=== PATIENT | female | born 1990 | race Caucasian/White ===

== ENCOUNTER 2019-10-15 06:32 | Inpatient (IN) | payer OTHER, SELFPAY ==
[2019-10-15] VITALS (139 sets, daily range): BP systolic 90–152; BP diastolic 31–94; PULSE 73–153; RESP 16; TEMP 36.6–37.9; O2SAT 97–100; BMI 42.6
[2019-10-15 07:40] LABS: Basophils Percent Auto 0.1 % (0.2-1.2); Eosinophils Absolute Auto 0.1 K/mm3 (0-0.3); Eosinophils Percent Auto 1.4 % (0-4.4); Hematocrit 27.8 % (37.0-47.0); Hemoglobin 8.8 g/dL (12.0-15.0); Immature Granulocyte Absolute 0.04 K/mm3 (0.00-0.031); Immature Granulocyte Percent A 0.6 % (0-0.5); Lymphocytes Absolute Auto 1.25 K/mm3 (0.9-3.2); Lymphocytes Percent Auto 17.9 % (18.3-44.2); Mean Corpuscular HGB Conc 31.7 g/dl (32-36); Mean Corpuscular Hemoglobin 25.4 pg (26-34); Mean Corpuscular Volume 80.3 fl (80-100); Mean Platelet Volume 9.6 fl (7.4-10.4); Monocytes Absolute Auto 0.6 K/mm3 (0.1-0.6); Platelet Count Result 183 k/mm3 (150-375); Red Blood Count 3.46 M/mm3 (4.2-5.4); Red Cell Distribution Width 13.6 % (11.5-14.5)
[2019-10-15] MEDS: LACTATED RINGERS 1,000 ML 125 ML IV CONT (07:44)
--- NOTE | 2019-10-15 07:52 | LDADM ---
This patient, Colin James, was admitted to Labor/Delivery/Recovery 106 on 10/15/19 at 06:32. Plans for labor, pain management and were discussed with patient. Patient/family oriented to hospital policies and general routines including ID bracelet, bed and alarms, visiting hours, pain management, procedures, bathroom and other care routines, personal items, smoking policy, room service/diet and guest tray routines, security routines, and visiting hours. Patient/Family are encouraged to report perceived risks to care and to ask questions if they do not understand what they are told or what they should do. See OBIX for further documentation.
--- NOTE | 2019-10-15 08:15 | WPDOBADMIT ---
Obstetrics - Admit Note Admission Note: 29 y/o @ 37w1d here for induction of labor d/t cholestasis and hypertension. record reviewed. No pertinent additions to the history and/or any subsequent changes in the physical findings that are not consistent with the expected course of the were found. Additions to the history and/or subsequent changes in the physical findings follow. None.
--- NOTE | 2019-10-15 09:57 | WPDANESEPP ---
Anes - Eval Pre Procedure Procedure: labor epidural Date/Time: 10/15/19 09:57 Surgeon: magy Preop Diagnosis: labor pain Pre Op Diagnosis: induction of labor Patient Data Age: 29 Gender: F Height: 1.73 m Weight: 127.27 kg Last Vital Signs Temp 37.6 C H 10/15/19 09:43 Pulse 86 10/15/19 09:57 BP 114/57 L 10/15/19 09:57 Pulse Ox 100 10/15/19 09:53 Allergies Allergy/AdvReac Type Severity Reaction Status Date / Time dimenhydrinate AdvReac Other Verified 09/09/19 12:56 [From Dramamine] hydrocodone [From Vicodin] AdvReac Nausea and Verified 09/09/19 12:56 Vomiting Home Medications Medication Instructions Recorded Confirmed Type amoxicillin 500 mg PO QID 10/07/19 10/15/19 History ursodiol 500 mg PO BID 10/07/19 10/15/19 History Laboratory Tests 10/15/19 10/15/19 10/15/19 06:53 06:53 06:53 WBC 7.0 K/mm3 K/mm3 (4.5-10.0) RBC 3.46 M/mm3 L M/mm3 (4.2-5.4) Hgb 8.8 g/dL L g/dL (12.0-15.0) Hct 27.8 % L % (37.0-47.0) MCV 80.3 fl fl (80-100) MCH 25.4 pg L pg (26-34) MCHC 31.7 g/dl L g/dl (32-36) RDW 13.6 % % (11.5-14.5) Plt Count 183 k/mm3 k/mm3 (150-375) MPV 9.6 fl fl (7.4-10.4) Immature Gran % (Auto) 0.6 % H % (0-0.5) Neut % (Auto) 71.0 % % (45.5-73.1) Lymph % (Auto) 17.9 % L % (18.3-44.2) Millard % (Auto) 9.0 % H % (2.6-8.5) Eos % (Auto) 1.4 % % (0-4.4) Baso % (Auto) 0.1 % L % (0.2-1.2) Lymph # (Auto) 1.25 K/mm3 K/mm3 (0.9-3.2) Millard # (Auto) 0.6 K/mm3 K/mm3 (0.1-0.6) Eos # (Auto) 0.1 K/mm3 K/mm3 (0-0.3) Baso # (Auto) 0.0 K/mm3 K/mm3 (0.0-0.1) Abs Immat Gran (auto) 0.04 K/mm3 H K/mm3 (0.00-0.031) Absolute Neuts (auto) 5.0 K/mm3 K/mm3 (1.3-6.7) Absolute Nucleated RBC 0.0 K/mm3 K/mm3 (0.0-0.012) Nucleated RBC % 0.0 % % (0.0-0.2) RPR Pending Blood Type O Positive Antibody Screen Negative Patient hx anesthesia problems: none Family hx anesthesia problems: none PMFSH Past Medical History Medical History (Updated 10/15/19 @ 10:01 by Dayna Lisa CRNA) Asthma Atrial tachycardia, paroxysmal Migraine Obesity Palpitations PCOS (polycystic ovarian syndrome) Preeclampsia with first , along with severe leg edema Sinus tachycardia Surgical History Surgical History History of orthopedic surgery multiple Family History Family History Mother History of blood clots Hypertension Hypothyroidism Grandparent Lupus Hyperthyroidism Stented coronary artery Grandparent Atrial fibrillation Grandparent Alzheimer disease Parkinson disease Grandparent Cancer Father Thyroid enlarged Social History Social History Smoking status: Never smoker Alcohol intake: former Drinks per week: 1 Substance use: never Gender identity (if verbalized by the patient): Female Spiritual care concerns: No Agree to blood products: Yes Exam Day of Procedure 10/15/19 09:57
--- NOTE | 2019-10-15 15:55 | P.PCNOB_ITS ---
OB - Delivery Note Procedure Delivery date: 10/15/19 Procedure: Cholestasis of Induction method: per pitocin protocol Delivery augmentation: rupture of membranes Delivery monitor: external FHT and external uterine Route of delivery: Episiotomy description: None Laceration description: Perineal - 1st Degree Delivery repair: vicryl Specimen: Yes Estimated blood loss (mL): 200 Anesthesia type: Epidural [place] Baby Date of : 10/15/19 Time of : 15:36 Weeks of gestation at delivery: 37 Weight (pounds): 7 Weight (ounces): 14 presentation: vertex position: Left Occiput Anterior Placenta delivery description: Spontaneous cord vessel description: 3 Vessels Narrative: Delivery per [facility]. Cord clamped at 2 minutes. I collected cord gasses myself. .75cc arterial 2cc venous. Then handed off to staff.
[2019-10-15] MEDS: WITCH HAZEL 40 PADS 1 PAD TOPICAL (20:08)
[2019-10-15] MEDS: BENZOCAINE 20% AER SPR (*SP) 56 GM CAN 1 SPRAY TOPICAL (20:08)
[2019-10-15] MEDS: IBUPROFEN 600 MG TABLET PO (20:32)
[2019-10-15] MEDS: POLYSACCHARIDE IRON COMPLEX 150 MG CAPSULE PO (20:33)
[2019-10-15] MEDS: DOCUSATE SODIUM 100 MG CAPSULE PO (20:33)
[2019-10-16 04:30] LABS: Hematocrit 26.1 % (37.0-47.0); Hemoglobin 8.1 g/dL (12.0-15.0)
--- NOTE | 2019-10-16 07:51 | P.PNOB_ITS ---
OB - PN: Subj Subjective Date/time seen: 10/16/19 07:51 Patient comments: no complaints and pain well controlled baby status: NICU OB - PN: Obj Data Labs CBC & Chem 7: 10/16/19 04:06 Labs: Laboratory Results - last 24 hr 10/15/19 10/16/19 06:53 04:06 Hgb 8.1 L Hct 26.1 L Blood Type O Positive Antibody Screen Negative OB - PN A/P Plan day: 1 Plan: discharge home and other Comments: RTC 4 weeks. Pt desires d/c d/t transfer. Time Spent With Patient Time: Total time spent is greater than 50% in coordination of care (as documented) at patient's floor/unit and/or counseling patient: Time with patient: less than 15 minutes Review of Systems 2 Review of Systems: All systems reviewed & are unremarkable except as noted in HPI and below Exam Narrative: Exam Narrative: Fundus firm and vaginal flow controlled. Lower ext nl. No redness, warmth, or tenderness. Neg homans. Const: General: comfortable Psych: Appearance: grossly normal Mental Status: mental status grossly normal Affect: normal affect Attitude: cooperative Judgement: Good judgement present (Psych)
--- NOTE | 2019-10-16 07:52 | PM.OBDSVD ---
DS: Diagnosis Admitting Diagnosis Admitting Diagnosis: Encounter for supervision of normal , unspecified, third trimester Discharge Diagnosis (1) Vaginal delivery: Code(s): O80 - Encounter for full-term uncomplicated delivery Status: Acute OB - DS: Summary Hospital Course Time spent discussing smoking cessation with patient: more than 10 minutes OB Procedures : None OB Procedures Intrapartum: Spontaneous Vag Delivery OB Procedures: : None Peripartum Data Delivery Method: Natural Vaginal complications: none Status at Discharge Functional status at discharge: independent ambulation Overall status at discharge: patient is back to baseline Time Spent with Patient Time attestation: Total time spent providing and/or coordinating discharge services: Time spent: Less than 30 minutes Specific discharge activities: Pt is going home early d/t transfer of infant. She does have a history of pre-eclampsia with previous . Denies symptoms. Very strict precautions given. Pt to return in 2 days for pp visit and at 1 week in our office. Pt verbalized understanding. Exam Const: General: comfortable Resp: Effort & Inspection: normal respiratory effort Auscultation: clear to auscultation bilaterally Cardio: Rate: regular rate Extrem: General: normal to inspection, no pedal edema and no calf tenderness Psych: Appearance: grossly normal Mental Status: mental status grossly normal Affect: normal affect Attitude: cooperative Thought content: Yes Normal thought content present Judgement: Good judgement present (Psych) Discharge Plan Discharge Attending physician on discharge: Bisi Agarwal Consulting providers: Guerline Matthews Discharging Clinician: Guerline Matthews Patient Disposition: Home, Self-Care Activity: pelvic rest Diet: as tolerated Discharge Instructions: Education: Mom and Baby Guide Given to: Mother Follow-Up: Call your delivering provider's office for an appointment to be seen in: 4-6 Weeks Mom should come to the [facility] for the follow-up appointment. Appointment Date/Time: October 18, 2019 at 11:00 am What to expect at your follow-up visit: Blood Pressure Check Physical Assessment Call [phone] if you are unable to keep your appointment time. BREAST CARE: 1. Wear a snug supportive bra. 2. For engorgement discomfort: Breast Feeding: A. Apply warm moist washcloths B. Express milk as needed to relieve engorgement C. Wear loose clothing 3. For sore nipples: A. Identify correct latch-on B. Apply warm moist washcloths before and after nursing C. Air dry nipples after nursing D. May apply Lansinoh cream to nipples PERINEAL CARE: 1. Until bleeding stops, use your ayleen bottle after urinating 2. Change your pad frequently throughout the day 3. You may take sitz baths several times a day (fill your bathtub with warm water and soak for 20 minutes.) Do NOT bathe in the water 4. No tub baths until seen by your physician - You may shower ACTIVITY: 1. Rest as much as possible. 2. Do not exercise or lift anything heavier than your baby (such as laundry or other children.) 3. Avoid stairs or driving as much as possible. 4. Do not put anything into the vagina. No douching, tampons, or sexual activity until seen by physician. NOTIFY PHYSICIAN IF YOU HAVE ANY QUESTIONS OR IF ANY OF THE FOLLOWING SYMPTOMS OCCUR: 1. If your perineum becomes red, swollen, or more painful than what you have experienced in the hospital. 2. If your vaginal bleeding becomes foul smelling. 3. If your vaginal bleeding becomes more heavy than a period or if your bleeding changes from brownish red to bright red. However, you may pass an occasional walnut-sized clot once or twice for the first week . 4. If you experience a sharp, shooting pain in your
[2019-10-16 08:10] VITALS: BP 145/93; PULSE 89; RESP 18; TEMP 36.2; O2SAT 100
[2019-10-16] MEDS: MULTIVIT/MIN/PREN/FOL AC/IRON TABLET 1 TAB PO (08:14)
[2019-10-16] MEDS: DOCUSATE SODIUM 100 MG CAPSULE PO (08:15)
[2019-10-16] MEDS: POLYSACCHARIDE IRON COMPLEX 150 MG CAPSULE PO (08:15)
[2019-10-16] MEDS: IBUPROFEN 600 MG TABLET PO (08:15)
--- NOTE | 2019-10-16 08:29 | WPDANLDPN2 ---
Anes-Prog Note L&D Date/Time: 10/16/19 08:29 Comfortable throughout: labor and delivery Neuraxial method: epidural Epidural/Spinal procedure site: clean & non-tender Neuro status: Neuro function grossly intact. Cardiovascular status: normal Respiratory status: normal Airway patency: baseline Mental status: baseline Post-Op hydration status: normal Vital Signs: Last Vital Signs Temp 37.1 C 10/15/19 20:15 Pulse 107 H 10/15/19 20:15 Resp 16 10/15/19 20:15 BP 122/84 10/15/19 20:15 Pulse Ox 100 10/15/19 15:22 I/O: Intake & Output 10/15/19 10/16/19 10/16/19 23:59 07:59 15:59 Intake Total 1500 Output Total 125 Balance 1375 Patient feedback: Patient satisfied with anesthetic care.
--- NOTE | 2019-10-16 08:30 | PC.NURSE ---
Consult with pt., mother is pumping due to transfer. Mother reports she has a double electric pump for home use. Reviewed instructions on breast pump care and usage, pumping schedule, nipple care, and collection and storage of breast milk. Encouraged [id number], breast massage and manual expression to stimulate supply. Pumping log provided and reviewed. Assessed patient for correct flange size, placement and draw. Patient verbalizes and demonstrates understanding of instructions.
[2019-10-16 08:46] LABS: Rapid Plasma Reagin Non-Reactive (NonReactive)
== END 2019-10-16 10:59 | disposition home or self-care (01) | DRG 560 ==
LOC: ANHLDR 06:36 → ANHOB2 21:07
PROVIDERS: Advanced Practice Midwife; Admitting Provider Obstetrics & Gynecology; Visit Provider Obstetrics & Gynecology
DX: O26.62 Liver and biliary tract disorders in childbirth (principal); Z37.0 Single live birth; Z3A.37 37 weeks gestation of pregnancy; K83.1 Obstruction of bile duct; O16.4 Unspecified maternal hypertension, complicating childbirth; O70.0 First degree perineal laceration during delivery; O99.214 Obesity complicating childbirth; E66.9 Obesity, unspecified; O99.52 Diseases of the respiratory system complicating childbirth; J45.909 Unspecified asthma, uncomplicated
CPT/HCPCS: 36415; 85014; 85018; 85025; 86592; 86850; 86900; 86901; A9270; J2590; J2795; J7120

== ENCOUNTER 2019-10-19 13:52 | Observation (INO) | payer OTHER, SELFPAY ==
[2019-10-19] VITALS (45 sets, daily range): BP systolic 128–164; BP diastolic 70–102; PULSE 98–149; RESP 20–22; TEMP 36.6–37; O2SAT 99–100; BMI 39.6
--- NOTE | ~2019-10-19 | XR_ITS ---
EXAMINATION: XR chest 2V DATE: 10/19/2019 15:20 INDICATION: Shortness of breath TECHNIQUE: PA and lateral views of the chest are obtained. COMPARISON: None available FINDINGS: The lungs are free of acute opacities. There is no pleural effusion or pneumothorax. The ca rdiomediastinal silhouette is normal. The visualized bones and soft tissues are unremarkable. IMPRESSION: 1. No acute cardiopulmonary abnormality. Reviewed, dictated and finalized at location A. SETTLEMENT CLERK
--- NOTE | 2019-10-19 14:59 | ED_ITS ---
I attest that this documentation has been prepared under the direction and in the presence of Kristine Will MD. Rusty Griffin Scribe 10/19/19;15:00 HPI - General Adult General Chief complaint: Unspecified Stated complaint: Post edema Time Seen by Provider: 10/19/19 14:56 Related Data Home Medications Medication Instructions Recorded Confirmed amoxicillin 500 mg PO QID 10/07/19 10/15/19 Allergies Allergy/AdvReac Type Severity Reaction Status Date / Time dimenhydrinate AdvReac Other Verified 09/09/19 12:56 [From Dramamine] hydrocodone [From Vicodin] AdvReac Nausea and Verified 09/09/19 12:56 Vomiting PMFSH Past Medical History Medical History (Updated 10/15/19 @ 10:01 by Dayna Lisa CRNA) Asthma Atrial tachycardia, paroxysmal Migraine Obesity Palpitations PCOS (polycystic ovarian syndrome) Preeclampsia with first , along with severe leg edema Sinus tachycardia Surgical History Surgical History History of orthopedic surgery multiple Social History Social History Smoking status: Never smoker Alcohol intake: former Drinks per week: 1 Substance use: never Gender identity (if verbalized by the patient): Female Spiritual care concerns: No Agree to blood products: Yes Course Vital Signs Vital signs: Vital Signs Temperature 36.8 C 10/19/19 13:55 Pulse Rate 101 H 10/19/19 13:55 Respiratory Rate 20 10/19/19 13:55 Blood Pressure 146/95 H 10/19/19 13:55 Pulse Oximetry 100 10/19/19 13:55 Temperature 36.8 C 10/19/19 13:55 Pulse Rate 104 H 10/19/19 14:35 Respiratory Rate 22 H 10/19/19 14:36 Blood Pressure 140/95 H 10/19/19 14:35 Pulse Oximetry 99 10/19/19 14:35 Medical Decision Making Vital Signs Vital Signs: Vital Signs Temperature 36.8 C 10/19/19 13:55 Pulse Rate 101 H 10/19/19 13:55 Respiratory Rate 20 10/19/19 13:55 Blood Pressure 146/95 H 10/19/19 13:55 Pulse Oximetry 100 10/19/19 13:55 Temperature 36.8 C 10/19/19 13:55 Pulse Rate 104 H 10/19/19 14:35 Respiratory Rate 22 H 10/19/19 14:36 Blood Pressure 140/95 H 10/19/19 14:35 Pulse Oximetry 99 10/19/19 14:35 Discharge Plan Discharge Prescriptions: No Action amoxicillin 500 mg Capsule 500 mg PO QID RF: 0 polysaccharide iron complex 150 mg iron Capsule 150 mg PO BIDWM Qty: 60 RF: 0
--- NOTE | 2019-10-19 15:01 | ED.SOB ---
HPI - SOB/Dyspnea General Chief Complaint: Unspecified Stated Complaint: Post edema Time Seen by Provider: 10/19/19 14:56 Source: patient and RN notes reviewed Mode of arrival: ambulatory Limitations: no limitations History of Present Illness HPI Narrative: Pt is a 29 y/o female presenting to the ED c/o SOB. Pt reports she started experiencing SOB since yesterday. Pt describes her SOB as inability to take a deep breath and notes it is worsened when lying flat. Pt states she had a vaginal 4 days ago, noting it was her 2nd . Pt states she developed Pulmonary edema post- from her 1st in 2018 and states her Sx's feel similar to that occurrence. Pt also notes she developed Preeclampsia and was sick during her 1st , but denies becoming preeclamptic during this last . Pt also reports chest tightness and dry cough. 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 Pt states she has never seen a Mirror Painter. Pt notes she is currently . Pertinent past history: other (Pulmonary edema post-) Onset (ago): day(s) (1) Exacerbating factors: lying flat Associated symptoms: chest pain (Tightness) and cough (Dry) Related Data Home Medications Medication Instructions Recorded Confirmed amoxicillin 500 mg PO QID 10/07/19 10/15/19 Allergies Allergy/AdvReac Type Severity Reaction Status Date / Time dimenhydrinate AdvReac Other Verified 09/09/19 12:56 [From Dramamine] hydrocodone [From Vicodin] AdvReac Nausea and Verified 09/09/19 12:56 Vomiting Review of Systems Review of Systems: All systems reviewed & are unremarkable except as noted in HPI and below Cardiovascular: Cardiovascular: Reports chest pain (Tightness) Respiratory: Respiratory: Reports cough (Dry) and Reports dyspnea PMFSH Past Medical History Medical History (Updated 10/19/19 @ 17:06 by Kristine Will MD) Asthma Atrial tachycardia, paroxysmal Migraine Obesity Palpitations PCOS (polycystic ovarian syndrome) Preeclampsia with first , along with severe leg edema Pulmonary edema Post- with 1st Sinus tachycardia Surgical History Surgical History History of orthopedic surgery Rt bunionectomy and rt shoulder surgery x2 Family History Family History Mother History of blood clots Hypertension Hypothyroidism Grandparent Lupus Hyperthyroidism Stented coronary artery Grandparent Atrial fibrillation Grandparent Alzheimer disease Parkinson disease Grandparent Cancer Father Thyroid enlarged Social History Social History Smoking status: Never smoker Alcohol intake: former Drinks per week: 1 Substance use: never Gender identity (if verbalized by the patient): Female Spiritual care concerns: No Agree to blood products: Yes Exam Const: General: cooperative, no acute distress and alert Nutritional Appearance: well nourished Orientation/consciousness: patient oriented x3 Limitations: no limitations HENMT: Mouth: Yes lip normal Resp: Effort & Inspection: normal respiratory effort Auscultation: clear to auscultation bilaterally and diminished lung sounds (Slightly bilaterally) Cardio: Rate: tachycardic (Borderline) Rhythm: regular rhythm Peripheral pulses: dorsalis pedis present (2+) GI: GI Palp: Yes Soft to palpation and No Tenderness to palpation present (GI) Auscultation: normal bowel sounds Skin: General skin exam: normal color Neuro: General: patient oriented x3 Cognition (Neuro): normal cognition Speech: normal speech Extrem: General: normal to inspection, full ROM and edema (Mild pitting BLE edema bilaterally) Psych: Mental Status: mental status grossly normal Affect: normal affect Attitude: cooperative Course Course Emerge
--- NOTE | 2019-10-19 15:06 | ECG_ITS ---
Measurements Intervals Phelps Rate: 100 P: 146 VT: 148 QRS: -10 QRSD: 87 T: -26 QT: 342 QTc: 441 Interpretive Statements ECTOPIC ATRIAL TACHYCARDIA POSSIBLE LEFT ATRIAL ENLARGEMENT LOW QRS VOLTAGE IN LIMB LEADS BORDERLINE T WAVE ABNORMALITY- ANT/INF LEADS ABNORMAL ECG Electronically Signed On 10-20-2019 7:43:32 NAPPER GRINDER by Dontrell Davis D.O.
[2019-10-19] MEDS: hydrALAZINE HCL 20 MG/ML VIAL 10 MG IV PUSH ×2 (15:28→16:18)
[2019-10-19 15:37] LABS: Basophils Percent Auto 0.2 % (0.2-1.2); Eosinophils Absolute Auto 0.2 K/mm3 (0-0.3); Eosinophils Percent Auto 3.2 % (0-4.4); Hematocrit 28.1 % (37.0-47.0); Hemoglobin 8.5 g/dL (12.0-15.0); Immature Granulocyte Absolute 0.03 K/mm3 (0.00-0.031); Immature Granulocyte Percent A 0.6 % (0-0.5); Lymphocytes Absolute Auto 0.99 K/mm3 (0.9-3.2); Lymphocytes Percent Auto 18.4 % (18.3-44.2); Mean Corpuscular HGB Conc 30.2 g/dl (32-36); Mean Corpuscular Hemoglobin 25.2 pg (26-34); Mean Corpuscular Volume 83.4 fl (80-100); Monocytes Absolute Auto 0.5 K/mm3 (0.1-0.6); Monocytes Percent Auto 8.7 % (2.6-8.5); Neutrophils Absolute Auto 3.7 K/mm3 (1.3-6.7); Neutrophils Percent Auto 68.9 % (45.5-73.1); Platelet Count Result 234 k/mm3 (150-375); Red Blood Count 3.37 M/mm3 (4.2-5.4); Red Cell Distribution Width 14.6 % (11.5-14.5); White Blood Count 5.4 K/mm3 (4.5-10.0)
[2019-10-19 15:42] LABS: Add Urine Microscopic? YES; Appearance Urine Clear (Clear); Bacteria Urine Trace /hpf; Bilirubin Urine Negative (Negative); Blood Urine 3+ (Negative); Color Urine Straw (Yellow); Glucose Urine UA Negative (Negative); Ketones Urine Negative (Negative); Leukocyte Esterase Ur Trace LEU/UL (Negative); Nitrate Urine Negative (Negative); Protein Urine Negative (Negative); Specific Grav Ur 1.008 (1.001-1.035); Squamous Epithelial Cell Urine Rare /hpf (Few); Urobilinogen Urine Negative mg/dL (<2.0); WBC Urine 0-3 /hpf
[2019-10-19 15:47] LABS: INR 0.9; Prothrombin Time 11.7 Seconds (11.1-14.7)
[2019-10-19 15:48] LABS: Partial Thromboplastin Time 26.5 SECONDS (22.3-36.8)
[2019-10-19 15:50] LABS: Alanine Aminotransferase 23 U/L (4-35); Albumin Level 3.4 g/dL (3.5-5.1); Alkaline Phosphatase 103 U/L (38-126); Aspartate Amino Transferase 27 U/L (14-36); Bilirubin,Total 0.4 mg/dL (0.2-1.3); Blood Urea Nitrogen 4 mg/dL (7-17); Calcium 7.9 mg/dL (8.4-10.2); Carbon Dioxide 27 mmol/L (22-30); Chloride 101 mmol/L (98-107); Estimated Glomerular Filt Rate > 60; Glucose 89 mg/dL (65-105); Potassium 3.4 mmol/L (3.4-5.0); Sodium 138 mmol/L (137-145)
[2019-10-19 15:51] LABS: Uric Acid 5.3 mg/dL (2.5-7.5)
[2019-10-19 16:02] LABS: NT Pro B Type Natriuretic Pept 405 PG/ML (5-100); Troponin I < 0.012 ng/mL (0.000-0.034)
[2019-10-19] MEDS: FUROSEMIDE INJ 40 MG/4 ML VIAL IV PUSH (16:23)
[2019-10-19] MEDS: MAGNESIUM SULF 4 GM/WATER100ML 4 GM/100 ML BAG IVPB (16:24)
[2019-10-19] MEDS: MAGNESIUM SULF 20GM/WATER500ML 500 ML 50 MG IV CONT (18:08)
[2019-10-19] MEDS: LACTATED RINGERS 1,000 ML 75 ML IV CONT (18:08)
[2019-10-19] MEDS: ACETAMINOPHEN 325 MG TABLET 650 MG PO ×2 (18:42→23:59)
--- NOTE | 2019-10-19 19:00 | PC.NURSE ---
Pt tachycardic. Denies feeling like heart is racing or pounding. States she has had runs of SVT during her and has seen a sales account specialist. Will notify RN if anything changes.
[2019-10-19] MEDS: IBUPROFEN 600 MG TABLET PO (22:37)
[2019-10-20] VITALS (9 sets, daily range): BP systolic 115–140; BP diastolic 56–82; PULSE 81–99; TEMP 36.4–37.1; O2SAT 97–100
[2019-10-20 00:36] LABS: Alanine Aminotransferase 23 U/L (4-35); Albumin Level 3.6 g/dL (3.5-5.1); Alkaline Phosphatase 127 U/L (38-126); Aspartate Amino Transferase 28 U/L (14-36); Bilirubin,Total 0.5 mg/dL (0.2-1.3); Blood Urea Nitrogen 6 mg/dL (7-17); Calcium 7.6 mg/dL (8.4-10.2); Carbon Dioxide 26 mmol/L (22-30); Chloride 97 mmol/L (98-107); Estimated CRCL calculation 141 ml/min; Estimated Glomerular Filt Rate > 60; Glucose 108 mg/dL (65-105); Potassium 3.3 mmol/L (3.4-5.0); Sodium 136 mmol/L (137-145); Uric Acid 5.4 mg/dL (2.5-7.5)
[2019-10-20] MEDS: MAGNESIUM SULF 20GM/WATER500ML 500 ML 50 MG IV CONT ×2 (03:29→14:53)
[2019-10-20 06:07] LABS: Alanine Aminotransferase 20 U/L (4-35); Albumin Level 3.3 g/dL (3.5-5.1); Alkaline Phosphatase 115 U/L (38-126); Aspartate Amino Transferase 24 U/L (14-36); Bilirubin,Total 0.5 mg/dL (0.2-1.3); Blood Urea Nitrogen 6 mg/dL (7-17); Calcium 6.8 mg/dL (8.4-10.2); Carbon Dioxide 27 mmol/L (22-30); Chloride 97 mmol/L (98-107); Estimated CRCL calculation 162 ml/min; Estimated Glomerular Filt Rate > 60; Glucose 96 mg/dL (65-105); Potassium 2.9 mmol/L (3.4-5.0); Sodium 137 mmol/L (137-145)
[2019-10-20] MEDS: LACTATED RINGERS 1,000 ML 75 ML IV CONT (07:42)
[2019-10-20] MEDS: ACETAMINOPHEN 325 MG TABLET 650 MG PO (07:49)
--- NOTE | 2019-10-20 07:57 | PM.IMHP ---
H&P: HPI History of Present Illness Chief complaint: Post edema Narrative: Colin James is a 29 year old multiparous female who is day 5. Approximately. She has a history of preeclampsia with pulmonary edema. She contacted us complaining of symptoms she stated was similar to when she had pulmonary edema. She went to the emergency department. She was found to have elevated blood pressures. She is placed on magnesium sulfate. Her labs were essentially normal. Her symptoms are mild. We agreed to observe her for 24 hours and keep her on magnesium sulfate. Review of Systems Constitutional: Constitutional: Reports no additional constitutional complaints, Denies fatigue, Denies headache(s), Denies lethargy and Denies weakness Eyes: Eyes: Reports no additional eye complaints, Denies blurry vision and Denies photophobia ENT: Reports as per HPI, Denies headache(s) and Denies neck pain Cardiovascular: Cardiovascular: Denies chest pain, Denies diaphoresis, Denies leg edema, Denies palpitations and Denies dyspnea Respiratory: Respiratory: Denies hemoptysis, Denies dyspnea and Denies wheezing Gastrointestinal: Gastrointestinal: Denies abdominal pain, Denies melena, Denies bloating, Denies hematochezia, Denies nausea and Denies vomiting Genitourinary: Genitourinary: Reports no additional female genitourinary complaints Musculoskeletal: Musculoskeletal: Denies joint swelling, Denies neck pain, Denies numbness and Denies stiffness Neurologic: Denies Abnormal speech present, Denies confusion, Denies headache(s), Denies numbness and Denies weakness Psychiatric: Psychiatric: Denies anxiety, Denies confusion, Denies depression, Denies homicidal ideation and Denies suicidal ideation Endocrine: Endocrine: Denies fatigue and Denies palpitations Allergic/Immunologic: Allergic/Immunologic: Denies wheezing [facility] Past Medical History Medical History (Updated 10/19/19 @ 17:06 by Kristine Will MD) Asthma Atrial tachycardia, paroxysmal Migraine Obesity Palpitations PCOS (polycystic ovarian syndrome) Preeclampsia with first , along with severe leg edema Pulmonary edema Post- with 1st Sinus tachycardia Surgical History Surgical History History of orthopedic surgery Rt bunionectomy and rt shoulder surgery x2 Family History Family History Mother History of blood clots Hypertension Hypothyroidism Grandparent Lupus Hyperthyroidism Stented coronary artery Grandparent Atrial fibrillation Grandparent Alzheimer disease Parkinson disease Grandparent Cancer Father Thyroid enlarged Social History Social History Smoking status: Never smoker Alcohol intake: former Drinks per week: 1 Substance use: never Gender identity (if verbalized by the patient): Female Spiritual care concerns: No Agree to blood products: Yes Meds Home Medications and Allergies Home Medications Medication Instructions Recorded Confirmed Type No Home Medications 10/19/19 10/19/19 History Allergies Allergy/AdvReac Type Severity Reaction Status Date / Time dimenhydrinate AdvReac Other Verified 09/09/19 12:56 [From Dramamine] hydrocodone [From Vicodin] AdvReac Nausea and Verified 09/09/19 12:56 Vomiting Vital Signs Vital Signs - 24 hr 10/19/19 13:55 10/19/19 14:35 10/19/19 14:36 Temperature 98.2 F Pulse Rate 101 H 104 H Respiratory Rate 20 22 H 22 H Blood Pressure 146/95 H 140/95 H Pulse Oximetry 100 99 10/19/19 15:08 10/19/19 16:04 10/19/19 16:21 Temperature Pulse Rate 98 108 H 106 H Respiratory Rate 20 20 20 Blood Pressure 164/98 H 140/93 H 150/102 H Pulse Oximetry 99 100 100 10/19/19 16:42 10/19/19 17:07 10/19/19 17:12 Temperature Pulse Rate 103 H Respiratory Rate 20 Blood Pressure 15
[2019-10-20] MEDS: IBUPROFEN 600 MG TABLET PO (12:08)
--- NOTE | 2019-10-20 16:45 | PC.NURSE ---
Dr Agarwal notified of 24 hour on Mag, BP's and urine output. OK to dc home in two hours if BP's ok.
== END 2019-10-20 19:13 | disposition home or self-care (01) ==
LOC: ANHED 16:16 → ANHOBPP 16:33
PROVIDERS: Admitting Provider Obstetrics & Gynecology; Emergency Provider Emergency Medicine; Visit Provider Obstetrics & Gynecology
DX: O14.95 Unspecified pre-eclampsia, complicating the puerperium (principal); Z87.59 Personal history of other complications of pregnancy, childbirth and the puerperium; R06.02 Shortness of breath
CPT/HCPCS: 36415; 71046; 80053; 81001; 83735; 83880; 84484; 84550; 85025; 85610; 85730; 93005; 96361; 96365; 96366; 96375; 96376; 99285; A9270; G0378; G0379; J0360; J1940; J3475; J7120

== ENCOUNTER 2022-12-13 18:23 | Observation (INO) | payer OTHER, SELFPAY ==
[2022-12-13 18:37] VITALS: BMI 33.0
--- NOTE | 2022-12-13 18:38 | OBADM ---
This patient, Colin James, admitted to the OB room OB Post 117 for observation. Patient/family oriented to hospital policies and general routines including ID bracelet, bed and alarms, visiting hours, pain management, procedures, bathroom and other care routines, personal items, smoking policy, room service/diet, and visiting hours. Patient/Family are encouraged to report perceived risks to care and to ask questions if they do not understand what they are told or what they should do.
[2022-12-13 18:46] VITALS: BP 112/62; PULSE 81; RESP 16; TEMP 36.6
[2022-12-13 18:55] LABS: Glucose Point of Care 69 mg/dl (65-105)
[2022-12-13 19:00] VITALS: BP 112/65; PULSE 83
[2022-12-13 19:15] VITALS: BP 119/65; PULSE 89
[2022-12-13 20:22] LABS: Glucose Point of Care 84 mg/dl (65-105)
[2022-12-13 20:32] LABS: Basophils Percent Auto 0.3 % (0.2-1.2); Eosinophils Absolute Auto 0.1 K/mm3 (0-0.3); Eosinophils Percent Auto 0.9 % (0-4.4); Hematocrit 28.5 % (37.0-47.0); Hemoglobin 9.1 g/dL (12.0-15.0); Immature Granulocyte Absolute 0.02 K/mm3 (0.00-0.031); Immature Granulocyte Percent A 0.3 % (0-0.5); Lymphocytes Absolute Auto 1.25 K/mm3 (0.9-3.2); Lymphocytes Percent Auto 18.2 % (18.3-44.2); Mean Corpuscular HGB Conc 31.9 g/dl (32-36); Mean Corpuscular Hemoglobin 29.8 pg (26-34); Mean Corpuscular Volume 93.4 fl (80-100); Mean Platelet Volume 8.6 fl (7.4-10.4); Monocytes Absolute Auto 0.6 K/mm3 (0.1-0.6); Monocytes Percent Auto 9.3 % (2.6-8.5); Neutrophils Absolute Auto 4.9 K/mm3 (1.3-6.7); Platelet Count Result 194 k/mm3 (150-375); Red Blood Count 3.05 M/mm3 (4.2-5.4); Red Cell Distribution Width 13.3 % (11.5-14.5); White Blood Count 6.9 K/mm3 (4.5-10.0)
[2022-12-13 20:43] LABS: Alanine Aminotransferase 15 U/L (6-35); Albumin Level 3.5 g/dL (3.5-5.1); Alkaline Phosphatase 52 U/L (38-126); Anion Gap 5 mmol/L (8-16); Aspartate Amino Transferase 22 U/L (14-36); Bilirubin,Total 0.3 mg/dL (0.2-1.3); Blood Urea Nitrogen 9 mg/dL (7-17); Calcium 8.6 mg/dL (8.4-10.2); Carbon Dioxide 27 mmol/L (22-30); Chloride 106 mmol/L (98-107); Estimated CRCL calculation 158 ml/min; Estimated Glomerular Filt Rate > 60; Glucose 79 mg/dL (65-110); Potassium 3.7 mmol/L (3.4-5.0); Sodium 138 mmol/L (137-145)
[2022-12-13 21:13] LABS: Thyroid Stimulating Hormone 0.584 uIU/mL (0.465-4.680)
--- NOTE | 2022-12-30 09:22 | PM.OBTRLD ---
OB - Triage/Final Diagnosis Visit Information Comments/Additional reasons for admission: I have assessed the risk for this patient, Colin James, and determined that she would benefit from observation care. Evaluation Laboratory results: Laboratory Tests 12/13/22 12/13/22 12/13/22 18:50 20:19 20:25 WBC 6.9 RBC 3.05 L Hgb 9.1 L Hct 28.5 L MCV 93.4 MCH 29.8 MCHC 31.9 L RDW 13.3 Plt Count 194 MPV 8.6 Immature Gran % (Auto) 0.3 Neut % (Auto) 71.0 Lymph % (Auto) 18.2 L Patrick % (Auto) 9.3 H Eos % (Auto) 0.9 Baso % (Auto) 0.3 Lymph # (Auto) 1.25 Patrick # (Auto) 0.6 Eos # (Auto) 0.1 Baso # (Auto) 0.0 Abs Immat Gran (auto) 0.02 Absolute Neuts (auto) 4.9 Absolute Nucleated RBC 0.0 Nucleated RBC % 0.0 Sodium 138 Potassium 3.7 Chloride 106 Carbon Dioxide 27 Anion Gap 5 L BUN 9 Creatinine 0.50 L Estim Creat Clear Calc 158 Estimated GFR > 60 Glucose 79 POC Capillary Glucose 69 84 Calcium 8.6 Total Bilirubin 0.3 AST 22 ALT 15 Alkaline Phosphatase 52 Total Protein 7.0 Albumin 3.5 TSH 0.584 Final Diagnosis (1) Dizziness: Code(s): R42 - Dizziness and giddiness Status: Acute
== END 2022-12-13 21:30 | disposition home or self-care (01) ==
PROVIDERS: Obstetrics & Gynecology; Admitting Provider Obstetrics & Gynecology; PCP Nurse Practitioner Family; Referring Provider Advanced Practice Midwife; Visit Provider Obstetrics & Gynecology
DX: O26.892 Other specified pregnancy related conditions, second trimester (principal); R42 Dizziness and giddiness; Z3A.24 24 weeks gestation of pregnancy
CPT/HCPCS: 36415; 80053; 82948; 84443; 85025; G0378; G0379

== ENCOUNTER 2022-12-18 13:37 | Outpatient (CLI) | payer OTHER, SELFPAY ==
--- NOTE | 2022-12-25 16:32 | WPDHOLTEREM ---
Holter/Event Monitor Holter/Event Monitor Date of procedure: 12/18/22 Holter/Event Procedure: 24 Hr Holter Monitor Indications: Tachycardia Conclusion: 1. 24 hour holter monitor on 12/18/22. 2. Underlying rhythm is sinus rhythm. HR range 54-136 bpm; average HR 85 bpm. 3. There are 9 premature supraventricular complexes. No supraventricular tachycardia. 4. There are 4 premature ventricular complexes. No ventricular tachycardia. 5. No sinoatrial or atrioventricular blocks. No significant pauses greater than 2 seconds. 6. No symptoms available for correlation.
== END 2022-12-18 13:38 | disposition home or self-care (01) ==
PROVIDERS: PCP Nurse Practitioner Family; Visit Provider Advanced Practice Midwife
DX: R00.0 Tachycardia, unspecified (principal)
CPT/HCPCS: 93225; 93226

== ENCOUNTER 2023-03-19 16:36 | Inpatient (IN) | payer OTHER, SELFPAY ==
[2023-03-19] VITALS (81 sets, daily range): BP systolic 93–134; BP diastolic 46–92; PULSE 69–176; TEMP 36.8–37; O2SAT 98–100; BMI 36.3
--- NOTE | 2023-03-19 16:36 | LDADM ---
This patient, Colin James, was admitted to Labor/Delivery/Recovery 103 on 03/19/23 at 16:36. Plans for labor, pain management and were discussed with patient.pt started to have vaginal bleeding. no leaking fluid. no contractions. advised to come to hospital. Patient/family oriented to hospital policies and general routines including ID bracelet, bed and alarms, visiting hours, pain management, procedures, bathroom and other care routines, personal items, smoking policy, room service/diet and guest tray routines, infant security routines, and visiting hours. Patient/Family are encouraged to report perceived risks to care and to ask questions if they do not understand what they are told or what they should do. See OBIX for further documentation.
[2023-03-19 18:13] LABS: Basophils Percent Auto 0.2 % (0.2-1.2); Eosinophils Percent Auto 0.8 % (0-4.4); Hematocrit 33.7 % (37.0-47.0); Hemoglobin 10.9 g/dL (12.0-15.0); Immature Granulocyte Absolute 0.01 K/mm3 (0.00-0.031); Immature Granulocyte Percent A 0.2 % (0-0.5); Lymphocytes Absolute Auto 0.83 K/mm3 (0.9-3.2); Lymphocytes Percent Auto 15.6 % (18.3-44.2); Mean Corpuscular HGB Conc 32.3 g/dl (32-36); Mean Corpuscular Hemoglobin 28.2 pg (26-34); Mean Corpuscular Volume 87.3 fl (80-100); Mean Platelet Volume 9.7 fl (7.4-10.4); Monocytes Absolute Auto 0.5 K/mm3 (0.1-0.6); Monocytes Percent Auto 10.2 % (2.6-8.5); Neutrophils Absolute Auto 3.9 K/mm3 (1.3-6.7); Platelet Count Result 211 k/mm3 (150-375); Red Blood Count 3.86 M/mm3 (4.2-5.4); Red Cell Distribution Width 13.9 % (11.5-14.5); White Blood Count 5.3 K/mm3 (4.5-10.0)
[2023-03-19] MEDS: LACTATED RINGERS 1,000 ML 125 ML IV CONT ×2 (18:16→20:05)
[2023-03-19] MEDS: OXYTOCIN 30 UNITS/NS 500 ML 30 UNITS/500 ML BAG IV CONT (18:16)
[2023-03-19 19:03] LABS: HIV 1/2 Ab P24 Ag Result Negative (Negative)
--- NOTE | 2023-03-19 19:16 | PM.IMHP ---
H&P: HPI History of Present Illness Date/Time: 03/19/23 19:16 Chief Complaint: vaginal bleeding Narrative: Colin is a 32yo @ 38.1wks who presented to L&D with vaginal bleeding. She was examined and found to have some vaginal bleeding; heart tones were reassuring and she was 3cm. She has been following with [facility] and has never had any abnormal placentation. Shortly after that exam, she had SROM at 1800, clear. She is having contractions and has made change to 5cm (1935) Her is complicated by: - H/o PEC x 2 on ASA 162 (had pulm edema in past) - Anemia getting iron transfusions - H/o cholestasis x2 - hypoglycemia? normal growths - H/o gastric sleeve - polyhydramnios; YANI 24.3 on [facility] US in 12/2022 Review of Systems Constitutional: Constitutional: Denies chills, Denies fever(s) and Denies headache(s) Eyes: Eyes: Denies change in vision ENT: Denies headache(s) Cardiovascular: Cardiovascular: Denies chest pain and Denies dyspnea Respiratory: Respiratory: Denies dyspnea Genitourinary: Genitourinary: Denies abnormal vaginal bleeding and Denies vaginal discharge Neurologic: Denies headache(s) Psychiatric: Psychiatric: Denies anxiety and Denies depression [facility] Past Medical History Medical History 29 to 30 weeks gestation of Anxiety Asthma Atrial tachycardia, paroxysmal BMI 29.0-29.9,adult Currently Elevated liver enzymes Encounter to establish care History of severe pre-eclampsia Hypomagnesemia Migraine Obesity Palpitations PCOS (polycystic ovarian syndrome) Pre-eclampsia, Preeclampsia with first , along with severe leg edema labor Pulmonary edema Post- with 1st Screening for tuberculosis Sinus tachycardia Vaginal delivery Surgical History Surgical History H/O gastric sleeve History of orthopedic surgery Rt bunionectomy and rt shoulder surgery x2 Family History Family History (Updated 03/13/23 @ 15:24 by Lizz Dhillon RN) Mother History of blood clots Hypothyroidism Hypertension Grandparent Stented coronary artery Lupus Hyperthyroidism Grandparent Atrial fibrillation Grandparent Alzheimer disease Parkinson disease Grandparent Cancer Father Thyroid enlarged Hypothyroidism Social History Social History Smoking status: Never smoker Second hand tobacco smoke exposure: No Alcohol intake: former Substance use: never Substance use type: does not use Lack of Transportation: No Lack of Food: Never True Current Housing: I Have Housing Concerned About Future Housing: No Difficulty Paying Gas/Electric Bills: No Difficulty Paying for Meds: No Currently Unemployed: No Education: High School Diploma/GED Difficulty w/ Childcare or Family Care: No Living arrangements: with family Gender identity (if verbalized by the patient): Female Spiritual care concerns: No Agree to blood products: Yes Meds Home Medications and Allergies Home Medications Medication Instructions Recorded Confirmed Type albuterol sulfate 90 mcg/actuation 1 - 2 inh inhalation Q4-6H PRN 06/29/22 03/13/23 Rx aerosol inhaler shortness of breath or wheezing #8.5 grams prenat.vits,lupe,[id number] 1 tablet PO DAILY 07/27/22 03/13/23 History aspirin 81 mg chewable tablet 81 mg PO DAILY 01/10/23 03/13/23 History escitalopram oxalate 10 mg tablet 20 mg PO DAILY 03/19/23 03/19/23 History (Lexapro) Allergies Allergy/AdvReac Type Severity Reaction Status Date / Time dimenhydrinate AdvReac Other Verified 03/13/23 15:22 [From Dramamine] hydrocodone [From Vicodin] AdvReac Nausea and Verified 03/13/23 15:22 Vomiting Vital Signs Vital Signs - 24 hr 03/19/23 17:30 03/19/23 17:45 03/19/23 18:00 Temper
[2023-03-19 19:24] LABS: Basophils Percent Auto 0.2 % (0.2-1.2); Eosinophils Percent Auto 0.7 % (0-4.4); Hematocrit 33.6 % (37.0-47.0); Immature Granulocyte Absolute 0.02 K/mm3 (0.00-0.031); Immature Granulocyte Percent A 0.4 % (0-0.5); Lymphocytes Absolute Auto 0.87 K/mm3 (0.9-3.2); Lymphocytes Percent Auto 15.4 % (18.3-44.2); Mean Corpuscular HGB Conc 32.7 g/dl (32-36); Mean Corpuscular Hemoglobin 29.2 pg (26-34); Mean Corpuscular Volume 89.1 fl (80-100); Mean Platelet Volume 9.7 fl (7.4-10.4); Monocytes Absolute Auto 0.4 K/mm3 (0.1-0.6); Monocytes Percent Auto 6.7 % (2.6-8.5); Neutrophils Absolute Auto 4.3 K/mm3 (1.3-6.7); Neutrophils Percent Auto 76.6 % (45.5-73.1); Platelet Count Result 193 k/mm3 (150-375); Red Blood Count 3.77 M/mm3 (4.2-5.4); Red Cell Distribution Width 13.9 % (11.5-14.5); White Blood Count 5.6 K/mm3 (4.5-10.0)
[2023-03-19 19:47] LABS: Fibrinogen 453 mg/dl (215-510)
[2023-03-19 19:48] LABS: INR 0.9; Partial Thromboplastin Time 26.7 SECONDS (22.3-36.8); Prothrombin Time 12.8 Seconds (11.1-14.7)
--- NOTE | 2023-03-19 19:59 | WPDHPUPDATE1 ---
History and Physical Update Update Date/Time: 03/19/23 19:59 History and Physical has been reviewed, including an updated exam of the patient. There are NO changes in the patient's condition. Risks, benefits, and alternatives have been discussed and questions answered. Patient agrees to proceed with procedure.
--- NOTE | 2023-03-19 20:13 | WPDANESEPPF ---
Anes - Initial Pre Proc Eval Procedure: Labor Epidural Date/Time: 03/19/23 20:13 Surgeon: Malik Martinez MD Pre Op Diagnosis: Labor pain Pre Op Diagnosis: Vaginal Bleeding Patient Data Age: 32 Gender: F Height: 1.68 m Weight: 102 kg Last Vital Signs Temp 36.8 C 03/19/23 18:00 Pulse 107 H 03/19/23 20:00 BP 130/83 03/19/23 20:00 O2 Del Method Room Air 03/19/23 17:56 Allergies Allergy/AdvReac Type Severity Reaction Status Date / Time dimenhydrinate AdvReac Other Verified 03/13/23 15:22 [From Dramamine] hydrocodone [From Vicodin] AdvReac Nausea and Verified 03/13/23 15:22 Vomiting Home Medications Medication Instructions Recorded Confirmed Type albuterol sulfate 90 mcg/actuation 1 - 2 inh inhalation Q4-6H PRN 06/29/22 03/13/23 Rx aerosol inhaler shortness of breath or wheezing #8.5 grams prenat.vits,lupe,upu-tqsg-ggihk 1 tablet PO DAILY 07/27/22 03/13/23 History aspirin 81 mg chewable tablet 81 mg PO DAILY 01/10/23 03/13/23 History escitalopram oxalate 10 mg tablet 20 mg PO DAILY 03/19/23 03/19/23 History (Lexapro) Laboratory Tests 03/19/23 03/19/23 17:54 19:10 WBC 5.3 K/mm3 5.6 K/mm3 (4.5-10.0) (4.5-10.0) RBC 3.86 L M/mm3 3.77 L M/mm3 (4.2-5.4) (4.2-5.4) Hgb 10.9 L g/dL 11.0 L g/dL (12.0-15.0) (12.0-15.0) Hct 33.7 L % 33.6 L % (37.0-47.0) (37.0-47.0) MCV 87.3 fl 89.1 fl (80-100) (80-100) MCH 28.2 pg 29.2 pg (26-34) (26-34) MCHC 32.3 g/dl 32.7 g/dl (32-36) (32-36) RDW 13.9 % 13.9 % (11.5-14.5) (11.5-14.5) Plt Count 211 k/mm3 193 k/mm3 (150-375) (150-375) MPV 9.7 fl 9.7 fl (7.4-10.4) (7.4-10.4) Immature Gran % (Auto) 0.2 % 0.4 % (0-0.5) (0-0.5) Neut % (Auto) 73.0 % 76.6 H % (45.5-73.1) (45.5-73.1) Lymph % (Auto) 15.6 L % 15.4 L % (18.3-44.2) (18.3-44.2) [place] % (Auto) 10.2 H % 6.7 % (2.6-8.5) (2.6-8.5) Eos % (Auto) 0.8 % 0.7 % (0-4.4) (0-4.4) Baso % (Auto) 0.2 % 0.2 % (0.2-1.2) (0.2-1.2) Lymph # (Auto) 0.83 L K/mm3 0.87 L K/mm3 (0.9-3.2) (0.9-3.2) [place] # (Auto) 0.5 K/mm3 0.4 K/mm3 (0.1-0.6) (0.1-0.6) Eos # (Auto) 0.0 K/mm3 0.0 K/mm3 (0-0.3) (0-0.3) Baso # (Auto) 0.0 K/mm3 0.0 K/mm3 (0.0-0.1) (0.0-0.1) Abs Immat Gran (auto) 0.01 K/mm3 0.02 K/mm3 (0.00-0.031) (0.00-0.031) Absolute Neuts (auto) 3.9 K/mm3 4.3 K/mm3 (1.3-6.7) (1.3-6.7) Absolute Nucleated RBC 0.0 K/mm3 0.0 K/mm3 (0.0-0.012) (0.0-0.012) Nucleated RBC % 0.0 % 0.0 % (0.0-0.2) (0.0-0.2) PT 12.8 Seconds (11.1-14.7) INR 0.9 APTT 26.7 SECONDS (22.3-36.8) Fibrinogen 453 mg/dl (215-510) RPR Pending HIV 1&2 Ab/P24 Ag 4thGn Negative (Negative) Blood Type O Positive Antibody Screen Negative Patient hx anesthesia problems: none Family hx anesthesia problems: none Results Review: All pre-operative results and documents have been reviewed as part of the pre-operative evaluation. [facility] Past Medical History Medical History 29 to 30 weeks gestation of Anxiety Asthma Atrial tachycardia, paroxysmal BMI 29.0-29.9,adult Currently Elevated liver enzymes Encounter to establish care History of severe pre-eclampsia Hypomagnesemia Migraine Obesity Palpitations PCOS (polycystic ovarian syndrome) Pre-eclampsia, Preeclampsia with first , along with severe leg edema labor Pulmonary edema Post- with 1st Screening for tuberculosis Sinus tachycardia Vaginal delivery Surgical History Surgical History H/O gastric sleeve History of orthopedic surgery Rt bunionectomy and rt shoulder surgery x2 Family History Family History (Reviewed 03/19/23 @ 20:14 by
--- NOTE | 2023-03-19 20:37 | WPDANESEPN ---
Anes - Epidural Procedure Note Date/Time: 03/19/23 20:37 Consent: I have discussed with the patient/family/POA, the placement of an epidural catheter and the use of epidural narcotic/local anesthetic for labor analgesia and/or postoperative pain management, including associated potential risks, benefits, complications and side effects. I have discussed alternative methods of labor analgesia and/or postoperative pain management. The patient/family/POA, understand(s) and wish(es) to proceed with epidural narcotic/local anesthetic for labor analgesia and/or postoperative pain management. Time-Out: A pre-procedural Time-Out was completed immediately before starting the procedure and confirmed: Patient Identification, Site, Procedure, Patient Position and the Availability of Requisite Equipment. Clinical Indications: Labor pain Epidural Insertion Note Patient position: sitting Skin prep: chlorhexidine and sterile drape Needle: 18g Tuohy-Schliff Catheter: 20g Unstyleted Technique: Loss of resistance. Level of insertion: L3/4 Catheter skin shani (cm): 11 Length in epidural space (cm): 6 Skin anesthesia: lidocaine 1% Test dose: 1.5% Lidocaine with 1:[id number] Epi, negative for subarachnoid Inj and negative for intravascular Inj Time of test dose: 20:26 Observations: tolerated well Complications: none
[2023-03-19] MEDS: SODIUM CHLORIDE 0.9% IV 300 ML 600 ML I-UTERINE (22:11)
--- NOTE | 2023-03-19 22:58 | PM.OBPRVD ---
OB - Delivery Note Procedure Delivery date: 03/19/23 Events: Polyhydramnios Intrapartal Events: Decelerations Delivery augmentation: Pitocin Delivery monitor: External FHT and Internal Uterine Route of delivery: Laceration Description: None Specimen: Yes (placenta) Quantitative Blood Loss (ml): 500 Anesthesia type: Epidural Disposition: Floor Baby Date of : 03/19/23 Time of : 22:28 Weeks of gestation at delivery: 38 (.1) Infant gender: Male Weight (pounds): 7 Weight (ounces): 2 presentation: vertex Placenta delivery description: Expressed Cord Vessel Description: 3 Vessels, Nuchal Cord (with a true knot), Loose and Delayed Cord Clamping score one minute: 8 score five minutes: 9 Narrative: Severe variable decelerations were noted. While intrauterine resuscitation was being performed with discontinuation of Pitocin, amniofusion, and position change, the patient endorsed feeling significant pressure. She was then found to be completely dilated. With good maternal effort she pushed for approximately 3 contractions and delivered the head over intact perineum. Nuchal cord was noted but delivered through. She easily delivered the infant's shoulders and body without complication. The was immediately placed skin to skin where the pediatric team stimulated him until cry was heard. On examination there was also noted to be a true knot. Delayed cord clamping was performed. The umbilical cord was doubly clamped and cut. A segment of the cord was collected for cord gases. The remaining cord blood was collected for typing. With Pitocin running and gentle downward traction on the cord, the placenta delivered without complications. Bimanual massage was performed and lower uterine segment atony was noted. She was examined and no lacerations were identified. Misoprostol 800 mcg was then placed rectally to prevent further atony. Sponge, lap, instrument, and needle counts were correct at the end the procedure. EBL 300cc was noted. Patient was then being cleaned when a large gush of blood was noted. She was once again examined and the cervix was ran to verify no cervical lacerations, which were not identified. Bimanual massage once again revealed lower uterine segment atony. It was then identified that the oxytocin infusion was not running properly. I continued bimanual massage until the uterus was found to be firm. Good hemostasis was then noted. Total EBL assessment was 500 cc. AM Delivery Billing Delivery Delivery: Delivery Charge
[2023-03-19] MEDS: OXYTOCIN 30 UNITS/NS 500 ML 30 UNITS/500 ML BAG 125 UNITS IV CONT (23:31)
[2023-03-20] VITALS (29 sets, daily range): BP systolic 84–130; BP diastolic 48–81; PULSE 63–206; RESP 16; TEMP 36.2–37.2; O2SAT 97–100
[2023-03-20] MEDS: miSOPROStol 200 MCG TABLET 800 MCG (00:35)
[2023-03-20] MEDS: ONDANSETRON INJ 4 MG/2 ML VIAL IV PUSH (00:36)
[2023-03-20] MEDS: WITCH HAZEL 40 PADS 1 PAD TOPICAL (01:32)
[2023-03-20] MEDS: BENZOCAINE 20% AER SPR (*SP) 56 GM CAN 1 SPRAY TOPICAL (01:32)
--- NOTE | 2023-03-20 02:43 | PC.NURSE ---
03/20/2023 at 0145 Patient transferred to post room #282 via wheelchair. Support person present. Oriented to unit, room, information board, rooming in, admission packet and security measures. Patient verbalizes understanding.
[2023-03-20 04:36] LABS: Hemoglobin 9.2 g/dL (12.0-15.0)
--- NOTE | 2023-03-20 07:38 | PM.OBPNVD ---
OB - PN: Subj Subjective Date/time seen: 03/20/23 07:38 Patient comments: no complaints, pain well controlled and tolerating diet Shannon feeding status: exclusively breast feeding Narrative: patient doing well this AM. No complaints. Pain is well controlled. She reports minimal bleeding. She is ambulating and voiding without difficulty. She is tolerating PO. She denies N/V, fever, chills. OB - PN: Obj Data Labs 03/20/23 04:00 Labs: Laboratory Results - last 24 hr 03/19/23 03/19/23 03/20/23 17:54 19:10 04:00 WBC 5.3 5.6 RBC 3.86 L 3.77 L Hgb 10.9 L 11.0 L 9.2 L Hct 33.7 L 33.6 L 29.0 L MCV 87.3 89.1 MCH 28.2 29.2 MCHC 32.3 32.7 RDW 13.9 13.9 Plt Count 211 193 MPV 9.7 9.7 Immature Gran % (Auto) 0.2 0.4 Neut % (Auto) 73.0 76.6 H Lymph % (Auto) 15.6 L 15.4 L [place] % (Auto) 10.2 H 6.7 Eos % (Auto) 0.8 0.7 Baso % (Auto) 0.2 0.2 Lymph # (Auto) 0.83 L 0.87 L [place] # (Auto) 0.5 0.4 Eos # (Auto) 0.0 0.0 Baso # (Auto) 0.0 0.0 Abs Immat Gran (auto) 0.01 0.02 Absolute Neuts (auto) 3.9 4.3 Absolute Nucleated RBC 0.0 0.0 Nucleated RBC % 0.0 0.0 PT 12.8 INR 0.9 APTT 26.7 Fibrinogen 453 HIV 1&2 Ab/P24 Ag 4thGn Negative Blood Type O Positive Antibody Screen Negative OB - PN A/P Plan day: 1 Plan: routine care Comments: patient doing well H/H 9., will continue iron supplementation afebrile, VSS pt requests infant circumcision today. Risks, benefits, alternatives discussed. Maternal consent obtained continue routine care Time Spent With Patient Time: Total time spent is greater than 50% in coordination of care (as documented) at patient's floor/unit and/or counseling patient: Time with patient: less than 15 minutes Review of Systems Review of Systems: All systems reviewed & are unremarkable except as noted in HPI and below Exam Const: General: comfortable and no acute distress Resp: Effort & Inspection: normal respiratory effort Cardio: Rate: regular rate GI: GI Palp: Yes Soft to palpation and No Tenderness to palpation present (GI) Auscultation: normal bowel sounds Other: fundus firm and below umbilicus. Psych: Affect: normal affect
--- NOTE | 2023-03-20 07:39 | PM.OBDSVD ---
DS: Admitting Diagnosis Discharge Date 03/21/23 Admitting Diagnosis intrauterine at term DS: Discharge Diagnosis Discharge Diagnosis (1) Supervision of high risk , unspecified, third trimester: Code(s): O09.93 - Supervision of high risk , unspecified, third trimester Status: Acute OB - DS: Summary OB Procedures : None OB Procedures Intrapartum: Spontaneous Vag Delivery OB Procedures: : None Status at Discharge Functional status at discharge: independent ambulation Overall status at discharge: patient is back to baseline Time Spent with Patient Time attestation: Total time spent providing and/or coordinating discharge services: Time spent: Less than 30 minutes Exam Const: General: comfortable and no acute distress Resp: Effort & Inspection: normal respiratory effort Auscultation: clear to auscultation bilaterally Cardio: Rate: regular rate GI: GI Palp: Yes Soft to palpation Auscultation: normal bowel sounds Other: Fundus firm below umbilicus Psych: Appearance: grossly normal Mental Status: mental status grossly normal Affect: normal affect DS: Data Data Completed and Pending Pending studies at discharge: Pending at discharge 03/19/23 22:33 Surgical [PTH] Routine Labs on day of discharge: Labs from last 24 hours 03/20/23 03/19/23 03/19/23 04:00 19:10 17:54 WBC 5.6 5.3 RBC 3.77 L 3.86 L Hgb 9.2 L 11.0 L 10.9 L Hct 29.0 L 33.6 L 33.7 L MCV 89.1 87.3 MCH 29.2 28.2 MCHC 32.7 32.3 RDW 13.9 13.9 Plt Count 193 211 MPV 9.7 9.7 Immature Gran % (Auto) 0.4 0.2 Neut % (Auto) 76.6 H 73.0 Lymph % (Auto) 15.4 L 15.6 L [place] % (Auto) 6.7 10.2 H Eos % (Auto) 0.7 0.8 Baso % (Auto) 0.2 0.2 Lymph # (Auto) 0.87 L 0.83 L [place] # (Auto) 0.4 0.5 Eos # (Auto) 0.0 0.0 Baso # (Auto) 0.0 0.0 Abs Immat Gran (auto) 0.02 0.01 Absolute Neuts (auto) 4.3 3.9 Absolute Nucleated RBC 0.0 0.0 Nucleated RBC % 0.0 0.0 PT 12.8 INR 0.9 APTT 26.7 Fibrinogen 453 RPR Pending HIV 1&2 Ab/P24 Ag 4thGn Negative Blood Type O Positive Antibody Screen Negative Discharge Plan Discharge Discharging Clinician: Malik Martinez Patient Disposition: Home, Self-Care Activity: as tolerated and pelvic rest Diet: regular Patient Instructions: Antibiotic Form, Vaginal Delivery (DC) Stand Alone Forms: General Discharge Information Follow-up/Referrals: Malik Martinez MD [Physician] - 4 Weeks Discharge Medications: New acetaminophen 500 mg tablet 500 mg PO Q6H PRN (Reason: pain) Qty: 30 0RF polysaccharide iron complex 150 mg iron Capsule 150 mg PO BIDWM Qty: 60 0RF ibuprofen 600 mg tablet 600 mg PO Q6H PRN (Reason: pain) Qty: 30 0RF Continued albuterol sulfate 90 mcg/actuation HFA aerosol inhaler 1 - 2 inh inhalation Q4-6H PRN (Reason: shortness of breath or wheezing) Qty: 8.5 11RF prenat.vits,lupe,qau-wwyt-lxmhz Tablet 1 tablet PO DAILY aspirin 81 mg tablet,chewable 81 mg PO DAILY escitalopram oxalate [Lexapro] 10 mg tablet 20 mg PO DAILY Date of admission: 03/19/23 16:36 Primary Care Provider: Lyric Nascimento Admitting Provider: Malik Martinez Attending physician on admission: Malik Martinez Condition: Stable
--- NOTE | 2023-03-20 07:55 | WPDANLDPN2 ---
Anes-Prog Note L&D Date/Time: 03/20/23 07:55 Comfortable throughout: labor and delivery Neuraxial method: epidural Epidural/Spinal procedure site: clean & non-tender Neuro status: Neuro function grossly intact. Cardiovascular status: normal Respiratory status: normal Airway patency: baseline Mental status: baseline Post-Op hydration status: normal Vital Signs: Last Vital Signs Temp 37.2 C 03/20/23 01:45 Pulse 63 03/20/23 01:45 Resp 16 03/20/23 01:45 BP 121/76 03/20/23 01:45 Pulse Ox 100 03/20/23 01:45 O2 Del Method Room Air 03/19/23 17:56 Pain score (VAS): 2 I/O: Intake & Output 03/19/23 03/19/23 03/20/23 15:59 23:59 07:59 Intake Total 1000 Output Total 625 Balance 1000 -625 Post-procedural complaints: none Patient feedback: Patient satisfied with anesthetic care.
[2023-03-20] MEDS: POLYSACCHARIDE IRON COMPLEX 150 MG CAPSULE PO ×2 (08:00→16:50)
[2023-03-20] MEDS: ACETAMINOPHEN 325 MG TABLET 650 MG PO (08:00)
[2023-03-20] MEDS: MULTIVIT/MIN/PREN/FOL AC/IRON TABLET 1 TAB PO (08:00)
[2023-03-20] MEDS: DOCUSATE SODIUM 100 MG CAPSULE PO ×2 (08:00→16:35)
[2023-03-20 08:31] LABS: Rapid Plasma Reagin Non-Reactive (NonReactive)
[2023-03-20] MEDS: ESCITALOPRAM OXALATE 10 MG TABLET 20 MG PO (09:00)
--- NOTE | 2023-03-20 13:37 | PC.NURSE ---
[id number] Introductions were made, then consulted with patient to assess needs related to . Mother led the conversation with her?plans to feed?her infant and the?experience so far. Reviewed milk production, protecting the milk supply, and hand expressing if not pumping or . Mother used a combination and formula for her other two children and she is confident with her plan. Resources provided for inpatient and outpatient services with the feeding sheet, mom/baby guide and name written on the white board. Mother voiced understanding of information and will call if there is a request for assistance. Reported to the primary RN.
[2023-03-20] MEDS: IBUPROFEN 600 MG TABLET PO (16:35)
[2023-03-21] MEDS: DOCUSATE SODIUM 100 MG CAPSULE PO (08:37)
[2023-03-21] MEDS: ESCITALOPRAM OXALATE 10 MG TABLET 20 MG PO (08:37)
[2023-03-21] MEDS: POLYSACCHARIDE IRON COMPLEX 150 MG CAPSULE PO (08:37)
[2023-03-21] MEDS: MULTIVIT/MIN/PREN/FOL AC/IRON TABLET 1 TAB PO (08:37)
[2023-03-21 08:55] VITALS: BP 123/74; PULSE 70; RESP 16; TEMP 36.6; O2SAT 100
--- NOTE | 2023-03-21 10:18 | PC.NURSE ---
Patient to view the discharge video Mother & Baby Care, The First Two Weeks online. Patient was given the opportunity and encouraged to ask questions. Patient verbalized understanding of information shared and has been given the mother/baby guide for home reference.
[2023-03-22 12:53] VITALS: BP 126/83; PULSE 75; RESP 18; TEMP 37.2; O2SAT 100
== END 2023-03-21 11:37 | disposition home or self-care (01) | DRG 807 ==
LOC: ANHLDR 18:09 → ANHOB2 03-20 02:27
PROVIDERS: Admitting Provider Obstetrics & Gynecology; PCP Nurse Practitioner Family; Visit Provider Student in an Organized Health Care Education/Training Program
DX: O67.9 Intrapartum hemorrhage, unspecified (principal); Z37.0 Single live birth; Z3A.38 38 weeks gestation of pregnancy; O40.3XX0 Polyhydramnios, third trimester, not applicable or unspecified; O69.1XX0 Labor and delivery complicated by cord around neck, with compression, not applicable or unspecified; O99.02 Anemia complicating childbirth; D64.9 Anemia, unspecified; O99.844 Bariatric surgery status complicating childbirth; O36.8330 Maternal care for abnormalities of the fetal heart rate or rhythm, third trimester, not applicable or unspecified; Z87.59 Personal history of other complications of pregnancy, childbirth and the puerperium
CPT/HCPCS: 36415; 84112; 85014; 85018; 85025; 85384; 85610; 85730; 86592; 86703; 86850; 86900; 86901; 88307; A9270; G0432; J2405; J2590; J2795; J7030; J7120

== ENCOUNTER 2025-01-05 07:41 | Outpatient (CLI) | payer OTHER, SELFPAY ==
[2025-01-05 08:40] LABS: Basophils Percent Auto 0.4 % (0.2-1.2); Eosinophils Absolute Auto 0.1 K/mm3 (0-0.3); Eosinophils Percent Auto 1.8 % (0-4.4); Hematocrit 34.3 % (37.0-47.0); Immature Granulocyte Absolute 0.01 K/mm3 (0.00-0.031); Immature Granulocyte Percent A 0.2 % (0-0.5); Lymphocytes Absolute Auto 1.36 K/mm3 (0.9-3.2); Lymphocytes Percent Auto 26.9 % (18.3-44.2); Mean Corpuscular HGB Conc 29.2 g/dl (32-36); Mean Corpuscular Hemoglobin 22.6 pg (26-34); Mean Corpuscular Volume 77.4 fl (80-100); Mean Platelet Volume 8.9 fl (7.4-10.4); Monocytes Absolute Auto 0.4 K/mm3 (0.1-0.6); Monocytes Percent Auto 8.7 % (2.6-8.5); Neutrophils Absolute Auto 3.1 K/mm3 (1.3-6.7); Platelet Count Result 292 k/mm3 (150-375); Red Blood Count 4.43 M/mm3 (4.2-5.4); Red Cell Distribution Width 17.1 % (11.5-14.5); White Blood Count 5.1 K/mm3 (4.5-10.0)
[2025-01-05 08:47] LABS: Add Urine Microscopic? YES; Appearance Urine Cloudy (Clear); Bacteria Urine 3+ /hpf; Bilirubin Urine Negative (Negative); Blood Urine Negative (Negative); Color Urine Dark Yellow (Yellow); Glucose Urine UA Negative (Negative); Ketones Urine Trace mg/dL (Negative); Leukocyte Esterase Ur 2+ LEU/UL (Negative); Nitrate Urine Negative (Negative); Protein Urine Trace mg/dL (Negative); Specific Grav Ur 1.028 (1.001-1.035); Squamous Epithelial Cell Urine Moderate /hpf (Few); WBC Urine 21-50 /hpf (0-3)
[2025-01-05 08:53] LABS: Alanine Aminotransferase 17 U/L (6-35); Albumin Level 4.4 g/dL (3.5-5.1); Alkaline Phosphatase 41 U/L (38-126); Anion Gap 9 mmol/L (4-12); Aspartate Amino Transferase 24 U/L (14-36); Bilirubin,Total 0.8 mg/dL (0.2-1.3); Blood Urea Nitrogen 12 mg/dL (7-17); Calcium 8.9 mg/dL (8.4-10.2); Carbon Dioxide 29 mmol/L (22-30); Chloride 103 mmol/L (98-107); Cholesterol 186 mg/dL (0-200); Estimated Glomerular Filt Rate > 60; Glucose 91 mg/dL (65-110); HDL Direct 62 mg/dL; Potassium 3.8 mmol/L (3.4-5.0); Sodium 141 mmol/L (137-145); Triglycerides 61 mg/dL (<150)
[2025-01-05 09:00] LABS: Iron 47 ug/dL (37-170)
[2025-01-05 09:03] LABS: LDL Cholesterol Direct 83 mg/dL
[2025-01-05 09:10] LABS: Anisocytosis 1+; Hypochromasia 1+; Ovalocytes 1+; Percent Iron Saturation 10 % (20-50); Platelet Estimate Adequate (Adequate); Schistocytes None Seen
[2025-01-05 09:33] LABS: Thyroid Stimulating Hormone Reflex 0.388 uIU/mL (0.465-4.68)
[2025-01-05 09:37] LABS: Ferritin 5.37 ng/mL (6.24-137)
[2025-01-05 10:05] LABS: Free T4 Free Thyroxine Reflex 1.45 ng/dL (0.78-2.19)
[2025-01-05 11:21] LABS: Total Triiodothyronine (T3) 1.81 NG/ML (0.97-1.69)
== END 2025-01-05 07:42 | disposition home or self-care (01) ==
PROVIDERS: Visit Provider Nurse Practitioner Family
DX: Z00.00 Encounter for general adult medical examination without abnormal findings (principal); Z13.6 Encounter for screening for cardiovascular disorders; Z13.29 Encounter for screening for other suspected endocrine disorder; E53.8 Deficiency of other specified B group vitamins; E13.10 Other specified diabetes mellitus with ketoacidosis without coma; D50.9 Iron deficiency anemia, unspecified; D21.6 Benign neoplasm of connective and other soft tissue of trunk, unspecified; D64.9 Anemia, unspecified; Z68.38 Body mass index [BMI] 38.0-38.9, adult
CPT/HCPCS: 36415; 80053; 80061; 81001; 82607; 82728; 83036; 83540; 83550; 84439; 84443; 84480; 85025

== ENCOUNTER 2025-01-22 12:49 | Outpatient (CLI) | payer OTHER, MEDICAID, SELFPAY ==
--- OUTSIDE RECORDS SUMMARY | 2025-01-22 12:46 | XMS_ITS | Data Portability ---
Author Organization [facility] Address [address] [place] [address] [place] [address] Care Team Providers Care Indoor Plant Technician Name Role Phone THERESA PERRY Primary Care Provider [phone] Assessment Encounter Date Assessment Date Assessment LastModified by Organization Details LastModified Time 10/12/2022 10/12/2022 Patient is ___weeks . Discussed plan. [email or web address] Not available 10/12/2022 17:12:48 01/03/2023 01/03/2023 Patient is _27__weeks . Discussed plan. [email or web address] Not available 01/03/2023 18:07:09 Plan of Treatment Reminders Order Date Submit Date Provider Last Modified By Organization Details Last Modified Time Details Appointments None recorded. Lab None recorded. Referral None recorded. Procedures None recorded. Surgeries None recorded. Imaging US, obstetric, nuchal translucenc y 2022 023 [facility], [address], [address], [place], [address], 19:47:06 Medication Orders ondansetron 4 mg disintegrat ing tablet 2022 023 [id number], [address], [place], [address], 18:09:18 Patient TargetsNo targets recorded. Patient InstructionsNo instructions recorded. Reason for Referral None Reported. Results Created Date Observation Date Name Description Value Unit Range Abnormal Flag Note LastModifiedBy Organization Detail LastModifiedTime 08/16/20 22 08/16/2022 IMAGE GUIDE D PAP AND HPV REGAR DLESS image guided Pap, HPV regardless of Pap result SEE RESULT S BELOW CASE REPOR T: Cytol ogy Gynec ologi louis Repor t Case: [id number] Autho cristine chowdhury Provi mojgan: Alison Powers MD Colle cted: 08/16 1621 Order ing Locat ion: [place] Patho logy Recei ev: 08/17 1047 First Scree n: Jessy Perry, CT Speci men: Yaz fernandez Pap - Image d, Cervi x STATE MENT OF ADEQU ACY: Satis facto ry for evalu ation Trans forma tion zone compo nent prese nt FINAL DIAGN OSIS: Negat tamera for Intra epith elial Lesio n or Jerod damon (NIL) . Elect stanton iraheta felicita d by Jessy Perry, CT on 08/22 at 11:54 AM ----- ----- ----- ----- ----- ----- ----- ----- ----- ----- ----- ----- ----- ----- ----- ----- ----- ---- HPV RESUL TS: HPV mRNA E6/E7 : No HPV mRNA Detec sherrell NOTE: This high risk HPV mRNA assay detec ts fourt een high- risk HPV types (16, 18, 31, 33, 35, 39, 45, 51, 52, 56, 58, 59, 66, 68) witho ut diffe renti ation . COMME NT: Note: This speci men was revie wed by a Cytot echno logis t and/o r Patho logis t (as indic ated in this repor t) after evalu ation using the Thinp rep Imagi ng Syste m. [facility] INFOR MATIO N: Menst rual Statu s: LMP (if appli cable ): Clini louis Histo ry/Pr eviou s Pap: Type of Neopl hilary (if appli cable ): Signi fican t Clini [facility] Findi ngs: Other Histo ry: Hormo sophia (if appli cable ): PAP EDUCA HERMELINDO L NOTE: The Pap Test is a scree jim test with an inher ent false negat tamera rate. Liqui d-bas ed sampl ing may decre ase, but will not elimi terry, false negat tamera resul ts. A negat tamera resul t does not precl ude the prese nce and/o r devel opmen t of disea se, since the prese nce of abnor mal cells in the sampl e depen ds on the locat ion of the lesio n and sampl ing techn ique. [place] nued regul ar scree jim is the best metho d of cance r preve ntion . If repor sherrell cytol ogic findi ng do not corre late with physi louis and/o r histo rical findi ngs, furth er inves tigat ion is recom gamaliel d, as clini chanel warra nted. Not Available [facility] (Lab) [address], [place], [address], 08/22/2022 12:56:56 08/16/20 22 08/16/2022 TRICH OMONA S VAGIN DENI (RRNA ) trichomonas vaginalis ribosomal RNA (rrna) Negati ve negati ve Not Available [facility] (Lab) [address], [place], [address], 08/22/2022 12:56:57 08/16/20 22 08/16/2022 CT/GC (MARISSA) , THINP REP VIAL chlamydia trachomatis, PCR Negati ve negati ve Not Available [facility] (Lab) [address], [place], [address], 08/22/2022 12:56:57 08/16/20 22 08/16/2022 CT/GC (MARISSA) , THINP REP VIAL neisseria gonorrhoeae, PCR Negati ve negati ve Not Available [facility] (Lab) [address], [place], [address], 08/22/2022 12:56:57 09/11/19 23 09/11/2022 CBC W/DIF F WBC 6.7 10'3/ uL 3.6-[address] [facility] (Lab) [address], [place], [address], 09/12/2022 12:05:34 09/11/19 23 09/11/2022 CBC W/DIF F RBC 3.78 10'6/ uL (based on docume nted legal sex) 4.10-5 [address] [facility] (Lab) [address], [place], [address], 09/12/2022 12:05:34 09/11/19 23 09/11/2022 CBC W/DIF F HGB 11.4 g/dL (based on docume nted legal sex) 11.9-1 [address] [facility] (Lab) [address], [place], [address], 09/12/2022 12:05:34 09/11/19 23 09/11/2022 CBC W/DIF F HCT 34.6 % (based on docume nted legal sex) 37.4-4 8[address] [facility] (Lab) [address], [place], [address], 09/12/2022 12:05:34 09/11/19 23 09/11/2022 CBC W/DIF F MCV 91.5 fL 82.0-[address] [facility] (Lab) [address], [place], [address], 09/12/2022 12:05:34 09/11/19 23 09/11/2022 CBC W/DIF F MCH 30.2 pg 27.0-[address] [facility] (Lab) [address], [place], [address], 09/12/2022 12:05:34 09/11/19 23 09/11/2022 CBC W/DIF F MCHC 32.9 g/dL 32.0-[address] [facility] (Lab) [address], [place], [address], 09/12/2022 12:05:34 09/11/19 23 09/11/2022 CBC W/DIF F RDW 12.7 % 11.0-[address] [facility] (Lab) [address], [place], [address], 09/12/2022 12:05:34 09/11/19 23 09/11/2022 CBC W/DIF F plt 259 10'3/ uL 150-[address] [facility] (Lab) [address], [place], [address], 09/12/2022 12:05:34 09/11/19 23 09/11/2022 CBC W/DIF F MPV 9.8 fL 9.8-[address] [facility] (Lab) [address], [place], [address], 09/12/2022 12:05:34 09/11/19 23 09/11/2022 CBC W/DIF F NRBC's 0.0 % [address] [facility] (Lab) [address], [place], [address], 09/12/2022 12:05:34 09/11/19 23 09/11/2022 CBC W/DIF F absolute NRBCs 0.0 10'3/ uL [address] [facility] (Lab) [address], [place], [address], 09/12/2022 12:05:34 09/11/19 23 09/11/2022 CBC W/DIF F neutrophils 71.8 % 37.0-[address] [facility] (Lab) [address], [place], [address], 09/12/2022 12:05:34 09/11/19 23 09/11/2022 CBC W/DIF F lymphocytes 20.7 % 16.0-[address] [facility] (Lab) [address], [place], [address], 09/12/2022 12:05:34 09/11/19 23 09/11/2022 CBC W/DIF F monocytes 6.0 % 4.0-[address] [facility] (Lab) [address], [place], [address], 09/12/2022 12:05:34 09/11/19 23 09/11/2022 CBC W/DIF F eosinophils 0.9 % 0.0-9. [address] [facility] (Lab) [address], [place], [address], 09/12/2022 12:05:34 09/11/19 23 09/11/2022 CBC W/DIF F basophils 0.3 % 0.0-2. [address] [facility] (Lab) [address], [place], [address], 09/12/2022 12:05:34 09/11/19 23 09/11/2022 CBC W/DIF F immature granulocytes 0.3 % no define d refere nce range Not Available [facility] (Lab) [address], [place], [address], 09/12/2022 12:05:34 09/11/19 23 09/11/2022 CBC W/DIF F absolute neutrophils 4.8 10'3/ uL 1.1-6. [address] [facility] (Lab) [address], [place], [address], 09/12/2022 12:05:34 09/11/19 23 09/11/2022 CBC W/DIF F absolute lymphocytes 1.4 10'3/ uL 0.7-3. [address] [facility] (Lab) [address], [place], [address], 09/12/2022 12:05:34 09/11/19 23 09/11/2022 CBC W/DIF F absolute monocytes 0.4 10'3/ uL 0.3-1. [address] [facility] (Lab) [address], [place], [address], 09/12/2022 12:05:34 09/11/19 23 09/11/2022 CBC W/DIF F absolute eosinophils 0.1 10'3/ uL 0.0-0. [address] [facility] (Lab) [address], [place], [address], 09/12/2022 12:05:34 09/11/19 23 09/11/2022 CBC W/DIF F absolute basophils 0.0 10'3/ uL 0.0-0. [address] [facility] (Lab) [address], [place], [address], 09/12/2022 12:05:34 09/11/19 23 09/11/2022 CBC W/DIF F absolute immature granulocytes 0.0 10'3/ uL 0.00-0 .10 2022 2:04 AM: P indic ates parti al resul ts on a panel have been relea sed. Addit ional resul ts will follo w. 2022 2:04 AM: This resul t has been final verif ied. No addit ional or mata ed resul ts are expec sherrell. Not Available [facility] (Lab) [address], [place], [address], 09/12/2022 12:05:34 09/11/19 23 09/11/2022 HEMOG LOBIN A1C hemoglobin A1C 5.1 % 0-5.6 The Ameri can [employer] [facility] [employer] i[employer] n recom mends that a prima ry goal of thera py gigi d be a HBA1C of < 7% and that physi cians shoul d reeva luate the treat ment regim en in patie nts with HBA1C value s consi stent ly > 8%. <5.7% Ema l 5.7 - 6.4% Incre ased risk for diabe faustino >=6.5 % Diagn ostic of diabe faustino <7.0% Goal of thera py >8.0% Actio sen allison Not Available [facility] (Lab) [address], [place], [address], 09/12/2022 12:05:35 09/11/19 23 09/11/2022 URIC ACID uric acid 3.4 mg/dL 2.3-6. [address] [facility] (Lab) [address], [place], [address], 09/12/2022 12:05:36 09/11/19 23 09/11/2022 CMP(C OMPRE HENSI VE METAB OLIC PANEL ) sodium 138 mmol/ L 133-[address] [facility] (Lab) [address], [place], [address], 09/12/2022 12:05:36 09/11/19 23 09/11/2022 CMP(C OMPRE HENSI VE METAB OLIC PANEL ) potassium 3.8 mmol/ L 3.5-5. [address] [facility] (Lab) [address], [place], [address], 09/12/2022 12:05:36 09/11/19 23 09/11/2022 CMP(C OMPRE HENSI VE METAB OLIC PANEL ) chloride 101 mmol/ L 98-[address] [facility] (Lab) [address], [place], [address], 09/12/2022 12:05:36 09/11/19 23 09/11/2022 CMP(C OMPRE HENSI VE METAB OLIC PANEL ) carbon dioxide 26 mmol/ L 21-[address] [facility] (Lab) [address], [place], [address], 09/12/2022 12:05:36 09/11/19 23 09/11/2022 CMP(C OMPRE HENSI VE METAB OLIC PANEL ) anion gap 11 mmol/ L 4-[address] [facility] (Lab) [address], [place], [address], 09/12/2022 12:05:36 09/11/19 23 09/11/2022 CMP(C OMPRE HENSI VE METAB OLIC PANEL ) blood urea nitrogen 11 mg/dL 7-25 Not Available [facility] (Lab) [address], [place], [address], 09/12/2022 12:05:36 09/11/19 23 09/11/2022 CMP(C OMPRE HENSI VE METAB OLIC PANEL ) creatinine 0.49 mg/dL 0.60-1 [address] [facility] (Lab) [address], [place], [address], 09/12/2022 12:05:36 09/11/19 23 09/11/2022 CMP(C OMPRE HENSI VE METAB OLIC PANEL ) egfrcr (CKD-epi 2020) >90 mL/mi n/1.7 3_m2 >=[address] [facility] (Lab) [address], [place], [address], 09/12/2022 12:05:36 09/11/19 23 09/11/2022 CMP(C OMPRE HENSI VE METAB OLIC PANEL ) calcium 9.0 mg/dL 8.3-[address] [facility] (Lab) [address], [place], [address], 09/12/2022 12:05:36 09/11/19 23 09/11/2022 CMP(C OMPRE HENSI VE METAB OLIC PANEL ) glucose 83 mg/dL 70-[address] [facility] (Lab) [address], [place], [address], 09/12/2022 12:05:36 09/11/19 23 09/11/2022 CMP(C OMPRE HENSI VE METAB OLIC PANEL ) protein, total 6.9 g/dL 6.4-8. [address] [facility] (Lab) [address], [place], [address], 09/12/2022 12:05:36 09/11/19 23 09/11/2022 CMP(C OMPRE HENSI VE METAB OLIC PANEL ) albumin 3.9 g/dL 3.5-5. [address] [facility] (Lab) [address], [place], [address], 09/12/2022 12:05:36 09/11/19 23 09/11/2022 CMP(C OMPRE HENSI VE METAB OLIC PANEL ) ALT 7 units /L 9-[address] [facility] (Lab) [address], [place], [address], 09/12/2022 12:05:36 09/11/19 23 09/11/2022 CMP(C OMPRE HENSI VE METAB OLIC PANEL ) alkaline phosphatase 26 units /L 34-[address] [facility] (Lab) [address], [place], [address], 09/12/2022 12:05:36 09/11/19 23 09/11/2022 CMP(C OMPRE HENSI VE METAB OLIC PANEL ) AST 10 units /L 13-[address] [facility] (Lab) [address] [place], [address], 09/12/2022 12:05:36 09/11/19 23 09/11/2022 CMP(C OMPRE HENSI VE METAB OLIC PANEL ) bilirubin, total 0.4 mg/dL 0.2-1. [address] [facility] (Lab) [address] [place], [address], 09/12/2022 12:05:36 09/11/19 23 09/11/2022 TSH, REFLE X FREE T4 TSH 0.42 uIU/m L 0.30-[address] [facility] (Lab) [address] [place], [address], 09/12/2022 12:05:37 09/11/19 23 09/11/2022 HEPAT ITIS C ANTIB NHUNG SCREE N, REFLE X TO CONFI RMATI ON hepatitis C antibody Non-re active non-re active Antib odies to HCV Not Detec sherrell, does not exclu de the possi bilit y of expos ure to HCV. Not Available [facility] (Lab) [address], [place], [address], 09/12/2022 12:05:37 09/11/19 23 09/11/2022 HEPAT ITIS B SURFA CE ANTIG EN hepatitis B surface antigen Non-re active non-re active This assay was perfo rmed using [employer] ratio n reage nts and test kits. Value s obtai tony with other assay metho ds or kits canno t be used inter mata eably . Not Available [facility] (Lab) [address], [place], [address], 09/12/2022 12:05:38 09/11/19 23 09/11/2022 HIV 1/2 ANTIG EN/AN TIBOD Y, REFLE X CONFI RMATI ON HIV antigen/anti body Nonrea ctive nonrea ctive HIV-1 antig en and HIV-1 /HIV- 2 antib odies were not detec sherrell. No labor atory evide nce of HIV infec tion. Not Available [facility] (Lab) [address], [place], [address], 09/12/2022 12:05:38 09/11/19 23 09/11/2022 RUBEL LA IGG ANTIB NHUNG, QUANT rubella antibodies, IgG Reacti ve reacti ve Not Available [facility] (Lab) [address], [place], [address], 09/12/2022 12:05:39 09/11/19 23 09/11/2022 RUBEL LA IGG ANTIB NHUNG, QUANT rubella antibodies, IgG quant 26.1 IU/mL >=10 Non-r eacti ve (Non- Immun e) <10 IU/mL React tamera (Immu ne) > or = 10 IU/mL Not Available [facility] (Lab) [address], [place], [address], 09/12/2022 12:05:39 09/11/19 23 09/11/2022 TYPE/ RH/SC REEN ABO/Rh type O POS Not Available [facility] (Lab) [address], [place], [address], 09/12/2022 12:05:39 09/11/19 23 09/11/2022 TYPE/ RH/SC REEN antibody screen NEG Not Available [facility] (Lab) [address], [place], [address], 09/12/2022 12:05:39 09/11/19 23 09/11/2022 TYPE/ RH/SC REEN exp date 2022 23:[address] [facility] (Lab) [address], [place], [address], 09/12/2022 12:05:39 09/11/19 23 09/11/2022 PROTE IN/CR EATIN INE RATIO , URINE creatinine, urine 178.9 mg/dL R-No refer ence range estab lishe d for this assay Not Available [facility] (Lab) [address], [place], [address], 09/12/2022 12:05:40 09/11/19 23 09/11/2022 PROTE IN/CR EATIN INE RATIO , URINE protein, urine 11 mg/dL R-No refer ence range estab lishe d for this assay Not Available [facility] (Lab) [address], [place], [address], 09/12/2022 12:05:40 09/11/19 23 09/11/2022 PROTE IN/CR EATIN INE RATIO , URINE protein/crea tinine ratio, urine 0.06 . No Refer ence Range avail able for Rando m Urine s. A prote in to creat inine ratio of >=0.1 9 is a good predi ctor of signi fican t prote inuri a. A level of <0.14 can rule out signi fican t prote inuri a. Not Available [facility] (Lab) [address], [place], [address], 09/12/2022 12:05:40 09/11/19 23 09/11/2022 RPR SCREE N/REF ERICA TITER /FTA RPR screen Nonrea ctive nonrea ctive Not Available [facility] (Lab) [address], [place], [address], 09/12/2022 12:05:40 09/11/19 23 09/11/2022 CULTU RE: URINE result report SEE RESULT S BELOW Test: Cultu re: Urine Speci men Sourc e: Urine Voide d Speci men Type: Urine Speci men Date: 2022 3:39 PM Resul t Date: 2022 6:57 AM Resul t Statu s: Final resul t Abnor mal: No Resul ting Lab: [facility] [address] [facility] [address] Tel: CULTU RE ----- ----- ----- --- Cultu re resul t (>=3 organ isms prese nt) indic ates possi ble conta minat ion. Repea t cultu re if sympt oms indic ate. Not Available [facility] (Lab) [address], [place], [address], 09/13/2022 08:01:08 09/11/1909/11/2022 drug scree n, urine Amphetamines : negati ve Not Available [facility] [address], [place], [address], 09/11/2022 15:16:06 09/11/19 23 09/11/2022 drug scree n, urine Cannabinoids : negati ve Not Available [facility] [address], [place], [address], 09/11/2022 15:16:06 09/11/19 23 09/11/2022 drug scree n, urine Opiates: negati ve Not Available [facility] [address], [place], [address], 09/11/2022 15:16:06 09/11/19 23 09/11/2022 drug scree n, urine Benzodiazepi sophia: negati ve Not Available [facility] [address], [place], [address], 09/11/2022 15:16:06 12/07/19 23 12/06/2022 GTT - GESTA HERMELINDO L SCREE N, ACOG OB glucose, 1 hour screen 70 mg/dL 70-139 Not Available [facility] (Lab) [address] [place], [address], 12/07/2022 03:36:20 12/07/19 23 12/06/2022 CBC W/DIF F WBC 5.0 10'3/ uL 3.6-[address] [facility] (Lab) [address] [place], [address], 12/07/2022 03:36:21 12/07/19 23 12/06/2022 CBC W/DIF F RBC 3.21 10'6/ uL (based on docume nted legal sex) 4.10-5 [address] [facility] (Lab) [address] [place], [address], 12/07/2022 03:36:21 12/07/19 23 12/06/2022 CBC W/DIF F HGB 9.1 g/dL (based on docume nted legal sex) 11.9-[address] [facility] (Lab) [address] [place], [address], 12/07/2022 03:36:21 12/07/19 23 12/06/2022 CBC W/DIF F HCT 29.7 % (based on docume nted legal sex) 37.4-4 [address] [facility] (Lab) [address], [place], [address], 12/07/2022 03:36:21 12/07/19 23 12/06/2022 CBC W/DIF F MCV 92.5 fL 82.0-[address] [facility] (Lab) [address], [place], [address], 12/07/2022 03:36:21 12/07/19 23 12/06/2022 CBC W/DIF F MCH 28.3 pg 27.0-[address] [facility] (Lab) [address], [place], [address], 12/07/2022 03:36:21 12/07/19 23 12/06/2022 CBC W/DIF F MCHC 30.6 g/dL 32.0-[address] [facility] (Lab) [address], [place], [address], 12/07/2022 03:36:21 12/07/19 23 12/06/2022 CBC W/DIF F RDW 13.7 % 11.0-[address] [facility] (Lab) [address], [place], [address], 12/07/2022 03:36:21 12/07/19 23 12/06/2022 CBC W/DIF F plt 226 10'3/ uL 150-[address] [facility] (Lab) [address], [place], [address], 12/07/2022 03:36:21 12/07/19 23 12/06/2022 CBC W/DIF F MPV 9.7 fL 9.8-12 [address] [facility] (Lab) [address], [place], [address], 12/07/2022 03:36:21 12/07/19 23 12/06/2022 CBC W/DIF F NRBC's 0.0 % [address] [facility] (Lab) [address], [place], [address], 12/07/2022 03:36:21 12/07/19 23 12/06/2022 CBC W/DIF F absolute NRBCs 0.0 10'3/ uL [address] [facility] (Lab) [address], [place], [address], 12/07/2022 03:36:21 12/07/19 23 12/06/2022 CBC W/DIF F neutrophils 70.4 % 37.0-[address] [facility] (Lab) [address], [place], [address], 12/07/2022 03:36:21 12/07/19 23 12/06/2022 CBC W/DIF F lymphocytes 19.6 % 16.0-[address] [facility] (Lab) [address], [place], [address], 12/07/2022 03:36:21 12/07/19 23 12/06/2022 CBC W/DIF F monocytes 8.2 % 4.0-[address] [facility] (Lab) [address], [place], [address], 12/07/2022 03:36:21 12/07/19 23 12/06/2022 CBC W/DIF F eosinophils 1.2 % 0.0-9. [address] [facility] (Lab) [address], [place], [address], 12/07/2022 03:36:21 12/07/19 23 12/06/2022 CBC W/DIF F basophils 0.2 % 0.0-2. [address] [facility] (Lab) [address], [place], [address], 12/07/2022 03:36:21 12/07/19 23 12/06/2022 CBC W/DIF F immature granulocytes 0.4 % no define d refere nce range Not Available [facility] (Lab) [address], [place], [address], 12/07/2022 03:36:21 12/07/19 23 12/06/2022 CBC W/DIF F absolute neutrophils 3.5 10'3/ uL 1.1-6. [address] [facility] ([facility]) [address], [place], [address], 12/07/2022 03:36:21 12/07/19 23 12/06/2022 CBC W/DIF F absolute lymphocytes 1.0 10'3/ uL 0.7-3. [address] [facility] ([facility]) [address], [place], [address], 12/07/2022 03:36:21 12/07/19 23 12/06/2022 CBC W/DIF F absolute monocytes 0.4 10'3/ uL 0.3-1. [address] [facility] ([facility]) [address], [place], [address], 12/07/2022 03:36:21 12/07/19 23 12/06/2022 CBC W/DIF F absolute eosinophils 0.1 10'3/ uL 0.0-0. [address] [facility] (Lab) [address], [place], [address], 12/07/2022 03:36:21 12/07/19 23 12/06/2022 CBC W/DIF F absolute basophils 0.0 10'3/ uL 0.0-0. [address] [facility] (Lab) [address] [place], [address], 12/07/2022 03:36:21 12/07/19 23 12/06/2022 CBC W/DIF F absolute immature granulocytes 0.0 10'3/ uL 0.00-0 .10 2022 2:23 AM: P indic ates parti al resul ts on a panel have been relea sed. Addit ional resul ts will follo w. 2022 2:23 AM: This resul t has been final verif ied. No addit ional or mata ed resul ts are expec sherrell. Not Available [facility] (Lab) [address], [place], [address], 12/07/2022 03:36:21 12/07/19 23 12/06/2022 TSH, REFLE X FREE T4 TSH 0.73 uIU/m L 0.30-[address] [facility] (Lab) [address], [place], [address], 12/07/2022 03:36:22 12/15/19 23 12/14/2022 CBC W/DIF F WBC 5.3 10'3/ uL 3.6-[address] [facility] (Lab) [address], [place], [address], 12/15/2022 03:22:56 12/15/19 23 12/14/2022 CBC W/DIF F RBC 3.19 10'6/ uL (based on docume nted legal sex) 4.10-5 [address] [facility] (Lab) [address], [place], [address], 12/15/2022 03:22:56 12/15/19 23 12/14/2022 CBC W/DIF F HGB 9.4 g/dL (based on docume nted legal sex) 11.9-[address] [facility] (Lab) [address], [place], [address], 12/15/2022 03:22:56 12/15/19 23 12/14/2022 CBC W/DIF F HCT 29.5 % (based on docume nted legal sex) 37.4-[address] [facility] (Lab) [address], [place], [address], 12/15/2022 03:22:56 12/15/19 23 12/14/2022 CBC W/DIF F MCV 92.5 fL 82.0-[address] [facility] (Lab) [address], [place], [address], 12/15/2022 03:22:56 12/15/19 23 12/14/2022 CBC W/DIF F MCH 29.5 pg 27.0-[address] [facility] (Lab) [address], [place], [address], 12/15/2022 03:22:56 12/15/19 23 12/14/2022 CBC W/DIF F MCHC 31.9 g/dL 32.0-[address] [facility] (Lab) [address], [place], [address], 12/15/2022 03:22:56 12/15/19 23 12/14/2022 CBC W/DIF F RDW 13.5 % 11.0-[address] [facility] (Lab) [address], [place], [address], 12/15/2022 03:22:56 12/15/19 23 12/14/2022 CBC W/DIF F plt 229 10'3/ uL 150-[address] [facility] (Lab) [address], [place], [address], 12/15/2022 03:22:56 12/15/19 23 12/14/2022 CBC W/DIF F MPV 9.9 fL 9.8-[address] [facility] (Lab) [address], [place], [address], 12/15/2022 03:22:56 12/15/19 23 12/14/2022 CBC W/DIF F NRBC's 0.0 % [address] [facility] (Lab) [address], [place], [address], 12/15/2022 03:22:56 12/15/19 23 12/14/2022 CBC W/DIF F absolute NRBCs 0.0 10'3/ uL [address] [facility] (Lab) [address], [place], [address], 12/15/2022 03:22:56 12/15/19 23 12/14/2022 CBC W/DIF F neutrophils 74.7 % 37.0-7 [address] [facility] (Lab) [address], [place], [address], 12/15/2022 03:22:56 12/15/19 23 12/14/2022 CBC W/DIF F lymphocytes 17.1 % 16.0-[address] [facility] (Lab) [address], [place], [address], 12/15/2022 03:22:56 12/15/19 23 12/14/2022 CBC W/DIF F monocytes 7.2 % 4.0-[address] [facility] (Lab) [address], [place], [address], 12/15/2022 03:22:56 12/15/19 23 12/14/2022 CBC W/DIF F eosinophils 0.6 % 0.0-9. [address] [facility] (Lab) [address], [place], [address], 12/15/2022 03:22:56 12/15/19 23 12/14/2022 CBC W/DIF F basophils 0.2 % 0.0-2. [address] [facility] (Lab) [address] , [place], [address], 12/15/2022 03:22:56 12/15/19 23 12/14/2022 CBC W/DIF F immature granulocytes 0.2 % no define d refere nce range Not Available [facility] (Lab) [address], [place], [address], 12/15/2022 03:22:56 12/15/19 23 12/14/2022 CBC W/DIF F absolute neutrophils 4.0 10'3/ uL 1.1-6. [address] [facility] (Lab) [address], [place], [address], 12/15/2022 03:22:56 12/15/19 23 12/14/2022 CBC W/DIF F absolute lymphocytes 0.9 10'3/ uL 0.7-3. [address] [facility] (Lab) [address], [place], [address], 12/15/2022 03:22:56 12/15/19 23 12/14/2022 CBC W/DIF F absolute monocytes 0.4 10'3/ uL 0.3-1. [address] [facility] (Lab) [address], [place], [address], 12/15/2022 03:22:56 12/15/19 23 12/14/2022 CBC W/DIF F absolute eosinophils 0.0 10'3/ uL 0.0-0. [address] [facility] (Lab) [address], [place], [address], 12/15/2022 03:22:56 12/15/19 23 12/14/2022 CBC W/DIF F absolute basophils 0.0 10'3/ uL 0.0-0. [address] [facility] (Lab) [address], [place], [address], 12/15/2022 03:22:56 12/15/19 23 12/14/2022 CBC W/DIF F absolute immature granulocytes 0.0 10'3/ uL 0.00-0 .10 2022 1:12 AM: P indic ates parti al resul ts on a panel have been relea sed. Addit ional resul ts will follo w. 2022 1:12 AM: This resul t has been final verif ied. No addit ional or mata ed resul ts are expec sherrell. Not Available [facility] (Lab) [address], [place], [address], 12/15/2022 03:22:56 12/15/19 23 12/14/2022 CMP(C OMPRE HENSI VE METAB OLIC PANEL ) sodium 139 mmol/ L 133-[address] [facility] (Lab) [address], [place], [address], 12/15/2022 03:22:57 12/15/19 23 12/14/2022 CMP(C OMPRE HENSI VE METAB OLIC PANEL ) potassium 3.7 mmol/ L 3.5-5. [address] [facility] (Lab) [address], [place], [address], 12/15/2022 03:22:57 12/15/19 23 12/14/2022 CMP(C OMPRE HENSI VE METAB OLIC PANEL ) chloride 106 mmol/ L 98-[address] [facility] (Lab) [address], [place], [address], 12/15/2022 03:22:57 12/15/19 23 12/14/2022 CMP(C OMPRE HENSI VE METAB OLIC PANEL ) carbon dioxide 25 mmol/ L 21-[address] [facility] (Lab) [address] [place], [address], 12/15/2022 03:22:57 12/15/19 23 12/14/2022 CMP(C OMPRE HENSI VE METAB OLIC PANEL ) anion gap 8 mmol/ L 4-[address] [facility] (Lab) [address] [place], [address], 12/15/2022 03:22:57 12/15/19 23 12/14/2022 CMP(C OMPRE HENSI VE METAB OLIC PANEL ) blood urea nitrogen 9 mg/dL 7-25 Not Available [facility] (Lab) [address], [place], [address], 12/15/2022 03:22:57 12/15/19 23 12/14/2022 CMP(C OMPRE HENSI VE METAB OLIC PANEL ) creatinine 0.54 mg/dL 0.60-1 [address] [facility] (Lab) [address], [place], [address], 12/15/2022 03:22:57 12/15/19 23 12/14/2022 CMP(C OMPRE HENSI VE METAB OLIC PANEL ) egfrcr (CKD-epi 2020) >90 mL/mi n/1.7 3_m2 >=[address] [facility] (Lab) [address], [place], [address], 12/15/2022 03:22:57 12/15/19 23 12/14/2022 CMP(C OMPRE HENSI VE METAB OLIC PANEL ) calcium 8.4 mg/dL 8.3-[address] [facility] (Lab) [address], [place], [address], 12/15/2022 03:22:57 12/15/19 23 12/14/2022 CMP(C OMPRE HENSI VE METAB OLIC PANEL ) glucose 111 mg/dL 70-[address] [facility] (Lab) [address], [place], [address], 12/15/2022 03:22:57 12/15/19 23 12/14/2022 CMP(C OMPRE HENSI VE METAB OLIC PANEL ) protein, total 6.2 g/dL 6.4-8. [address] [facility] (Lab) [address], [place], [address], 12/15/2022 03:22:57 12/15/19 23 12/14/2022 CMP(C OMPRE HENSI VE METAB OLIC PANEL ) albumin 3.4 g/dL 3.5-5. [address] [facility] (Lab) [address], [place], [address], 12/15/2022 03:22:57 12/15/19 23 12/14/2022 CMP(C OMPRE HENSI VE METAB OLIC PANEL ) ALT 7 units /L 9-[address] [facility] (Lab) [address], [place], [address], 12/15/2022 03:22:57 12/15/19 23 12/14/2022 CMP(C OMPRE HENSI VE METAB OLIC PANEL ) alkaline phosphatase 34 units /L 34-[address] [facility] (Lab) [address], [place], [address], 12/15/2022 03:22:57 12/15/19 23 12/14/2022 CMP(C OMPRE HENSI VE METAB OLIC PANEL ) AST 11 units /L 13-[address] [facility] (Lab) [address] [place], [address], 12/15/2022 03:22:57 12/15/19 23 12/14/2022 CMP(C OMPRE HENSI VE METAB OLIC PANEL ) bilirubin, total 0.4 mg/dL 0.2-1. [address] [facility] (Lab) [address] [place], [address], 12/15/2022 03:22:57 12/15/19 23 12/14/2022 VITAM IN B12 / FOLAT E PANEL vitamin B12 176 pg/mL 180-91 4 low Ema l Range : 180-9 14 pg/mL . Indet ermin ate Range : 145-1 80 pg/mL . Defic ient Range : <=145 pg/mL . Not Available [facility] (Lab) [address], [place], [address], 12/15/2022 03:22:57 12/15/19 23 12/14/2022 VITAM IN B12 / FOLAT E PANEL folate, serum 19.4 NG/mL 6.0-[address] [facility] (Lab) [address], [place], [address], 12/15/2022 03:22:57 12/15/19 23 12/14/2022 VITAM IN D, 25-OH (TOTA L D2/D3 ) vitamin D, 25-hydroxy, total 14.6 NG/mL 30.0-1 00.0 [address] [place] stive of Defic iency : <20 ng/mL Sugge stive of Insuf ficie ncy: 20-29 ng/mL Sugge stive of Suffi cienc y: 30-10 0 ng/mL Sugge stive of Toxic ity: >150 ng/mL Not Available [facility] (Lab) [address], [place], [address], 12/15/2022 03:22:58 12/15/19 23 12/14/2022 MACIE TIN / IRON / TRANS MACIE N / TIBC iron 39 ug/dL 40-[address] [facility] (Lab) [address] [place], [address], 12/15/2022 03:22:58 12/15/19 23 12/14/2022 MACIE TIN / IRON / TRANS MACIE N / TIBC transferrin 414 mg/dL 200-[address] [facility] (Lab) [address] [place], [address], 12/15/2022 03:22:58 12/15/19 23 12/14/2022 MACIE TIN / IRON / TRANS MACIE N / TIBC ferritin 4.1 NG/mL 8.0-25 [address] [facility] (Lab) [address] [place], [address], 12/15/2022 03:22:58 12/15/19 23 12/14/2022 MACIE TIN / IRON / TRANS MACIE N / TIBC TIBC 580 ug/dL 250-[address] [facility] (Lab) [address], [place], [address], 12/15/2022 03:22:58 12/15/19 23 12/14/2022 MACIE TIN / IRON / TRANS MACIE N / TIBC iron saturation 7 % 20-55 low Not Available [facility] (Lab) [address], [place], [address], 12/15/2022 03:22:58 08/16/20 22 08/16/2022 imagi ng/di agnos tic resul t No observ ation record ed. BENNIE Guerra [address], [place], [address], 08/18/2022 11:05:39 09/11/19 23 09/11/2022 US, obste tric, nucha l trans lucen cy No observ ation record ed. [email or web address] [address], [place], [address], 09/11/2022 18:29:43 09/11/19 23 09/11/2022 US, obste tric, nucha l trans lucen cy No observ ation record ed. BENNIEARIK Guerra [address], [place], [address], 09/12/2022 19:55:05 10/18/19 23 10/18/2022 US, obste tric, follo w-up No observ ation record ed. [email or web address] [facility] [address] [place], [address], 10/23/2022 11:07:08 10/18/19 23 10/18/2022 US, obste tric, follo w-up No observ ation record ed. [email or web address] [facility] [address], [address], 10/23/2022 11:08:08 11/18/19 23 11/17/2022 US, obste tric, follo w-up No observ ation record ed. [facility] [address], [address], 11/29/2022 19:13:38 11/18/19 23 11/17/2022 US, obste tric, follo w-up No observ ation record ed. [facility] [address], [address], 11/29/2022 19:13:26 11/18/19 23 11/17/2022 US, obste tric, follo w-up No observ ation record ed. [email or web address] [facility] [address], [address], 11/27/2022 10:38:29 12/19/19 23 12/18/2022 US, obste tric, follo w-up No observ ation record ed. [email or web address] [facility] [address], [address], 12/20/2022 14:52:02 12/19/19 23 12/18/2022 US, obste tric, follo w-up No observ ation record ed. [email or web address] [facility] [address], [address], 12/20/2022 17:08:20 12/19/1912/18/2022 US, obste tric, follo w-up No observ ation record ed. [facility] [address], [address], 12/19/2022 11:28:55 12/26/1912/18/2022 norman r monit or No observ ation record ed. [email or web address] [facility] [address], [place], [address], 12/28/2022 18:21:57 01/27/20 23 01/26/2023 US, obste tric, follo w-up No observ ation record ed. [email or web address] [facility] [address], [place], [address], 01/29/2023 15:38:48 01/27/20 23 01/26/2023 US, obste tric, follo w-up No observ ation record ed. [email or web address] [facility] [address] [place], [address], 01/29/2023 17:55:36 02/27/20 23 02/26/2023 US, obste tric, follo w-up No observ ation record ed. [email or web address] [facility] [address] [place], [address], 03/09/2023 14:10:21 Result Notes None recorded. Problems Name Problem SNOMED Code Status Onset Date Resolution Date Notes Provider Name and Address Organization Details Recorded Time Complica tion of pregnanc y, childbir th and/or puerperi [id number] Completed 201909/01/2020 Oth diseases and conditio ns compl preg/chl dbrth;Re corded Elsewher e: No Locat ion: [facility] S ource: [employer] nava: Sen Blum ce ID: 0001 Geovani [email or web address] Time: 01:00:00 PM Fabiana herrmann [place] [facility] 17:56:[address] Concept Completed 201809/01/2020 Maternal care for heredita ry disease in fetus, unsp;Rec orded Elsewher e: No Locat ion: [facility] S ource: [employer] nava: N Practi ce ID: 0001 Geovani lable Time: 10:45:00 AM Fabiana herrmann, [facility] 17:55:42 Disorder of biliary tract [id number] Completed 201909/01/2020 Liver and biliary tract disord in pregnanc y, third trimeste r;Record ed Elsewher e: No Locat ion: Daja sorto [facility] S ource: [employer] nava: N Practi ce ID: 0001 Geovani lable Time: 11:30:00 AM Fabiana herrmann, [facility] 17:55:26 Liver disorder in pregnanc y - not delivere d [id number] Completed 201909/01/2020 Liver and biliary tract disord in pregnanc y, third trimeste r;Record ed Elsewher e: No [facility] [employer] nava: N Practi ce ID: 0001 Geovani lable Time: 11:30:00 AM Fabiana herrmann, [facility] 1 17:55:49 Normal pregnanc y in multigra tyson [id number] 86506 Completed 201909/01/2020 Encounte r for supervis ion of other normal pregnanc y, 3rd trimeste r;Record ed Elsewher e: No [facility]: [employer] nava: N Practi ce ID: 0001 Geovani lable Time: 03:00:00 PM Fabiana herrmann, [facility] 17:55:53 Gestatio n period, 35 weeks [id number] Completed 201909/01/2020 35 weeks gestatio n of pregnanc y;Record ed Elsewher e: No Locat ion: Daja sorto [facility] S ource: [employer] nava: N Practi ce ID: 0001 Geovani lable Time: 01:00:00 PM Fabiana [place] montez [facility] 17:55:[address] Concept Completed 201909/01/2020 Matern care for abnlt fetl hrt rate or rhym, 3rd tri, unsp;Rec orded Elsewher e: No [facility] S ource: [employer]inder nava: N Practi ce ID: 0001 Geovani lable Time: 11:30:00 AM Fabiana herrmann, [facility] 17:56:15 Gestatio n period, 36 weeks [id number] Completed 201909/01/2020 36 weeks gestatio n of pregnanc y;Record ed Elsewher e: No Locat ion: [facility] S ource: [employer] nava: N Practi ce ID: 0001 Geovani lable Time: 11:30:00 AM Fabiana Benitez [facility], [facility] 17:55:[address] Concept Completed 201809/01/2020 Encntr for photographic intelligence officer exam (general ) (routine ) w/o abn findings ;Recorde d Elsewher e: No Locat ion: [facility] S ource: [employer] nava: N Practi ce ID: 0001 Geovani lable Time: 01:00:00 PM Fabiana herrmann [facility] 17:56:17 Gestatio n period, 33 weeks [id number] Completed 201909/01/2020 33 weeks gestatio n of pregnanc y;Record ed Elsewher e: No Locat ion: [facility] S ource: [employer] nava: N Practi ce ID: 0001 Geovani lable Time: 10:30:00 AM Fabiana herrmann [facility] 17:55:35 Lochia finding Completed 201909/01/2020 Encounte r for routine postpart um follow-u p;Record ed Elsewher e: No Locat ion: Daja sorto [facility] S ource: [employer]inder nava: N Practi ce ID: 0001 Geovani lable Time: 11:45:00 AM Fabiana herrmann, [facility] 17:55:51 Gestatio n period, 34 weeks [id number] Completed 201909/01/2020 34 weeks gestatio n of pregnanc y;Record ed Elsewher e: No Locat ion: Daja sorto [facility] S ource: [employer]inder nava: N Practi ce ID: 0001 Geovani lable Time: 01:45:00 PM Fabiana herrmann, [facility] 17:55:37 Gestatio n period, 30 weeks [id number] Completed 201909/01/2020 30 weeks gestatio n of pregnanc y;Record ed Elsewher e: No [facility]: [employer] C[employer] Grinder nava: N Practi ce ID: 0001 Geovani lable Time: 04:45:00 PM Fabiana herrmann, [facility] 17:55:33 Gestatio n period, 21 weeks [id number] Completed 201809/01/2020 21 weeks gestatio n of pregnanc y;Record ed Elsewher e: No Locat ion: [facility] S ource: E[employer] C[employer] Grinder nava: N Practi ce ID: 0001 Geovani lable Time: 10:45:00 AM Fabiana herrmann, [facility] 17:55:30 Gestatio n period, 19 weeks [id number] Completed 201809/01/2020 19 weeks gestatio n of pregnanc y;Record ed Elsewher e: No [facility]: [employer] C[employer] Grinder nava: N Practi ce ID: 0001 Geovani lable Time: 02:00:00 PM Fabiana herrmann, [facility] 17:55:29 Antenata l screenin g Completed 201809/01/2020 Encounte r for antenata l screenin g for nuchal transluc ency;Rec orded Elsewher e: No Locat ion: [facility] S ource: [employer] nava: N Yfnti ce ID: 0001 Geovani lable Time: 10:30:00 AM Fabiana herrmann, [facility] 17:55:23 Gestatio n period, 15 weeks [id number] Completed 201809/01/2020 15 weeks gestatio n of pregnanc y;Record ed Elsewher e: No Locat ion: [facility] S ource: [employer]inder nava: N Yfnti ce ID: 0001 Geovani lable Time: 12:30:00 PM Fabiana herrmann, [facility] 17:55:27 Antenata l screenin g for malforma tion Completed 201809/01/2020 Encounte r for antenata l screenin g for malforma tions;Re corded Elsewher e: No Locat ion: [facility] S ource: [employer]inder nava: N Kulwant ce ID: 0001 Geovani lable Time: 02:00:00 PM Fabiana herrmann, [facility] 17:55:24 Pregnanc y detectio n examinat ion Completed 201809/01/2020 Encounte r for pregnanc y test, result positive ;Recorde d Elsewher e: No Locat ion: [facility] S ource: [employer]inder nava: N Yfnti ce ID: 0001 Geovani lable Time: 01:00:00 PM Fabiana herrmann [facility] 17:56:10 Gestatio n period, 24 weeks [id number] Completed 201809/01/2020 24 weeks gestatio n of pregnanc y;Record ed Elsewher e: No Locat ion: [facility] S ource: E[employer] Tool And C[employer] Grinder nava: N Practi ce ID: 0001 Geovani lable Time: 04:45:00 PM Fabaina herrmann, [facility] 17:55:31 Gestatio n period, 32 weeks [id number] Completed 201909/01/2020 32 weeks gestatio n of pregnanc y;Record ed Elsewher e: No Locat ion: Daja sorto [facility] S ource: E[employer] Tool [employer] C[employer] Grinder nava: N Practi ce ID: 0001 Geovani lable Time: 03:00:00 PM Fabiana herrmann, [facility] 17:55:34 Severe obesity complica ting pregnanc y [id number] Completed 201909/01/2020 Obesity complica ting pregnanc y, unspecif ied trimeste r;Record ed Elsewher e: No Locat ion: [facility] S ource: E[employer] Tool And C[employer] Grinder nava: N Practi ce ID: 0001 Geovani lable Time: 04:45:00 PM Fabiana Benitez montez, [facility] 17:56:12 Hypomagn esemia 823267110 Completed 201809/01/2020 Hypomagn esemia;P ractice ID: 0001 Fabiana Benitez montez, [facility] 17:55:46 Supraven tricular tachycar yobany [id number] Completed 201809/01/2020 Supraven tricular tachycar yobany;Prac conchita ID: 0001 Fabiana Emmanuel montez, [facility] 17:56:18 Palpitat ions [id number] Completed 201809/01/2020 Palpitat ions;Pra ctice ID: 0001 Fabiana [place] montez, [facility] 17:55:54 Lacerati on of female perineum Completed 201909/01/2020 First degree perineal lacerati on during delivery ;Practic e ID: 0001 Fabiana Benitez montez, [facility] 17:55:47 Single live from singleto n pregnanc y [id number] Completed 201909/01/2020 Single live ;Pr actice ID: 0001 Fabiana Benitez [facility], [facility] 17:56:14 Gestatio n period, 37 weeks [id number] Completed 201909/01/2020 37 weeks gestatio n of pregnanc y;Practi ce ID: 0001 Fabiana Benitez [facility], [facility] 17:55:40 Pre-ecla mpsia [id number] Completed 201909/01/2020 Unspecif ied pre-ecla mpsia, complica ting the puerperi um;Pract ice ID: 0001 Fabiana Benitez [facility], [facility] 17:55:56 Past pregnanc y history of gestatio nal trophobl astic disease 461884135 Completed 201909/01/2020 Personal history of comp of preg, chldbrth and the puerp;Pr actice ID: 0001 Fabianamireya Benitez [facility], [facility] 17:55:44 Past pregnanc y history of pre-ecla mpsia [id number] 22604 Active 2021 LD ASA 162 mg/day; with pulmonar y edema x2 Johana chase [facility], [facility] 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 2 13:18:17 Anxiety 00482627 Active 2021 Alison Dai MD [address], [place], [address], [facility] 2 13:18:39 Pregnanc y 94309385 Completed 202203/02/2023 Johana chase null, [facility] 3 13:16:49 Vertebra l abnormal ities, anal atresia, cardiac abnormal ities, tracheo- esophage al fistula, renal anomalie s, limb defects syndrome 119193408 Active with this- has seen genetics , to get echo - MFM rec no risk to fetus Johana chase [facility], [facility] 3 13:16:45 Anxiety in pregnanc y [id number] Active increase d lexapro to 20, not yet improvin g Johana chase null, [facility] 3 13:16:44 History of sleeve gastrect blaise [id number] Active MFM rec jelly madrid test instead of liquid, to see natalie zhu Sep Johana chase [facility], [facility] 3 13:16:45 Past pregnanc y history of pre-ecla mpsia [id number] Completed 2021 LD ASA 162 mg/day; with pulmonar y edema x2 Johana chase null, [facility] 3 13:16:44 Vertebra l abnormal ities, anal atresia, cardiac abnormal ities, tracheo- esophage al fistula, renal anomalie s, limb defects syndrome [id number] Completed with this- has seen genetics , to get echo - MFM rec no risk to fetus Johana chase null, [facility] 3 13:16:45 Anxiety in pregnanc y [id number] Completed increase d lexapro to 20, not yet improvin g [facility] 13:16:44 History of sleeve gastrect blaise [id number] Completed MFM rec jelly madrid test instead of liquid, to see natalie [facility] Fe Johana chase [facility] 3 13:16:45 Asthma [id number] Completed quiscent Johana [facility] 3 13:16:45 Anemia [id number] Completed 2022 1 tab slowfe bid- IV infusion referral faxed 12/14 Johana chase [facility] 3 13:16:44 Hypogly emia [id number] Completed borderli ne - precauti ons given Johana [facility] 3 13:16:45 Vitamin B12 level below referenc e range [id number] Completed B12 daily Johana [facility] 3 13:16:44 Vitamin D deficien cy 00607963 Completed 1,000-2, 000 IUs daily Johana [facility] 3 13:16:44 Problem Notes None recorded. Procedures Surgical History Date Name Laterality Status Provider Name and Address Organization Details Recorded Time 1 Bariatric Surgery completed Jennifer Leon [facility] 11/07/2022 19:04:13 1 Date of Last Pap Smear completed Fabiana Benitez [facility] 09/01/2020 17:57:00 3 procedure on foot completed Jennifer [facility] 11/07/2022 19:05:05 2 Shoulder joint surgery completed [facility] 11/07/2022 19:04:43 1 Shoulder joint surgery completed [facility] 11/07/2022 19:04:34 Imaging Results None recorded. Procedure Notes None recorded. Medical Equipment None Reported. Allergies Allergen ID Allergen Name Allergen Category Reaction Reaction Severity Criticality Documentation Date Start Date Code Code System Note Provider Name and Address Organization Details Recorded Time 2866 acetamino phen medicatio n Not available Not available Not available 07/28/2020 161 RxNorm Fabiana herrmann [facility] 17:54:59 2867 dimenhydr inate medicatio n Not available Not available Not available 07/28/2020 3444 RxNorm Fabiana Benitez [facility] 17:54:57 2868 hydrocodo ne Not available Not available Not available Not available 07/28/2020 5489 RxNorm Fabiana herrmann [facility] 17:54:56 Medications Name Sig Start Date Stop Date Status Note LastModified by Organization Details LastModified Time amoxicill in 500 mg capsule TAKE 1 CAPSULE BY MOUTH EVERY 6 HOURS 01/03 completed Not Available Not Available Not Available terconazo le 0.8 % vaginal cream insert 1 applicat orful by vaginal route every day at bedtime 10/23 completed Prescrib ed Elsewher e: No Locat ion: Daja sorto [facility] M odify By: bjorn todd DateTime : 08/01/20 19 09:24:00 AM Not Available Not Available Not Available omeprazol e 40 mg capsule,d elayed release TAKE 1 CAPSULE BY MOUTH EVERY DAY BEFORE BREAKFAS T FOR GERD 08/16 completed Not Available Not Available Not Available tramadol 50 mg tablet TAKE 1 TABLET BY MOUTH EVERY 4 TO 6 HOURS NEEDED FOR PAIN 09/27 completed Not Available Not Available Not Available Zofran 4 mg tablet take 1 tablet by oral route 4 times every day 10/23 completed Prescrib mk Odom e: Yes Loca tion: Gabbyjohn macario [facility] Brendon amaral By: [email or web address] Encounte r DateTime : 04/23/20 01:00:00 PM Not Available Not Available Not Available ursodiol 300 mg capsule TAKE 1 CAPSULE TWICE A DAY X 90 DAYS.DON T START UNTIL 7 DAYS POST OP LAPROSCO PIC SLEEVE GASTRECT BLAISE 08/16 completed Not Available Not Available Not Available Transderm -Scop 1 mg over 3 days transderm al patch APPLY 1 PATCH TO SKIN PRE OP FOR 1 DOSE, PLACE 1 PATCH BEHIND EAR NIGHT BEFORE SURGERY 04/14 completed Not Available Not Available Not Available albuterol sulfate HFA 90 mcg/actua tion aerosol inhaler INHALE 1-2 PUFFS BY MOUTH EVERY 4-6 HOURS NEEDED FOR SHORTNES S OF BREATH/W HEEZING active Not Available Not Available No t Available ondansetr on 4 mg disintegr ating tablet PLACE 1 TABLET BY TRANSLIN GUAL ROUTE EVERY 8 HOURS active Not Available Not Available No t Available sertralin e 50 mg tablet TAKE 1 TABLET BY MOUTH EVERY DAY 08/16 completed Not Available Not Available Not Available oxycodone 5 mg tablet TAKE 1 TO 2 TABS BY MOUTH EVERY 4 HOURS FOR PAIN. MAX OF 6 TABS IN 24HRS. 04/14 completed Not Available Not Available Not Available escitalop guido 10 mg tablet TAKE 1 TABLET BY MOUTH EVERY DAY 08/16 completed Not Available Not Available Not Available escitalop guido 20 mg tablet TAKE 1 TABLET BY MOUTH EVERY DAY active Not Available Not Available No t Available bupropion HCl XL 300 mg 24 hr tablet, extended release TAKE 1 TABLET BY MOUTH EVERY DAY IN THE MORNING 08/16 completed Not Available Not Available Not Available bupropion HCl XL 150 mg 24 hr tablet, extended release TAKE 1 TABLET BY MOUTH EVERY DAY IN THE MORNING 08/16 completed Not Available Not Available Not Available Pain Relief Extra Strength (acetamin ophen) 500 mg tablet TAKE 2 TABLETS BY MOUTH EVERY 6 HOURS FOR BASE PAIN (NOT BREAKTHR OUGH PAIN) 04/14 completed Not Available Not Available Not Available Lo Loestrin Fe 1 mg-10 mcg (24)/10 mcg (2) tablet TAKE 1 TABLET BY MOUTH EVERY DAY 04/14 completed Not Available Not Available Not Available Readbug 1.5 billion cell capsule TAKE 1 (ONE) CAPSULE BY MOUTH ONCE DAILY 04/14 completed Not Available Not Available Not Available Vitals Date Recorded Body height Body mass index (BMI) Body weight Systolic blood pressure Diastolic blood pressure Provider Name and Address Organization Details Last Updated DateTime 09/11/2022 170.18 cm 30.2 kg/m2 98001.32 741 g 100 mm[Hg] 67 mm[Hg] [facility] 3 15:10:56 Date Recorded Body height Body mass index (BMI) Body weight Systolic blood pressure Diastolic blood pressure Provider Name and Address Organization Details Last Updated DateTime 10/12/2022 170.18 cm 31 kg/m2 51586.28 926 g 108 mm[Hg] 69 mm[Hg] [facility] 3 17:12:55 Date Recorded Body height Body mass index (BMI) Body weight Systolic blood pressure Diastolic blood pressure Provider Name and Address Organization Details Last Updated DateTime 11/06/2022 170.18 cm 32.3 kg/m2 04337.02 822 g 95 mm[Hg] 61 mm[Hg] Jennifer Leon [facility] 3 15:14:37 Date Recorded Body height Body mass index (BMI) Body weight Systolic blood pressure Diastolic blood pressure Provider Name and Address Organization Details Last Updated DateTime 12/04/2022 170.18 cm 32.4 kg/m2 99038.62 059 g 99 mm[Hg] 61 mm[Hg] Jennifer Leon [facility] 3 14:35:02 Date Recorded Body height Body mass index (BMI) Body weight Systolic blood pressure Diastolic blood pressure Provider Name and Address Organization Details Last Updated DateTime 01/03/2023 170.18 cm 32.7 kg/m2 32698.80 533 g 97 mm[Hg] 60 mm[Hg] Jennifer Leon [facility] 17:52:15 Social History Question Answer Notes LastModified by Organizat ion Details LastModified Time Tobacco Smoking Status Never Smoker Jennifer Edward herrmann, [facility] 01/03/2023 17:52:29 Do You Have An Advance Directive? No [email or web address] Information n ot available 04/14/2021 If You Are , What Was Your Level Of Alcohol Consumption Prior To ? Occasional [email or web address] Information not available 01/03/2023 How Many Years Have You Consumed Alcohol? 10 Information not available 04/14/2021 Are You Blind Or Do You Have Difficulty Seeing? No [email or web address] Information n ot available 04/14/2021 What Is Your Level Of Caffeine Consumption? Occasional [email or web address] Information not available 04/14/2021 How Much Tobacco Do You Chew? None [email or web address] Information not available 04/14/2021 In The 14 Days Before Symptom Onset, Have You Had Close Contact With A Laboratory-confirm ed COVID-19 While That Case Was Ill? No [email or web address] Information n ot available 04/14/2021 In The 14 Days Before Symptom Onset, Have You Had Close Contact With A Person Who Is Under Investigation For COVID-19 While That Person Was Ill? No [email or web address] Information not available 04/14/2021 Have You Been To An Area Known To Be High Risk For COVID-19? No Information not available 04/14/2021 Are You Deaf Or Do You Have Serious Difficulty Hearing? No [email or web address] Information not available 04/14/2021 What Type Of Diet Are You Following? SPECIFIC [email or web address] Information n ot available 04/14/2021 What Is The Highest Grade Or Level Of School You Have Completed Or The Highest Degree You Have Received? [id number] [email or web address] Information not available 04/14/2021 Are There Any Guns Present In Your Home? Yes [email or web address] Information not available 04/14/2021 Do You Use Protection During Sex? Usually [email or web address] Information not available 01/03/2023 Do You Use Your Seat Belt Or Car Seat Routinely? Yes [email or web address] Information not available 04/14/2021 Do You Have Smoke And Carbon Monoxide Detectors In Your Home? Yes [email or web address] Information not available 04/14/2021 How Much Tobacco Do You Smoke? No Information not available 04/14/2021 Do You Use Sunscreen Routinely? Yes [email or web address] Information not available 04/14/2021 Have You Used IV Drugs? No [email or web address] Information not available 04/14/2021 Sex: Unknown Functional Status Question Answer Note LastModified by Organizat ion Details LastModified Time Do you use any illicit or recreational drugs? No [email or web address] Information not available 04/14/2021 What is your level of alcohol consumption? None [email or web address] Information not available 01/03/2023 Are you able to walk? 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 Moderate [email or web address] Information not available 04/14/2021 Mental Status Question Answer Note LastModified by Organization D etails LastModified Time Do you feel stressed (tense, restless, nervous, or anxious, or unable to sleep at night)? [id number] [email or web address] Information not available 01/03/2023 Family History Relationship Description Onset Age of this Age Resolved Age Notes LastModified by Organization Details LastModified Time Father Disorder of thyroid gland Not available 2020 15:31:06 Maternal Grandmother Disorder of thyroid gland [email or web address] Not available 2020 15:31:10 Mother Disorder of thyroid gland [email or web address] Not available 2020 15:31:13 Sister Seizure disorder [email or web address] Not available 2022 14:55:31 Medical History Condition Response Allergies (Food, seasonal, environmental ) Y Other N Breast Cancer N Drug/Latex Allergies/Reactions N Blood Transfusion N Dermatologic Disorders N Lung Disease N Defects or Inherited Disease N Breast Problem N Gestational Diabetes N Hematologic disorders N Anesthesia Complications N History of STI N Deep Vein Thrombosis N Polycystic ovary syndrome Y Anxiety Disorder Y Autoimmune disease N Arthritis N Infertility N Polyps N Acid Reflux (GERD) N History of abnormal pap N Cancer N Stroke N Varicosities N Neurologic/Epilepsy N Endometriosis N High Cholesterol N Headaches N Fibromyalgia N Kidney Disease N Heart Problems N Kidney or Bladder Problems N Thyroid Problems N GI Problems Y Eating Disorder N Anemia N Art (IVF or FET) N Psychiatric Illness N Ovarian Cancer N Diabetes N Pulmonary (TB, Asthma) N Hepatitis/Liver Disease N No Past Medical History N Eczema N Urinary Tract Infection N Abuse/Domestic Violence N Asthma Y Trauma/Violence N Depression/ depression Y Heart Disease N Pre-Eclampsia N Hypertension Y Osteoporosis N Thrombophilias N Gynecological History Statement/Question Response Flow Moderate Date of LMP 06/25/2022 On BCP's at Conception? N N Was last menstrual period normal Y STIs/STDs N HPV Vaccine Y Duration of Flow (days) 5 Current Control Method Age at First Child 28 Frequency of Cycle (Q days) 30 Sexually Active? Y Age of first menstrual cycle 13 Date of Last Pap Smear 09/02/2020 Sexual Problems? N LMP Approximate N Obstetrics History GPAL:G 3 P 2 0 0 2 Type Value Full Term 2 Living 2 Total 3 Past Encounters Encounter ID Performer Location Encounter Start Date Encounter Closed Date Diagnosis/Indication Diagnosis SNOMED-CT Code Diagnosis ICD10 Code Diagnosis Note [id number] Guerline Matthews CNM [facility] [address] [address] 09/02/2020 10:49:56 09/03/2020 12:35:04 Gynecologic examination 52548610 Z01.419 Take Calcium with Vitamin D 1200mg daily if not receiving in daily diet. It is strongly advised to have an annual flu shot and up can obtain at most pharmacies . If you have not had a TDap shot in the last 10 years you should obtain one as well. Discussed with patient & provided with informatio n regarding Gardisil vaccine to prevent the 4 strains for HPV that cause cervical cancer if under age 26. Encourage safe sexual practices, to use condoms and limit partners if not already in a monogamous relationsh ip. Do monthly self breast exams. Have mammogram yearly or every other year depending on family history. BRCA testing is now available for patients with strong genetic history of female cancer. If interested contact the office. Engage in daily exercise of low impact aerobic exercise 45-60 minutes 4-5 times weekly. Avoid tobacco and illicit drugs as well as using moderation with alcohol intake less than 1-2 8 oz beverages daily. This lifestyle behavior pattern will lead to less health conditions and longer life span. If BMI greater than 25 weight watchers or dietary consult advised. Patient received above instructio ns, and questions have been answered. If you have any questions please call or respond to this email. Patient was made aware of the patient portal and may obtain a paper copy of today's plan if desired. Mixed anxi ety and depressive disorder 749236328 F41.8 EPDS 15. No thoughts of harming herself or others. Discussed options and pt would like to start zoloft. Risks and benefits discussed. Precaution s given. I have also encouraged magda cross RTC in 2 weeks. Sooner if any problems. [id number] Guerline Matthews CNM [facility] [address],[place] [address] 09/30/2020 11:03:08 09/30/2020 11:56:03 Mixed anxiety and depressive disorder 590489240 F41.8 Doing much better. Plan to return for annual. If any worsening of symptoms or room for improvemen t she will come in to discuss further. [id number] Guerline Matthews CNM [address] [address] 04/14/2021 15:10:15 04/22/2021 15:14:21 Mixed anxiety and depressive disorder 506517668 F41.8 Discussed medication options. Pt would like to switch to wellbutrin . Discussed weaning off of zoloft prior to starting wellbutrin . Pt verbalized understand ing. Will return 3-4 weeks after starting wellbutrin or sooner if any problems or concerns. Pt verbalized understand ing. [id number] Guerline Matthews CNM [address] [address] 05/23/2021 14:50:27 05/23/2021 15:44:41 Mixed anxiety and depressive disorder 900523749 F41.8 Doing well. Still feeling anxious but libido has improved. Plan to increase to 300mg and RTC in 2 weeks. May need to consider med specifical ly geared towards anxiety. [id number] Guerline Matthews CNM [address] [address] 06/13/2021 14:08:44 06/13/2021 14:48:56 Mixed anxiety and depressive disorder 755674475 F41.8 Doing much better with increased dose. Will send out refills. Plan to return for wwe. Sooner if any problems or concerns. [id number] Alison Dai MD [facility] [address],[place] [address] 08/16/2022 11:49:47 08/16/2022 18:44:15 [id number] Alison Dai MD [facility] [address],[place] [address] 08/16/2022 11:50:14 08/16/2022 14:10:47 test positive 904106149 Z32.01 Past pregn lyndsey history of pre-eclampsia 6116898182 24500 Z87.59 History of sleeve gastrectomy 6713230700 23990 Z90.3 Venereal d isease screening 185438485 Z11.3 Anxiety 71770555 F41.9 [id number] Alison Dai MD [facility] [address],[place] [address] 09/11/2022 14:24:04 09/11/2022 15:19:19 screening 223221656 Z36.82 [id number] Alison Dai MD [facility] [address],[place] [address] 09/11/2022 14:25:33 09/12/2022 16:12:56 Routine care 349825764 Z34.91 Anxiety in 065 2431367 9109 F41.9 Past pregn lyndsey history of pre-eclampsia 7540590857 29597 Z87.59 History of sleeve gastrectomy 7635028041 25484 Z90.3 [id number] Guerline Matthews CNM [facility] [address] [place] [address] 10/12/2022 17:09:20 10/13/2022 15:52:18 [id number] Guerline Matthews CNM [facility] [address] [place] [address] 11/06/2022 14:55:17 11/07/2022 17:32:23 Routine care 400319099 Z34.92 [id number] Guerline Matthews [facility] [address] [address] 12/04/2022 14:03:42 12/05/2022 17:10:33 Routine care 254071621 Z34.92 [id number] Vanda Gomez [facility] [address] [address] 01/03/2023 16:54:48 01/04/2023 10:57:06 Routine care 525346402 Z34.92 Nausea and vomiting 1693 1999 R11.2 Health Concerns Section Related Observation LastModified by Organization Detai ls LastModified Time None Recorded Concern Status LastModified by Organization Details LastModified Time None Recorded Advance Directives Directive N: Payers Encounter Date Sequence Insurance Name Policy Number Policy Gamez Covered Member ID Gamez Member ID Guarantor Name 09/11/2022 1 [facility] ON OR AFTER 02/24/21 (MEDICAID REPLACEMENT - HMO) Shelbey Gassett [id number] Shelbey Gassett 10/12/2022 1 [facility] ON OR AFTER 02/24/21 (MEDICAID REPLACEMENT - HMO) Shelbey Gassett [id number] Shelbey Gassett 11/06/2022 1 [facility] ON OR AFTER 02/24/21 (MEDICAID REPLACEMENT - HMO) Shelbey Gassett [id number] Shelbey Gassett 12/04/2022 1 [facility] ON OR AFTER 21 (MEDICAID REPLACEMENT - HMO) Shelbey Gassett [id number] Shelbey Gassett 01/03/2023 1 [facility] - [facility] ON OR AFTER 21 (MEDICAID REPLACEMENT - HMO) Shelbey Gassett [id number] Shelbey Gassett OBGyn Episode Ob Episode Information Episode Created Date Number of Fetuses Patient Bloodtype Patient rh Status Prepregnancy Weight lbs Domestic Partner Domestic Partner Phone Father Name [employer] Teacher Status 04/14/20 21 1 CLOSED Fetus Data First Name Last Name Admitted to NICU Weight (g) Sex Living Outcome Pediatric Complications Fetus ID Race Codes Race Delivery Type 3259.96 5704 M Full Term [id number] Vaginal Delivery Chris Calculation Initial Chris Date Initial Exam Date Initial Exam Provider Initial Ultrasound Date Last Menstrual Period Date Ultra Sound Weeks Gestation 0 Eighteen To Twenty Week Chris Update Ultra Sound Date Fundal Height At Umbil Quickening Date Ultra Sound Latest Weeks Gestation Final Chris Confirmed By Final Chris Confirmed Date Final Chris Date Ultra Sound Latest Days Gestation 0 0 Menstrual History Last Menstrual Date Menses Monthly On Bcp Conception Prior Menses Frequency Hcg Plus Date Menarche Onset Age Delivery Information Delivery Date Delivery Type Labor Anesthesia Weeks Gestation Incision Type Labor Labor Length Hrs Delivered By Post Complications Tubal Sterilization Discharge Date Comments 8 37 Discharge Information Feeding Method Contraceptive Method Maternal HG B and HCT Levels Ob Episode Information Episode Created Date Number of Fetuses Patient Bloodtype Patient rh Status Prepregnancy Weight lbs Domestic Partner Domestic Partner Phone Father Name [employer] Teacher Status 04/14/20 21 1 CLOSED Fetus Data First Name Last Name Admitted to NICU Weight (g) Sex Living Outcome Pediatric Complications Fetus ID Race Codes Race Delivery Type 3572.03 7 F Full Term [id number] Vaginal Delivery Chris Calculation Initial Chris Date Initial Exam Date Initial Exam Provider Initial Ultrasound Date Last Menstrual Period Date Ultra Sound Weeks Gestation 0 Eighteen To Twenty Week Chris Update Ultra Sound Date Fundal Height At Umbil Quickening Date Ultra Sound Latest Weeks Gestation Final Chris Confirmed By Final Chris Confirmed Date Final Chris Date Ultra Sound Latest Days Gestation 0 0 Menstrual History Last Menstrual Date Menses Monthly On Bcp Conception Prior Menses Frequency Hcg Plus Date Menarche Onset Age Delivery Information Delivery Date Delivery Type Labor Anesthesia Weeks Gestation Incision Type Labor Labor Length Hrs Delivered By Post Complications Tubal Sterilization Discharge Date Comments 0 37 Discharge Information Feeding Method Contraceptive Method Maternal HG B and HCT Levels Ob Episode Information Episode Created Date Number of Fetuses Patient Bloodtype Patient rh Status Prepregnancy Weight lbs Domestic Partner Domestic Partner Phone Father Name [employer] Teacher Status 09/11/19 23 1 O Positive 195 CLOSED Fetus Data First Name Last Name Admitted to NICU Weight (g) Sex Living Outcome Pediatric Complications Fetus ID Race Codes Race Delivery Type [id number] Problems Problem Notes 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 Will need echo eventually also - 11/17 1030 u/s only Level II 12/18 1:00 u/d only 01/16 1:00 u/s only Problem Name Start Date End Date Resolution Snomed Code Not e Asthma [id number] quiscent Past history of pre-eclampsia 08/16/2022 613570587759190 LD ASA 162 mg/day; with pulmonary edema x2 Vertebral abnormalities, anal atresia, cardiac abnormalities, tracheo-esophageal fistula, renal anomalies, limb defects syndrome 642991061 wit h this- has seen genetics, to get echo - MFM rec no risk to fetus Anxiety in 865093070 96184 increased lexapro to 20, not yet improving History of sleeve gastrectomy 400648432337593 MFM rec jell y madrid test instead of liquid, to see bariatric team Feb Vitamin B12 level below reference range 297292718 B12 daily Vitamin D deficiency 57893263 1,000-2,000 IUs daily Anemia 12/07/2022 580707681 1 tab slo wfe bid- IV infusion referral faxed 12/14 Hypoglycemia 208917526 borderl ine - precautions given Chris Calculation Initial Chris Date Initial Exam Date Initial Exam Provider Initial Ultrasound Date Last Menstrual Period Date Ultra Sound Weeks Gestation 04/01/2023 09/11/2022 08/16/2022 06/25/2022 8 Eighteen To Twenty Week Chris Update Ultra Sound Date Fundal Height At Umbil Quickening Date Ultra Sound Latest Weeks Gestation Final Chris Confirmed By Final Chris Confirmed Date Final Chris Date Ultra Sound Latest Days Gestation 0 [email or web address] 09/12/2022 04/01/20 23 0 Pre-justen Flowsheet Flowsheet Date 09/11/2022 Calvin Score Blood Edema Fundus Height Fundus Units Glucose Ketones Leukocytes Nitrite Labor Signs Protein Cervic Dilation Cervic Effacement Cervic Station neg none none trace Type Weight in lbs Pre/Post Dialysis Refused Weight 193.61718998045 BP Diastolic BP Location Tested BP Systolic BP Type 67 100 Fetus Heart Rate Present A 170 Fetus Movement A No Comments Colin is a 32yo at 11.2 for care. She has a history of PreE x2, with pulmonary edema both times requiring lasix. She will take ASA and we will do baseline PIH labs today with her PNL and NIPT. NOrmal NT today. Her has VACTERL, they have seen genetics. Will get MFM consult for this as well as her relatively recent sleeve gastrectomy, lost 120# and only recently stopped losing significant weight. Plan echo. She has follow up with her bariatric team next month. We increased her lexapro to 20mg last month and it is not helping much yet. Depression and anxiety precautions given. Flowsheet Date 10/12/2022 Calvin Score Blood Edema Fundus Height Fundus Units Glucose Ketones Leukocytes Nitrite Labor Signs Protein Cervic Dilation Cervic Effacement Cervic Station neg none none trace Type Weight in lbs Pre/Post Dialysis Refused Weight 198.834922803877 BP Diastolic BP Location Tested BP Systolic BP Type 69 108 Fetus Heart Rate Present Fetus Movement A Yes Comments Doing well. MFM visit next w kletsel dehe wintun. Flowsheet Date 11/06/2022 Calvin Score Blood Edema Fundus Height Fundus Units Glucose Ketones Leukocytes Nitrite Labor Signs Protein Cervic Dilation Cervic Effacement Cervic Station neg none 20 none trace Type Weight in lbs Pre/Post Dialysis Refused Weight 206.813645118549 BP Diastolic BP Location Tested BP Systolic BP Type 61 95 Fetus Heart Rate Present A 149 Fetus Movement A Yes Comments Doing well. Taking two baby aspirin daily per mfm recommendation. Having a boy. Baseline anatomy with MFM. Flowsheet Date 12/04/2022 Calvin Score Blood Edema Fundus Height Fundus Units Glucose Ketones Leukocytes Nitrite Labor Signs Protein Cervic Dilation Cervic Effacement Cervic Station neg none 26 none trace Type Weight in lbs Pre/Post Dialysis Refused Weight [id number] BP Diastolic BP Location Tested BP Systolic BP Type 61 99 Fetus Heart Rate Present A 141 Fetus Movement A Yes Comments Thinks she may be having blo od sugar problems. Dizzy spells & nausea. Improved with juice and food but happened multiple times. Will go ahead with early gtt alejandra along with tsh and cbc. Also want her to eat protein every 2-3 hours. Also consider 24 hour holter. Pt would like for labs then discuss. Also could consider vitamin and mineral panel d/t history of bariatric surgery. Follow up anatomy with MFM next week. Flowsheet Date 01/03/2023 Calvin Score Blood Edema Fundus Height Fundus Units Glucose Ketones Leukocytes Nitrite Labor Signs Protein Cervic Dilation Cervic Effacement Cervic Station neg none none trace Type Weight in lbs Pre/Post Dialysis Refused Weight 209.424711057028 BP Diastolic BP Location Tested BP Systolic BP Type 60 97 Fetus Heart Rate Present Fetus Movement A Yes Comments patient is having some contr actions, nausea and vomiting. will callout josean, one hour done 70, iron infusions start next week, PTL precautions, discussed testing, not yet scheduled. 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 will try scheduled zofran to see if helps with nausea f/u 2 weeks Menstrual History Last Menstrual Date Menses Monthly On Bcp Conception Prior Menses Frequency Hcg Plus Date Menarche Onset Age 1006/25/2022 Genetic Screening And Infection History Question Response Note Mental Retardation/Autism false Patient's Age Will Be 35 Yea rs Or Older At Estimated Date of Delivery false Thalassemia (Portuguese, Citizen Of [place], Mediterranean, Or Background): MCV < 80 false Neural Tube Defect (Meningom yelocele, Spina Bifida, Or Anencephaly) false Congenital Heart Defect true with VACTERL Down Syndrome false Gera-Sachs (eg, Oriental Orthodox, Cajun, American-[place]) f alse Sandy Disease false Sickle Cell Disease Or Trait () false Hemophilia Or Other Blood Disorders false Muscular Dystrophy false Cystic Fibrosis false Spink's Chorea false Intellectual Disability/Autism false If Yes, Was Person Tested For Fragile X? false Other Inherited Genetic Or Chromosomal Disorder false Maternal Metabolic Disorder (eg, Type 1 Diabetes , PKU) false Patient Or Baby's Father Had A Child With Defects Not Listed Above false Recurrent Loss, Or A Stillbirth false Medications (including Suppl ements, Vitamins, Herbs, OTC Drugs), Illicit/Recreational Drugs, Alcohol false If Yes, Agent(s) And Strength/Dosage false Any Other Genetic History false Live With Someone With TB Or Exposed To TB false Patient Or Partner Has History Of Genital Herpes false Rash Or Viral Illness Since Last Menstrual Perio d false History Of STD, Gonorrhea, Chlamydia, HPV, Syphi lis false Other Infection History false History of HIV false History of Hepatitis false Prior GBS-infected child false Hemoglobinopathy Or Carrier false Other Structural Defect false Recent Travel History Outside of Country false Delivery Information Delivery Date Delivery Type Labor Anesthesia Weeks Gestation Incision Type Labor Labor Length Hrs Delivered By Post Complications Tubal Sterilization Discharge Date Comments Discharge Information Feeding Method Contraceptive Method Maternal HG B and HCT Levels
--- OUTSIDE RECORDS SUMMARY | 2025-01-22 12:46 | XMS_ITS | Referral Summary ---
Author Organization [facility] Address [address] [place] [address] Care Team Providers Care Cook Chili Name Role Phone Shaq Agarwal MD Unavailable [phone] Lyric Nascimento NP Primary Care Provider [phone] Allergies Active Allergy Reactions Criticality Noted Date Comments Acetaminophen Other (See comments) Low 04/23/2019 Dimenhydrinate Other (See comments) Low 10/19/2017 Tingly all over Hydrocodone Bitartrate Other (See comments) Low 04/23/2019 Hydrocodone-Acetaminophen Nausea & Vomiting Low Medications buPROPion SR (WELLBUTRIN SR) 150 mg 12 hr tablet Acti ve albuterol sulfate 90 mcg/actuation aerosol powdr breath activated Inhale every 6 hours as needed Active no.[id number] 28 mg iron- 1 mg-200 mg capsule Take 1 capsule by mouth daily 8 Active ondansetron (ZOFRAN) 4 mg tablet TK 1 T PO Q 8 H PRN 0 9 Active ursodiol (ROQUE FORTE) 500 mg tablet Take 1 tablet (500 mg total) by mouth 2 (two) times a day 60 tablet 3 0 Active escitalopram (LEXAPRO) 20 mg tablet Take 1 tablet (20 mg total) by mouth daily Active acyclovir (ZOVIRAX) 400 mg tablet Take 1 tablet (400 mg total) by mouth 3 (three) times a day 4 Active ofloxacin (OCUFLOX) 0.3 % ophthalmic solutionIndications :Acute bacterial conjunctivitis of both eyes instill 2 drops in affected eye(s) every 2 to 4 hours for 2 days, then 2 drops 4 times daily on days 3 through 7 10 mL 4 Active Active Problems Problem Noted Date Diagnosed Date FOB with VACTERL 06/16/2019 Hx of preeclampsia, prior pr egnancy, currently , second trimester 06/16/2019 Obesity complicating in second trimest er 06/16/2019 [facility] Overview (05/12/2019): [] Co-management vs. [] Full [facility] Care; Referring Provider: Shaq Agarwal [phone] [x] Dating Criteria: LMP 01/29/19 THOMAS 11/05/19 [x] Labs: Rh [O+], Ab [negative], Rubella [immune], HIV [non-reactive], HepBSAg [non-reactive], RPR [not done], GC/CT [negative/negative] [] Genetic Screening: [x] CBC/Hgb 11.7/34.9/plt 265 [] Early 1hr GTT (if indicated) [] UCx: [x] Pap: 04/23/19 negative [] LD ASA (if indicated) starting at 12 weeks: [] EPDS [ ]; PNBHS referral (if indicated) 2nd Tri Labs: [] Anatomy ultrasound: [] CBC/1hr gtt at 24-28wks: [] Flu Shot (Apr-Jul): [] Tdap (27-36wks): [] Rhogam at 28 wks (if Rh neg): 3rd Tri Labs: [] CBC/HIV/RPR/T&S: [] GBS: [] GC/CT (if indicated): Counselling [] MOD: [] Place of delivery: [] MOC: [] Method of feeding: [] Shop Helper: [] PP Depression Discussed: Abdominal pain 10/13/2016 Asthma 06/29/2015 Overview (12/07/2016): Asthma Complicated migraine 06/29/2015 Overview (12/07/2016): Complicated migraine Polycystic ovaries 11/27/2014 Dislocation of acromioclavicular joint 2 Arthralgia of shoulder 03/15/2011 Family history of congenital heart disease in fa ther Immunizations Immunization Administration Dates Next Due DTP 1992,1992,1992 HPV, Quadrivalent 04/09/2008 HPV, Unspecified 10/26/2008,06/25/2008 Hep A, Pediatric 08/31/2011 Hep B Vaccine 06/04/2002,1992,1992 ,1992 HiB 1992,1992 Hib (PRP-OMP) 1992 Influenza, Trivalent, IM (MDV) 05/27/2014 MMR 12/04/1996,07/18/1993 OPV 12/04/1996,12/12/1993,1992 ,1992 Tdap 09/10/2019 Social History Tobacco Use Types Packs/Day Years Used Date Smoking Tobacco: Never Smokeless Tobacco: Never Tobacco Cessation:Counseling Given: Yes Alcohol Use Standard Drinks/Week Comments Yes 0 (1 standard drink = 0.6 oz pur e alcohol) Personal Safety Answer Date Recorded Getting School Help Needed Not on file 11/05 Comments No Sex and Gender Information Value Date Recorded Sex Assigned at Not on file Legal Sex Female 3:51 AM OPERATION MANAGER Gender Identity Not on file Sexual Orientation Not on file Last Filed Vital Signs Vital Sign Reading Time Taken Comments Blood Pressure 114/78 11/06/2023 10:17 AM CDT Pulse 78 11/06/2023 10:17 AM CDT Temperature 36.8 C (98.2 F) 11/06/2023 10:17 AM CDT Respiratory Rate 20 11/06/2023 10:17 AM CDT Oxygen Saturation 100% 11/06/2023 10:17 AM CDT Inhaled Oxygen Concentration - - Weight 99.8 kg (220 lb) 11/06/2023 10:17 AM CDT Height 167.6 cm (5' 6) 09/23/2019 1:50 PM OPERATION MANAGER Body Mass Index 35.51 09/23/2019 1:50 PM OPERATION MANAGER Plan of Treatment Not on file Procedures Procedure Name Priority Date/Time Associated Diagnosis Comments HEPATITIS PANEL, ACUTE Timed 09/10/2019 9:40 AM OPERATION MANAGER from Last 3 Months or Most Recently Relevant to Health Maintenance Results * Hepatitis panel, acute (09/10/2019 9:40 AM OPERATION MANAGER) Hep A IgM Nonreactive Nonreactive [facility] Comment: Interpretive Data If test is reported as GRAYZONE, new sample should be drawn in two weeks for testing. Current interpretive data was last revised on 2016. Hep B core IgM Nonreactive Nonreactive [facility] Comment: Interpretive Data If test is reported as GRAYZONE, new sample should be drawn for testing. Current interpretive data was last revised on 2016. Hep C Ab Nonreactive Nonreactive [facility] Comment: Interpretive Data Positive results should be confirmed by a molecular method. If positive, a second separately collected sample should be submitted for Hepatitis C Virus (HCV) RNA Detection and Quantitation by Real-Time Reverse Mill Crane Operator-PCR (RT-PCR). Current interpretive data was last revised on 2016. HepBsAg Nonreactive Nonreactive [facility] Blood specimen (specimen) 09/10/2019 9:40 AM OPERATION MANAGER 09/10/2019 10:14 AM OPERATION MANAGER Krystal Hankins MD LAB MICRO BIOLOGY - GENERAL ORDERABLES Edited Result - Final [facility] Department [place] [address] from Last 3 Months or Most Recently Relevant to Health Maintenance Insurance [facility] [id number] [place] [address] [facility] Advance Directives For more information, please contact: [phone] * Full Code (Latest Code Status on File) Date Activated Date Inactivated Comments 09/09/2019 8:40 PM 09/12/2019 5:22 PM Full CPR in case of cardiopulmonary arrest Care Teams Cook Chili Relationship Specialty Start Date End Date Lyric Nascimento NP [address] [address] PCP - General Family Medicine 11/06/23 Shaq Agarwal MD [address] [place] [address] Referring Physician Obstetrics and Gynecology 05/06/19
--- OUTSIDE RECORDS SUMMARY | 2025-01-22 12:46 | XMS_ITS | Clinical Summary ---
Author Organization [facility] Address [address] [place] [address] Care Team Providers Care Health Record Technician Name Role Phone Radha Keller GAGGERMAN-TRANSPORTATION ANALYST Primary Care Provide r Source Comments [facility],non-owned Affiliates and Associated Physician Practices is amultiple site organization consisting of ambulatory clinics and hospital sitesin [place], [place], [place] and [place]. This disclosure is being madepursuant to the Care Everywhere program and may not contain all information available regarding this patient. Last updated 18.[facility] Allergies Active Allergy Reactions Criticality Noted Date Comments Dimenhydrinate Other,Unknown Low 10/19/2017 Tingly all over Tingly all over Hydrocodone-Acetaminophen Vomiting 10/29/2020 Medications * Be aware that medications may not be up to date on this document. Alwaysverify current medications with the patient. Albuterol Sulfate 108 (90 Base) MCG/ACT Inhale by mouth as needed Patient reports she has not needed this medication since 2018 Active Probiotic Product (Surf Air) capsuleIndicati ons:Bariatric surgery status Take 1 (one) capsule by mouth once daily 30 capsule 3 1 Active multivitamin daily tabletIndicatio ns:do not restart until energy efficiency engineer visit Take 1 (one) tablet by mouth daily with food Reasons: do not restart until energy efficiency engineer visit 1 Active CALCIUM CITRATE PO Take by mouth 4 times daily Active escitalopram (Lexapro) 20 MG tabletIndicatio ns:Generalized Anxiety Disorder Take 1 (one) tablet by mouth once daily Reasons: Generalized Anxiety Disorder Active Vit-Fe Fumarate-FA ( vitamin) 28-0.8 MG tablet Take 1 (one) tablet by mouth once daily Active Active Problems Problem Noted Date Diagnosed Date Morbid obesity 01/25/2021 Family history of VATER complex 08/05/2019 Overview (08/05/2019): (FOB) Primary MD ? echo Family History Medical History Relation Name Comments Hypertension Father Thyroid Disease Father CVA Maternal Grandfather Arthritis - Osteo Maternal Grandmother CAD (Coronary Artery Disease) Maternal Grandmother CVA Maternal Grandmother Hyperlipidemia Maternal Grandmother Hypertension Maternal Grandmother Thyroid Disease Maternal Grandmother Blood Clots Mother PE after surger y Hypertension Mother Thyroid Disease Mother Cancer Paternal Grandfather throat and voice box Asthma Paternal Grandmother Hypertension Paternal Grandmother Thyroid Disease Paternal Grandmother Hyperlipidemia Sister Hypertension Sister Migraine Sister Seizures Sister Relation Name Status Comments Father Maternal Grandfather Maternal Grandmother Mother Paternal Grandfather Paternal Grandmother Sister Social History Tobacco Use Types Packs/Day Years Used Date Smoking Tobacco: Never Smokeless Tobacco: Never Alcohol Use Standard Drinks/Week Comments Yes 0 (1 standard drink = 0.6 oz pur e alcohol) occ. Comments No Sex and Gender Information Value Date Recorded Sex Assigned at Female 08/05/2020 8:32 PM KITCHEN CLEANER Legal Sex Female 10:53 AM KITCHEN CLEANER Gender Identity Female 08/05/2020 8:32 PM KITCHEN CLEANER Sexual Orientation Straight 08/05/2020 8: 32 PM KITCHEN CLEANER Last Filed Vital Signs Vital Sign Reading Time Taken Comments Blood Pressure 110/70 10/18/2022 11:03 AM KITCHEN CLEANER Pulse 81 10/18/2022 11:03 AM KITCHEN CLEANER Temperature 36.6 C (97.8 F) 12/16/2021 10:36 AM CDT Respiratory Rate 20 12/16/2021 10:36 AM CDT Oxygen Saturation 99% 12/16/2021 10:36 AM CDT Inhaled Oxygen Concentration - - Weight 90 kg (198 lb 6.4 oz) 10/18/2022 11:03 AM KITCHEN CLEANER Height 170.2 cm (5' 7) 10/18/2022 11:03 AM KITCHEN CLEANER Body Mass Index 31.07 10/18/2022 11:03 AM KITCHEN CLEANER Plan of Treatment Health Maintenance Due Date Last Done Comments HEPATITIS C SCREENING 04/08/2010 DTAP/TDAP/TD VACCINES (1 - Tdap) 2011 HEPATITIS B VACCINE (1 of 3 - 19+ 3-dose series) 2011 COVID-19 VACCINE (1 - 2023-2 5 season) 2024 DEPRESSION SCREENING 08/27/2024 INFLUENZA VACCINE (Season Ended) 2025 05/21/2017, 05/27/2014 PAP SMEAR 08/16/2025 08/16/2022 ZOSTER VACCINE (1 of 2) 2042 HIV SCREENING Completed 09/11/2022 HIB VACCINE Aged Out No longer eligi ble based on patient's age to complete this topic HPV VACCINE Aged Out No longer eligi ble based on patient's age to complete this topic MENINGOCOCCAL (Group B) VACCINE SHARED DECISION-MAKING Aged Out No longer eligible based on patient's age to complete this topic MENINGOCOCCAL GROUPS A/C/Y/W VACCINE Aged Out No longer eligible b ased on patient's age to complete this topic PNEUMOCOCCAL VACCINE Aged Out No long er eligible based on patient's age to complete this topic Medical Devices Implanted Type Area House Calls Nurse Device Identifier Shelf Expiration Date Model / Serial / Lot Kit Tissue Clsr Duo Tssl 1 Prefl Syr Implanted:Qty: 1 on 01/25/2021 by Bijal Riddle MD at [facility] N/A: Stomach [employer] 06/26/2022 [id number] / / [id number] Insurance [facility] [employer] Advance Directives * Full Code (Latest Code Status on File) Date Activated Date Inactivated Comments 01/25/2021 12:47 PM 01/26/2021 2:28 PM Care Teams Health Record Technician Relationship Specialty Start Date End Date Radha Keller APRN-CNP [address] [place] [id number] PCP - General Nurse Practitioner 06/18/20
--- OUTSIDE RECORDS SUMMARY | 2025-01-22 12:46 | XMS_ITS | Clinical Summary ---
Author Organization [facility] Address [address] [place] [address] Care Team Providers Care Superintendent Terminal Name Role Phone Shaq Agarwal MD Unavailable [phone] Lyric Nascimento NP Primary Care Provider [phone] Allergies Active Allergy Reactions Criticality Noted Date Comments Acetaminophen Other (See comments) Low 04/23/2019 Dimenhydrinate Other (See comments) Low 10/19/2017 Tingly all over Hydrocodone Bitartrate Other (See comments) Low 04/23/2019 Hydrocodone-Acetaminophen Nausea & Vomiting Low Medications buPROPion SR (WELLBUTRIN SR) 150 mg 12 hr tablet Acti ve albuterol sulfate 90 mcg/actuation aerosol powdr breath activated Inhale every 6 hours as needed Active no.[id number] 28 mg iron- 1 mg-200 mg capsule [...] [facility] Overview (05/12/2019): [] Co-management vs. [] Full [facility] Care; Referring Provider: Shaq Agarwal [phone] [x] Dating Criteria: LMP 01/29/19 THOMAS 11/05/19 [...] [] MOC: [] Method of feeding: [] After School Counselor: [] PP Depression Discussed: Abdominal pain 10/13/2016 [...] MMR 12/04/1996,07/18/1993 OPV 12/04/1996,12/12/1993,1992 ,1992 Tdap 09/10/2019 Surgical History Surgery Date Site/Laterality Comments OTHER SURGICAL HISTORY Right dislocated shoulder: shoudler surgery OTHER SURGICAL HISTORY Right bone spur removal on heel Medical History Medical History Date Comments Hx Other Medical dislocated shou lder; Comments: GLN 06/29/2015 - Family History Medical History Relation Name Comments Other Brother 2 Alive and well; ADD / ADHD Brother 3 ADD/ADHD; Other Father Alive and well; Other Mother post-surgical D VT; Other Sister 4 Alive and well; Other Sister 5 Alive and well; Migraines Sister 6 Migraines; Migraines Sister 7 Migraines; Other Sister 8 history of seiz ures; Relation Name Status Comments Brother 1 Alive Brother 2 Brother 3 Father Alive Mother Sister 1 Alive Sister 2 Alive Sister 3 Alive Sister 4 Sister 5 Sister 6 Sister 7 Sister 8 Social History Tobacco Use Types Packs/Day Years [...] on file Legal Sex Female 3:51 AM OPTICAL DESIGNER Gender Identity Not on file Sexual Orientation Not on file Obstetrics History Para Term AB IAB SAB Ectopic Multiple Livin g Live Births 2 1 1 1 1 Date Outcome GA Total Labor Labor/2nd/3rd Weight Sex Type Anes PTL Amanda A1 A5 Name Clin 36w 0d Vag-S pont Living Complications:Pre eclampsia, PIH ( induced hypertension),Pulmonary edema Last Filed Vital Signs Vital Sign Reading [...] 167.6 cm (5' 6) 09/23/2019 1:50 PM OPTICAL DESIGNER Body Mass Index 35.51 09/23/2019 1:50 PM OPTICAL DESIGNER Plan of Treatment Health Maintenance Due Date Last Done Comments Cervical Cancer Screening 1992 Depression Screening 1992 Varicella Vaccines (1 of 2 - 13+ 2-dose series) 2005 Regular Well Visit/Exam 18-64 2010 Pneumococcal vaccine <65 (1 of 2 - PCV) 2011 Influenza Vaccine (Season Ended) 2025 05/21/20 17, 05/27/2014 DTaP/Tdap/Td Vaccine (6 - Td or Tdap) 09/10/2029 09/10/2019, 07/28/2018, 1992, Additional history exists Hepatitis B Screening Completed 06/04/2002 , 1992, 1992, Additional history exists HPV Vaccines Completed 10/26/2008, 05/29, 04/09/2008 Hepatitis C Screening Completed 09/10/2019, 019 Procedures Procedure Name Priority Date/Time Associated Diagnosis Comments HEPATITIS PANEL, ACUTE Timed 09/10/2019 9:40 AM OPTICAL DESIGNER from Last 3 Months or Most Recently Relevant to Health Maintenance Results * Hepatitis panel, acute (09/10/2019 9:40 AM OPTICAL DESIGNER) Hep A IgM Nonreactive Nonreactive [facility] Comment: Interpretive Data If test is reported as GRAYZONE, new sample should be drawn in two weeks for testing. Current interpretive data was last revised on 2016. Hep B core IgM Nonreactive Nonreactive [facility] Comment: Interpretive Data If test is reported as GRAYZONE, new sample should be drawn for testing. Current interpretive data was last revised on 2016. Hep C Ab Nonreactive Nonreactive [facility] Comment: Interpretive Data Positive results should be confirmed by a molecular method. If positive, a second separately collected sample should be submitted for Hepatitis C Virus (HCV) RNA Detection and Quantitation by Real-Time Reverse Refrigeration Insulator-PCR (RT-PCR). Current interpretive data was last revised on 2016. HepBsAg Nonreactive Nonreactive [facility] Blood specimen (specimen) 09/10/2019 9:40 AM OPTICAL DESIGNER 09/10/2019 10:14 AM OPTICAL DESIGNER Krystal Hankins MD LAB MICRO BIOLOGY - GENERAL ORDERABLES Edited Result - Final [facility] Department [place] [address] from Last 3 Months or Most Recently Relevant to Health Maintenance Insurance [facility] Advance Directives For more information, please contact: [phone] * Full Code (Latest Code Status on File) Date Activated Date Inactivated Comments 09/09/2019 8:40 PM 09/12/2019 5:22 PM Full CPR in case of cardiopulmonary arrest Care Teams Superintendent Terminal Relationship Specialty Start Date End Date Lyric Nascimento NP [address] [address] PCP - General Family Medicine 11/06/23 Shaq Agarwal MD [address] [place] [address] Referring Physician Obstetrics and Gynecology 05/06/19
--- OUTSIDE RECORDS SUMMARY | 2025-01-22 12:46 | XMS_ITS | Clinical Summary ---
Author Organization [facility] Address [address] [place] [address] Phone Care Team Providers Care Vegetable Washer Name Role Phone Maren Maria Primary Care Provider [phone] Allergies Active Allergy Reactions Criticality Noted Date Comments Dimenhydrinate Other (See Comments) Low 10/19/2017 Tingly all over Medications albuterol sulfate 90 mcg/actuation metered powder inhaler Take by inhalation every 6 hours as needed . Active MECLIZINE HCL (MECLIZINE ORAL)Indications: PCOS (polycystic ovarian syndrome),Mild intermittent asthma without complication Take 25 mg by mouth 1 time daily as needed . Active FINACEA 15 % GelIndications:PC OS (polycystic ovarian syndrome),Mild intermittent asthma without complication 1 time daily as needed. 3 8 Active Clindamycin-Benzo yl Peroxide 1.2 %(1 % base) -5 % GelIndications:PC OS (polycystic ovarian syndrome),Mild intermittent asthma without complication 1 time daily as needed. 3 8 Active no.07-[id number]-dha (OUTSOLE LEVELER-PNV-DHA) 28 mg iron- 1 mg-200 mg Capsule Take 1 Capsule by mouth daily. 90 Capsule 3 8 Active ondansetron (ZOFRAN, HYDROCHLORIDE,) 8 mg Tablet 1/2 to 1 tab q8hr prn nausea. 30 Tablet 8 Active Active Problems Problem Noted Date Diagnosed Date Family history of DVT 10/19/2017 Mild intermittent asthma without complication Morbid obesity 10/19/2017 BMI 45.0-49.9, adult 06/15/2017 PCOS (polycystic ovarian syndrome) 06/15/2017 Resolved Problems Problem Noted Date Diagnosed Date Resolved Date Fertility testing 10/19/2017 10/19/2017 Immunizations Immunization Administration Dates Next Due Influenza Seasonal Unspecified Formulation IM Family History Medical History Relation Name Comments Healthy Brother Healthy Father Alzheimer's Disease Maternal Grandfather Heart Disease Maternal Grandmother Stroke Maternal Grandmother Thyroid Disease Maternal Grandmother Healthy Mother Hypertension Mother Other Mother PE blood clot d ue to fracture, immobilizain Cancer Paternal Grandfather THROAT Pacemaker Paternal Grandfather Heart Disease Paternal Grandmother Pacemaker Paternal Grandmother Other Sister 1 MIGRAINES/SEIZR ES Seizures Sister 1 Migraines Sister 2 half Other Sister 2 half MIGRAINES/seizu res Bleeding Problem Neg Hx Breast Cancer Neg Hx Colon Cancer Neg Hx Lung Cancer Neg Hx Ovarian Cancer Neg Hx SLE Neg Hx Relation Name Status Comments Brother Alive Father Alive Maternal Grandfather Maternal Grandmother Mother Alive Paternal Grandfather Paternal Grandmother Alive Sister 1 Alive Sister 2 half Alive Social History Tobacco Use Types Packs/Day Years Used Date Smoking Tobacco: Never Smokeless Tobacco: Never Alcohol Use Standard Drinks/Week Comments Yes 0 (1 standard drink = 0.6 oz pur e alcohol) social Comments No Sex and Gender Information Value Date Recorded Sex Assigned at Not on file Legal Sex Female 9:18 PM PRESCHOOL DISABILITY TEACHER Gender Identity Not on file Sexual Orientation Not on file 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 Not on file Not on file Not on file Last Filed Vital Signs Vital Sign Reading Time Taken Comments Blood Pressure 97/57 04/23/2018 1:14 PM CDT Pulse 74 10/19/2017 8:49 AM PRESCHOOL DISABILITY TEACHER Temperature 36.9 C (98.4 F) 10/10/2017 8:51 AM PRESCHOOL DISABILITY TEACHER Respiratory Rate 16 10/10/2017 8:51 AM PRESCHOOL DISABILITY TEACHER Oxygen Saturation 100% 10/19/2017 8:49 AM PRESCHOOL DISABILITY TEACHER Inhaled Oxygen Concentration - - Weight 127.5 kg (281 lb) 04/23/2018 1:14 PM CDT Height 167.6 cm (5' 6) 04/23/2018 1:14 PM CDT Body Mass Index 45.35 04/23/2018 1:14 PM CDT Plan of Treatment Health Maintenance Due Date Last Done Comments HPV VACCINES (2 - 3-dose series) 05/07/2008 04/09/20 08 DTAP/TDAP/TD VACCINES (1 - Tdap) 2011 PAP SMEAR 2022 06/15/2017 CERVICAL CANCER SCREENING 06/15/2022 HPV/Cotest (21-29) 06/15/2022 06/15/2017 HPV/Cotest (30-65) 06/15/2022 06/15/2017 INFLUENZA VACCINE (#1) 2024 8, 05/21/2017, 05/27/2014 HEPATITIS B VACCINES Completed 06/04/2002, 1992, 1992, Additional history exists Procedures Procedure Name Priority Date/Time Associated Diagnosis Comments CERV/VAG CYTO SCREEN PAP RLFX HPV Routine 06/15/2017 1:49 PM CDT Cervical cancer screening from Last 3 Months or Most Recently Relevant to Health Maintenance Results * CERV/VAG CYTOPATH, THIN PREP IMAGR RFLX HPV (06/15/2017 1:49 PM CDT) CLINICAL INFORMATION SEE COMMENT 06/21/2017 3:41 PM CDT [facility] Comment:Routine exam LAST MENSTRUAL PERIOD SEE COMMENT 06/21/2017 3:41 PM CDT [facility] Comment:INFORMATION NOT PROV IDED PREV PAP: SEE COMMENT 06/21/2017 3:41 PM CDT [facility] Comment:INFORMATION NOT PROV IDED PREV BX: SEE COMMENT 06/21/2017 3:41 PM CDT [facility] Comment:INFORMATION NOT PROV IDED SOURCE Endocervix 06/21/2017 3:41 PM CDT [facility] ADEQUACY: SEE COMMENT 06/21/2017 3:41 PM CDT [facility] Comment: Satisfactory for evaluation. Endocervical/transformation zone component present. Age and/or menstrual status not provided PAP INTERP SEE COMMENT 06/21/2017 3:41 PM CDT [facility] Comment:Negative for intraep ithelial lesion or malignancy. COMMENT SEE COMMENT 06/21/2017 3:41 PM CDT [facility] Comment: This Pap test has been evaluated with computer assisted technology. CARROT HARVESTER: SEE COMMENT 2016 3:41 PM CDT [facility] Comment: DDS, CT(ASCP) CT screening location: [place] [address] [address] [place] [id number] REVIEW CARROT HARVESTER: SEE COMMENT 06/21/2017 3:41 PM CDT [facility] Comment: ABC, CT(ASCP) CT screening location: [place] [address] [address] [place] [id number] Genital SWAB OF ENDOCERVIX / Unknown Collection / Unknown 06/15/2017 1:49 PM CDT 06/15/2017 5:00 PM CDT Narrative [facility] - 06/21/2017 3:41 PM CDT Performing Organization Information: Site ID: Name: [facility] Address: formerly [facility] [address] [place] [id number] Director: Sanjiv Og MD november Aren GRANADOS PATHOLOGY/CYTOLOGY ORDERABLES Final Result [facility] from Last 3 Months or Most Recently Relevant to Health Maintenance Care Teams Vegetable Washer Relationship Specialty Start Date End Date Maren Maria DO PCP - General Family Practice 10/10/17
[2025-01-22 13:35] LABS: Strep Group A RT-PCR DETECTED (Negative)
== END 2025-01-22 12:50 | disposition home or self-care (01) ==
LOC: ANHLAB 12:49
PROVIDERS: PCP Nurse Practitioner Family; Visit Provider Nurse Practitioner Family
DX: J02.9 Acute pharyngitis, unspecified (principal)
CPT/HCPCS: 87651

== ENCOUNTER 2025-02-19 12:16 | Outpatient (CLI) | payer OTHER, MEDICAID, SELFPAY ==
[2025-02-19 12:44] LABS: Basophils Percent Auto 0.4 % (0.2-1.2); Eosinophils Absolute Auto 0.1 K/mm3 (0-0.3); Eosinophils Percent Auto 1.9 % (0-4.4); Hematocrit 34.9 % (37.0-47.0); Hemoglobin 10.1 g/dL (12.0-15.0); Immature Granulocyte Absolute 0.01 K/mm3 (0.00-0.031); Immature Granulocyte Percent A 0.2 % (0-0.5); Lymphocytes Absolute Auto 1.56 K/mm3 (0.9-3.2); Mean Corpuscular HGB Conc 28.9 g/dl (32-36); Mean Corpuscular Volume 79.5 fl (80-100); Mean Platelet Volume 8.9 fl (7.4-10.4); Monocytes Absolute Auto 0.5 K/mm3 (0.1-0.6); Monocytes Percent Auto 8.7 % (2.6-8.5); Neutrophils Absolute Auto 3.2 K/mm3 (1.3-6.7); Neutrophils Percent Auto 59.8 % (45.5-73.1); Platelet Count Result 262 k/mm3 (150-375); Red Blood Count 4.39 M/mm3 (4.2-5.4); Red Cell Distribution Width 16.9 % (11.5-14.5); White Blood Count 5.4 K/mm3 (4.5-10.0)
[2025-02-19 12:50] LABS: Add Urine Microscopic? YES; Appearance Urine Cloudy (Clear); Bacteria Urine None Seen /hpf; Bilirubin Urine Negative (Negative); Blood Urine Negative (Negative); Color Urine Yellow (Yellow); Glucose Urine UA Negative (Negative); Ketones Urine Negative (Negative); Leukocyte Esterase Ur Negative LEU/UL (Negative); Nitrate Urine Negative (Negative); Non Pathogenic Casts 0-2; Protein Urine Negative (Negative); RBC Urine 0-2 /hpf (0-2); Squamous Epithelial Cell Urine None Seen /hpf (Few); Urobilinogen Urine 0.2 mg/dL (<2.0); WBC Urine 0-5 /hpf (0-3)
[2025-02-19 13:04] LABS: Iron 33 ug/dL (37-170)
[2025-02-19 13:14] LABS: Percent Iron Saturation 7 % (20-50)
[2025-02-19 13:22] LABS: Alanine Aminotransferase 12 U/L (6-35); Albumin Level 4.5 g/dL (3.5-5.1); Alkaline Phosphatase 41 U/L (38-126); Anion Gap 14 mmol/L (4-12); Aspartate Amino Transferase 23 U/L (14-36); Bilirubin,Total 0.5 mg/dL (0.2-1.3); Blood Urea Nitrogen 10 mg/dL (7-17); Calcium 9.4 mg/dL (8.4-10.2); Carbon Dioxide 25 mmol/L (22-30); Chloride 101 mmol/L (98-107); Cholesterol 209 mg/dL (0-200); Estimated Glomerular Filt Rate > 60; Glucose 94 mg/dL (65-110); HDL Direct 68 mg/dL; Potassium 4.3 mmol/L (3.4-5.0); Sodium 140 mmol/L (137-145); Total Protein 8.1 g/dL (6.3-8.2); Triglycerides 81 mg/dL (<150)
[2025-02-19 13:23] LABS: Free T4 Free Thyroxine 1.37 ng/dL (0.78-2.19)
[2025-02-19 13:32] LABS: Anisocytosis 1+; Hypochromasia 1+; Platelet Estimate Adequate (Adequate); Schistocytes None Seen
[2025-02-19 13:33] LABS: LDL Cholesterol Direct 93 mg/dL; Ovalocytes 1+
[2025-02-19 13:34] LABS: Atypical Lymphocytes Present
[2025-02-19 14:00] LABS: Thyroid Stimulating Hormone 0.604 uIU/mL (0.465-4.680); Total Triiodothyronine (T3) 1.13 NG/ML (0.82-1.58)
[2025-02-19 14:01] LABS: Hemoglobin A1C 5.1 % (<5.7)
== END 2025-02-19 12:17 | disposition home or self-care (01) ==
LOC: ANHLAB 12:17
PROVIDERS: PCP Nurse Practitioner Family; Visit Provider Nurse Practitioner Family
DX: Z00.00 Encounter for general adult medical examination without abnormal findings (principal); Z13.1 Encounter for screening for diabetes mellitus; Z13.6 Encounter for screening for cardiovascular disorders; R79.89 Other specified abnormal findings of blood chemistry; D50.9 Iron deficiency anemia, unspecified; D64.9 Anemia, unspecified; E53.8 Deficiency of other specified B group vitamins
CPT/HCPCS: 36415; 80053; 80061; 81001; 82607; 82728; 83036; 83540; 83550; 84439; 84443; 84480; 85025

== ENCOUNTER 2025-02-20 12:22 | Outpatient (CLI) | payer OTHER, MEDICAID, SELFPAY ==
--- NOTE | ~2025-02-20 | US_ITS ---
EXAMINATION: US thyroid DATE: 02/20/2025 13:04 INDICATION: Abnormal thyroid function testing TECHNIQUE: Multiple ultrasound images of the thyroid were obtained. COMPARISON: None. FINDINGS: The right thyroid lobe measures 5.6 x 2.1 x 2.2 cm. Within the upper pole of the right lobe of the thyroid gland is a 8.8 x 7.6 x 9.1 mm nodule: Composition -cystic Echogenicity -anechoic Shape - wider than tall Margin - smooth Echogenic foci - none. = TR 1, benign Within the upper pole of the right lobe of the thyroid gland is a 25 x 16 x 23 mm nodule: Composition -spongiform Echogenicity -hyperechoic and isoechoic (1) Shape - wider than tall Margin - smooth Echogenic foci - none. = TR 1, benign The left thyroid lobe measures 4.7 x 1.7 x 1.8 cm. Within the lower pole of the left lobe of the thyroid gland is a 8.3 x 3.5 x 7.5 mm nodule: Composition -spongiform Echogenicity -hypoechoic (2) Shape - wider than tall Margin - smooth Echogenic foci - none. = TR 2, not suspicious The isthmus measures 0.5cm in anterior to posterior dimension. Within the isthmus of the thyroid gland is a 9.9 x 6.3 x 9.7 mm nodule: Composition - spongiform Echogenicity -isoechoic and hyperechoic (1) Shape - wider than tall Margin -indistinct Echogenic foci -punctate echogenic foci (3) = TR 4, moderately suspicious Greater than or equal to 1 cm, follow-up. Greater than or equal to 1.5 cm, FNA. There is otherwise normal echotexture and echogenicity throughout the remainder of the thyroid gland. No additional discrete nodules identified. Normal vascular flow is present. IMPRESSION: TR 1 and TR 2 nodules detected bilaterally, for which no follow-up is recommended. TR 4 nodule within the isthmus which does not meet size criteria for follow-up or FNA. While follow-up is not recommended (as per TIRADs criteria) it may be performed, at the discretion of the referring clinician. Reviewed, dictated and finalized at location A. IMPRESSION: TR 1 and TR 2 nodules detected bilaterally, for which no follow-up is recommend ed. TR 4 nodule within the isthmus which does not meet size criteria for follow-up or FNA. While follow-up is not recommended (as per TIRADs criteria) it may be performed , at the discretion of the referring clinician.
== END 2025-02-20 12:23 | disposition home or self-care (01) ==
PROVIDERS: PCP Nurse Practitioner Family; Visit Provider Nurse Practitioner Family
DX: R79.89 Other specified abnormal findings of blood chemistry (principal)
CPT/HCPCS: 76536

== ENCOUNTER 2025-06-09 14:17 | Outpatient (CLI) | payer MEDICAID, SELFPAY ==
--- OUTSIDE RECORDS SUMMARY | 2025-06-09 13:30 | XMS_ITS | Encounter Summary ---
Author Organization [facility] JESSICA Doyle 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 Name Role Phone Unavailable Primary Care Provider Unavailabl e Reason for Visit * Reason Comments Establish Care Encounter Details Date Type Department Care Team (Late st Contact Info) Description 06/09/2025 1:30 PM CDT Office Visit [facility] Oncology and Hematology - [place] [address] [facility] [address] [place] [address] Yaya Beverly MD [address] [facility] [address] [place] [address] Chronic anemia (Primary Dx) Social History Tobacco Use Types Packs/Day Years Used Date Smoking Tobacco: Never Smokeless Tobacco: Never Tobacco Cessation:Counseling Given: Not Answered Alcohol Use Standard Drinks/Week Comments Yes 0 (1 standard drink = 0.6 oz pur e alcohol) social Comments No Sex and Gender Information Value Date Recorded Sex Assigned at Not on file 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 Gender Identity Not on file Sexual Orientation Not on file 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 Not on file Not on file Not on file documented as of this encounter Last Filed Vital Signs Vital Sign Reading Time Taken Comments Blood Pressure 128/76 06/09/2025 1:40 PM CDT Pulse 65 06/09/2025 1:40 PM CDT Temperature 36.6 C (97.8 F) 06/09/2025 1:40 PM CDT Respiratory Rate 15 06/09/2025 1:40 PM CDT Oxygen Saturation 99% 06/09/2025 1:40 PM CDT Inhaled Oxygen Concentration - - Weight 96.8 kg (213 lb 6.4 oz) 06/09/2025 1:40 P M CDT Height 167.6 cm (5' 6) 06/09/2025 1:40 PM CDT Body Mass Index 34.44 06/09/2025 1:40 PM CDT documented in this encounter Progress Notes * Yaya Beverly MD - 06/09/2025 1:45 PM CDT Hematology-oncology consult Note Requesting Physician Primary Care Physician No primary care provider on file. Problem list Patient Active Problem List Diagnosis Code BMI 45.0-49.9, adult ([facility]) Z68.42 PCOS (polycystic ovarian syndrome) E28.2 Family history of DVT Z82.49 Mild intermittent asthma without complication J45.20 Morbid obesity ([facility]) E66.01 Previous TREATMENT ? Measurable Disease ? Reason for Visit Colin James is a 35 y.o. female who was referred for consultation for iron deficiency anemia. History of present illness This is a pleasant 35-year-old female with history of asthma and obesity status post gastric sleeve surgery done in 2020. She lost almost 100 pound weight since then. She became more anemicafter her last in 2022. She received iron infusion at that time. She used to donate bloodand the last time she donated blood was more than 5 years ago. She was taking oral iron but discontinued 6 months ago. She is quite tired and fatigued. Her menstrual bleeding last for about 5 days and 1 days usually heavy. She denies being a vegetarian. Denies any diarrhea and constipation. Her labs from January 2025 showed hemoglobin of 10.1 with a vitamin B12 354 iron 33 with iron saturation of 7%and ferritin of 5.4. She denies any other complaints. Past Medical History Past Medical History: Diagnosis Date Asthma PCOS (polycystic ovarian syndrome) dx 23 Vertigo Surgical History Past Surgical History: Procedure Laterality Date HX FOOT SURGERY Right 2013 HX SHOULDER SURGERY Right 2010, 2011 Medications Current Outpatient Medications Medication Sig Dispense Refill cyanocobalamin (VITAMIN B-12) 1,000 [address], Sub[address]ual [address] 1 Tablet (1,000 mcg) under tongue daily. 90 Tablet 2 albuterol sulfate 90 mcg/actuation metered powder inhaler Take by inhalation every 6 hours as needed . No current facility-administered medications for this visit. Allergies Allergies Allergen Reactions Dimenhydrinate Other (See Comments) Tingly all over Immunizations: Immunization History Administered Date(s) Administered Influenza Seasonal Unspecified Formulation IM 05/21/2017 Family History Family History Problem Relation Name Age of Onset Healthy Father Hypertension Mother Other Mother PE blood clot due to fracture, immobilizain Healthy Mother Healthy Brother Seizures Sister Other Sister MIGRAINES/SEIZRES Migraines Sister half Other Sister half MIGRAINES/seizures Alzheimer's Disease Maternal Grandfather Thyroid Disease Maternal Grandmother Heart Disease Maternal Grandmother Stroke Maternal Grandmother Pacemaker Paternal Grandfather Throat Cancer Paternal Grandfather THROAT Pacemaker Paternal Grandmother Heart Disease Paternal Grandmother No Known Problems Child No Known Problems Child No Known Problems Child SLE Neg Hx Bleeding Problem Neg Hx Breast Cancer Neg Hx Colon Cancer Neg Hx Lung Cancer Neg Hx Ovarian Cancer Neg Hx Social History Social History Tobacco Use Smoking status: Never Smokeless tobacco: Never Substance Use Topics Alcohol use: Yes Comment: social Review of Systems Constitutional: Patient did not mention fever; no night sweats; no anorexia; no weight loss; complain of tiredness and fatigue NEENT: Patient did not mention headache; no change in vision; no change in hearing; no sore throat;no dysphagia Respiratory: Patient did not mention shortness of breath; no pleuritic chest pain; no cough; no hemoptysis Cardiac: Patient did not mention cardiac-like chest pain; no palpitations; no orthopnea; no PND; noDOE Breasts: Patient did not mention tenderness; no masses GI: Patient did not mention abdominal pain; no nausea; no vomiting; no diarrhea; no hematochezia; no melena : Patient did not mention dysuria; no frequency; no hesitancy; no hematuria 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 No signs of infection or swelling. Eyes: PERRL, conjunctiva normal HEENT: Atraumatic, external ears normal, nose normal, oropharynx moist, no pharyngeal exudates. no sinus tenderness Neck- normal range of motion, no tenderness, supple Respiratory: No respiratory distress, normal breath sounds, no rales, no wheezing Cardiovascular: Normal rate, normal rhythm, no murmurs, no gallops, no rubs GI: Soft, nondistended, normal bowel sounds, nontender, no splenomegaly, no hepatomegaly, no mass, no rebound, no guarding : No costovertebral angle tenderness Musculoskeletal: No edema, no tenderness, no deformities. Back- no tenderness Integument: Well hydrated, no rash, Digits and nails inspection normal Lymphatic: No lymphadenopathy noted Neurologic: Alert & oriented x 3, CN 2-12 normal, normal motor function, normal sensory function, no focal deficits noted Psychiatric: Speech and behavior appropriate ? labs No results found for this or any previous visit (from the past 24 hours). Labs from February 19, 2025 showed hemoglobin 10.1 MCV 79.5 creatinine 0.6 B12 354 iron 33 saturation 7ferritin 5.4 Pathology ? Imaging & Other Studies Performance Status? Assessment / Plan: ? Iron deficiency anemia. Patient is a pleasant 35-year-old slightly obese female with history of asthma who had gastric sleeve surgery done in 2020 with almost 100 pound weight loss. She became more anemic after the last in 2022 and at that time she received iron infusion. She stopped taking oral iron 6 months ago. I have reviewed the labs and informed her that her anemia is secondary to iron deficiency and vitamin B12 deficiency likely secondary to the malabsorption status post gastric sleeve surgery as well as menstrual blood loss. We will order the workup that will include CBC with differential, CMP, soluble transferrin receptor, vitamin B12 and folic acid level and methylmalonic acid level. I instructed her to take iron 65 mg once a day. I will also order iron infusion. I will discuss the labs with her next week. I have answered all the questions to patient satisfaction. Vitamin B12 deficiency. This is also likely secondary to malabsorption. Will order vitamin B12 1000mcg sublingual. We will repeat vitamin B12 levels today as well. Asthma. Stable. She uses albuterol inhaler as needed. Thank you very much for allowing me to participate in Colin James's evaluation and management. Please feel free to contact if I can be of any further assistance in your patient???s care requiring hematology or oncology evaluation. Sincerely, ? ? Yaya Beverly M.D. cell TOBACCO COUNSELING She is not a tobacco/nicotine user. Yaya Beverly MD ,06/09/2025 2:31 PM ? Total time spent 60 minutes, two third of the total time spent counseling patient [id number]. CC:? documented in this encounter Plan of Treatment Upcoming Encounters Date Type Department Care Team (Late st Contact Info) Description 06/17/2025 4:30 PM CDT Telephone Check Up [facility] Oncology and Hematology - [place] [address] [facility] [address] [place] [id number] Yaya Beverly MD [address] [facility] [address] [place] [address] Scheduled Orders Name Type Priority Associated Diagnoses Orde r Schedule CBC WITH DIFFERENTIAL Lab Stat Chronic anemia Expected: 06/09/2025, Expires: 06/09/2026 COMPREHENSIVE METABOLIC PANEL Lab Stat Chronic anemia Expected: 06/09/2025, Expires: 06/09/2026 FERRITIN Lab Routine Chronic anemia Expected: 06/09/2025, Expires: 06/09/2026 IRON, TIBC, AND PERCENT SATURATION Lab Routine Chronic anemia Expected: 06/09/2025, Expires: 06/09/2026 METHYLMALONIC ACID Lab Routine Chronic anemia Expected: 06/09/2025, Expires: 06/09/2026 VITAMIN B12 AND FOLATE Lab Routine Chronic anemia Expected: 06/09/2025, Expires: 06/09/2026 TRANSFERRIN RECEPTOR TFR SOLUBLE Lab Routine Chronic anemia Expected: 06/09/2025, Expires: 06/09/2026 documented as of this encounter Visit Diagnoses Diagnosis Chronic anemia- Primary Anemia, unspecified documented in this encounter
[2025-06-09 14:32] LABS: Hematocrit 35.6 % (37.0-47.0); Hemoglobin 10.8 g/dL (12.0-15.0); Immature Granulocyte Percent A 0.2 % (0-0.5); Lymphocytes Absolute Auto 1.25 K/mm3 (0.9-3.2); Mean Corpuscular HGB Conc 30.3 g/dl (32-36); Mean Corpuscular Hemoglobin 24.9 pg (26-34); Mean Corpuscular Volume 82.2 fl (80-100); Nucleated Red Blood Cells Absolute Auto 0.000 K/mm3 (0.0-0.012); Nucleated Red Blood Cells Perc 0.0 % (0.0-0.2); Platelet Count Result 289 k/mm3 (150-375); Red Blood Count 4.33 M/mm3 (4.2-5.4); White Blood Count 4.4 K/mm3 (4.5-10.0)
--- OUTSIDE RECORDS SUMMARY | 2025-06-09 16:14 | XMS_ITS | Data Portability ---
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 Discussed plan. [email or web address] Not available 10/12/2022 17:12:48 01/03/2023 01/03/2023 Patient is _27__weeks . Discussed plan. [email or web address] Not available 01/03/2023 18:07:09 Plan of Treatment Reminders Order Date Submit Date Provider Last Modified By Organization Details Last Modified Time Details Appointments None recorded. Lab None recorded. Referral None recorded. Procedures None recorded. Surgeries None recorded. Imaging US, obstetric, nuchal translucenc y [address] [facility], [address], [address], [place], [address], 19:47:06 Medication Orders ondansetron 4 mg disintegrat ing tablet 2022 023 [id number], [address], [place], [address], 18:09:18 Patient TargetsNo targets recorded. Patient InstructionsNo [...] as clini chanel warra nted. Not Available [facility] (Lab) [address], [place], [address], 08/22/2022 12:56:56 08/16/20 22 08/16/2022 TRICH OMONA S VAGIN DENI (RRNA ) trichomonas vaginalis ribosomal RNA (rrna) Negati ve negati ve Not Available [facility] (Lab) [address], [place], [address], 08/22/2022 12:56:57 08/16/20 22 08/16/2022 CT/GC (MARISSA) , THINP REP VIAL chlamydia trachomatis, PCR Negati ve negati ve Not Available [facility] (Lab) [address], [place], [address], 08/22/2022 12:56:57 08/16/20 22 08/16/2022 CT/GC (MARISSA) , THINP REP VIAL neisseria gonorrhoeae, PCR Negati ve negati ve Not Available [facility] (Lab) [address], [place], [address], 08/22/2022 12:56:57 09/11/19 23 09/11/2022 CBC W/DIF F WBC 6.7 10'3/ uL 3.6-10 .2 Not Available [facility] (Lab) [address], [place], [address], 09/12/2022 12:05:34 09/11/19 23 09/11/2022 CBC W/DIF F RBC 3.78 10'6/ uL (based on docume nted legal sex) 4.10-5 .30 low Not Available [facility] (Lab) [address], [place], [address], 09/12/2022 12:05:34 09/11/19 23 09/11/2022 CBC W/DIF F HGB 11.4 g/dL (based on docume nted legal sex) 11.9-1 5.8 low Not Available [facility] (Lab) [address], [place], [address], 09/12/2022 12:05:34 09/11/19 23 09/11/2022 CBC W/DIF F HCT 34.6 % (based on docume nted legal sex) 37.4-4 8.3 low Not Available [facility] (Lab) [address], [place], [address], 09/12/2022 12:05:34 09/11/19 23 09/11/2022 CBC W/DIF F MCV 91.5 fL 82.0-9 9.0 Not Available [facility] (Lab) [address], [place], [address], 09/12/2022 12:05:34 09/11/19 23 09/11/2022 CBC W/DIF F MCH 30.2 pg 27.0-3 3.0 Not Available [facility] (Lab) [address], [place], [address], 09/12/2022 12:05:34 09/11/19 23 09/11/2022 CBC W/DIF F MCHC 32.9 g/dL 32.0-3 6.0 Not Available [facility] (Lab) [address], [place], [address], 09/12/2022 12:05:34 09/11/19 23 09/11/2022 CBC W/DIF F RDW 12.7 % 11.0-1 5.0 Not Available [facility] (Lab) [address], [place], [address], 09/12/2022 12:05:34 09/11/19 23 09/11/2022 CBC W/DIF F plt 259 10'3/ uL 150-45 0 Not Available [facility] (Lab) [address], [place], [address], 09/12/2022 12:05:34 09/11/19 23 09/11/2022 CBC W/DIF F MPV 9.8 fL 9.8-12 .7 Not Available [facility] (Lab) [address], [place], [address], 09/12/2022 12:05:34 09/11/19 23 09/11/2022 CBC W/DIF F NRBC's 0.0 % 0 Not Available [facility] (Lab) [address], [place], [address], 09/12/2022 12:05:34 09/11/19 23 09/11/2022 CBC W/DIF F absolute NRBCs 0.0 10'3/ uL 0 Not Available [facility] (Lab) [address], [place], [address], 09/12/2022 12:05:34 09/11/19 23 09/11/2022 CBC W/DIF F neutrophils 71.8 % 37.0-7 2.0 Not Available [facility] (Lab) [address], [place], [address], 09/12/2022 12:05:34 09/11/19 23 09/11/2022 CBC W/DIF F lymphocytes 20.7 % 16.0-4 8.0 Not Available [facility] (Lab) [address] [place], [address], 09/12/2022 12:05:34 09/11/19 23 09/11/2022 CBC W/DIF F monocytes 6.0 % 4.0-14 .0 Not Available [facility] (Lab) [address], [place], [address], 09/12/2022 12:05:34 09/11/19 23 09/11/2022 CBC W/DIF F eosinophils 0.9 % 0.0-9. 0 Not Available [facility] (Lab) [address], [place], [address], 09/12/2022 12:05:34 09/11/19 23 09/11/2022 CBC W/DIF F basophils 0.3 % 0.0-2. 0 Not Available [facility] (Lab) [address], [place], [address], 09/12/2022 12:05:34 09/11/19 23 09/11/2022 CBC W/DIF F immature granulocytes 0.3 % no define d refere nce range Not Available [facility] (Lab) [address], [place], [address], 09/12/2022 12:05:34 09/11/19 23 09/11/2022 CBC W/DIF F absolute neutrophils 4.8 10'3/ uL 1.1-6. 0 Not Available [facility] (Lab) [address] [place], [address], 09/12/2022 12:05:34 09/11/19 23 09/11/2022 CBC W/DIF F absolute lymphocytes 1.4 10'3/ uL 0.7-3. 4 Not Available [facility] (Lab) [address] [place], [address], 09/12/2022 12:05:34 09/11/19 23 09/11/2022 CBC W/DIF F absolute monocytes 0.4 10'3/ uL 0.3-1. 0 Not Available [facility] (Lab) [address], [place], [address], 09/12/2022 12:05:34 09/11/19 23 09/11/2022 CBC W/DIF F absolute eosinophils 0.1 10'3/ uL 0.0-0. 6 Not Available [facility] (Lab) [address], [place], [address], 09/12/2022 12:05:34 09/11/19 23 09/11/2022 CBC W/DIF F absolute basophils 0.0 10'3/ uL 0.0-0. 1 Not Available [facility] (Lab) [address], [place], [address], 09/12/2022 12:05:34 09/11/19 23 09/11/2022 CBC W/DIF [...] resul ts are expec sherrell. Not Available [facility] (Lab) [address], [place], [address], 09/12/2022 12:05:34 09/11/19 23 09/11/2022 HEMOG LOBIN [...] py >8.0% Actio sen allison Not Available [facility] (Lab) [address], [place], [address], 09/12/2022 12:05:35 09/11/19 23 09/11/2022 URIC ACID uric acid 3.4 mg/dL 2.3-6. 6 Not Available [facility] (Lab) [address], [place], [address], 09/12/2022 12:05:36 09/11/19 23 09/11/2022 CMP(C OMPRE HENSI VE METAB OLIC PANEL ) sodium 138 mmol/ L 133-14 6 Not Available [facility] (Lab) [address], [place], [address], 09/12/2022 12:05:36 09/11/19 23 09/11/2022 CMP(C OMPRE HENSI VE METAB OLIC PANEL ) potassium 3.8 mmol/ L 3.5-5. 1 Not Available [facility] (Lab) [address], [place], [address], 09/12/2022 12:05:36 09/11/19 23 09/11/2022 CMP(C OMPRE HENSI VE METAB OLIC PANEL ) chloride 101 mmol/ L 98-107 Not Available [facility] (Lab) [address], [place], [address], 09/12/2022 12:05:36 09/11/19 23 09/11/2022 CMP(C OMPRE HENSI VE METAB OLIC PANEL ) carbon dioxide 26 mmol/ L 21-31 Not Available [facility] (Lab) [address], [place], [address], 09/12/2022 12:05:36 09/11/19 23 09/11/2022 CMP(C OMPRE HENSI VE METAB OLIC PANEL ) anion gap 11 mmol/ L 4-13 Not Available [facility] (Lab) [address], [place], [address], 09/12/2022 12:05:36 09/11/19 23 09/11/2022 CMP(C OMPRE HENSI VE METAB OLIC PANEL ) blood urea nitrogen 11 mg/dL 7-[address] [facility] (Lab) [address], [place], [address], 09/12/2022 12:05:36 09/11/19 23 09/11/2022 CMP(C OMPRE HENSI VE METAB OLIC PANEL ) creatinine 0.49 mg/dL 0.60-1 .30 low Not Available [facility] (Lab) [address], [place], [address], 09/12/2022 12:05:36 09/11/19 23 09/11/2022 CMP(C OMPRE HENSI VE METAB OLIC PANEL ) egfrcr (CKD-epi 2020) >90 mL/mi n/1.7 3_m2 >=60 Not Available [facility] (Lab) [address], [place], [address], 09/12/2022 12:05:36 09/11/19 23 09/11/2022 CMP(C OMPRE HENSI VE METAB OLIC PANEL ) calcium 9.0 mg/dL 8.3-10 .5 Not Available [facility] (Lab) [address], [place], [address], 09/12/2022 12:05:36 09/11/19 23 09/11/2022 CMP(C OMPRE HENSI VE METAB OLIC PANEL ) glucose 83 mg/dL 70-100 Not Available [facility] (Lab) [address], [place], [address], 09/12/2022 12:05:36 09/11/19 23 09/11/2022 CMP(C OMPRE HENSI VE METAB OLIC PANEL ) protein, total 6.9 g/dL 6.4-8. 3 Not Available [facility] (Lab) [address], [place], [address], 09/12/2022 12:05:36 09/11/19 23 09/11/2022 CMP(C OMPRE HENSI VE METAB OLIC PANEL ) albumin 3.9 g/dL 3.5-5. 0 Not Available [facility] (Lab) [address], [place], [address], 09/12/2022 12:05:36 09/11/19 23 09/11/2022 CMP(C OMPRE HENSI VE METAB OLIC PANEL ) ALT 7 units /L 9-43 low Not Available [facility] (Lab) [address], [place], [address], 09/12/2022 12:05:36 09/11/19 23 09/11/2022 CMP(C OMPRE HENSI VE METAB OLIC PANEL ) alkaline phosphatase 26 units /L 34-104 low Not Available [facility] (Lab) [address], [place], [address], 09/12/2022 12:05:36 09/11/19 23 09/11/2022 CMP(C OMPRE HENSI VE METAB OLIC PANEL ) AST 10 units /L 13-39 low Not Available [facility] (Lab) [address], [place], [address], 09/12/2022 12:05:36 09/11/19 23 09/11/2022 CMP(C OMPRE HENSI VE METAB OLIC PANEL ) bilirubin, total 0.4 mg/dL 0.2-1. 2 Not Available [facility] (Lab) [address], [place], [address], 09/12/2022 12:05:36 09/11/19 23 09/11/2022 TSH, REFLE X FREE T4 TSH 0.42 uIU/m L 0.30-5 .33 Not Available [facility] (Lab) [address], [place], [address], 09/12/2022 12:05:37 09/11/19 23 09/11/2022 HEPAT ITIS C ANTIB NHUNG SCREE N, REFLE X TO CONFI RMATI ON hepatitis C antibody Non-re active non-re active Antib odies to HCV Not Detec sherrell, does not exclu de the possi bilit y of expos ure to HCV. Not Available [facility] (Lab) [address], [place], [address], 09/12/2022 12:05:37 09/11/19 23 09/11/2022 HEPAT ITIS B SURFA CE ANTIG EN hepatitis B surface antigen Non-re active non-re active This assay was perfo rmed using [employer] reage nts and test kits. Value s obtai tony with other assay metho ds or kits canno t be used inter mata eably . Not Available [facility] (Lab) [address], [place], [address], 09/12/2022 12:05:38 09/11/19 23 09/11/2022 HIV 1/2 ANTIG EN/AN TIBOD Y, REFLE X CONFI RMATI ON HIV antigen/anti body Nonrea ctive nonrea ctive HIV-1 antig en and HIV-1 /HIV- 2 antib odies were not detec sherrell. No labor atory evide nce of HIV infec tion. Not Available [facility] (Lab) [address], [place], [address], 09/12/2022 12:05:38 09/11/19 23 09/11/2022 RUBEL LA IGG ANTIB NHUNG, QUANT rubella antibodies, IgG Reacti ve reacti ve Not Available [facility] (Lab) [address], [place], [address], 09/12/2022 12:05:39 09/11/19 23 09/11/2022 RUBEL LA IGG ANTIB NHUNG, QUANT rubella antibodies, IgG quant 26.1 IU/mL >=10 Non-r eacti ve (Non- Immun e) <10 IU/mL React tamera (Immu ne) > or = 10 IU/mL Not Available [facility] (Lab) [address], [place], [address], 09/12/2022 12:05:39 09/11/19 23 09/11/2022 TYPE/ RH/SC REEN ABO/Rh type O POS Not Available [facility] (Lab) [address], [place], [address], 09/12/2022 12:05:39 09/11/19 23 09/11/2022 TYPE/ RH/SC REEN antibody screen NEG Not Available [facility] (Lab) [address], [place], [address], 09/12/2022 12:05:39 09/11/19 23 09/11/2022 TYPE/ RH/SC REEN exp date 2022 23:59 Not Available [facility] (Lab) [address], [place], [address], 09/12/2022 12:05:39 09/11/19 23 09/11/2022 PROTE IN/CR EATIN INE RATIO , URINE creatinine, urine 178.9 mg/dL R-No refer ence range estab lishe d for this assay Not Available [facility] (Lab) [address], [place], [address], 09/12/2022 12:05:40 09/11/19 23 09/11/2022 PROTE IN/CR EATIN INE RATIO , URINE protein, urine 11 mg/dL R-No refer ence range estab lishe d for this assay Not Available [facility] (Lab) [address] [place], [address], 09/12/2022 12:05:40 09/11/19 23 09/11/2022 PROTE IN/CR [...] fican t prote inuri a. Not Available [facility] (Lab) [address], [place], [address], 09/12/2022 12:05:40 09/11/19 23 09/11/2022 RPR SCREE N/REF ERICA TITER /FTA RPR screen Nonrea ctive nonrea ctive Not Available [facility] (Lab) [address], [place], [address], 09/12/2022 12:05:40 09/11/19 23 09/11/2022 CULTU RE: URINE result report SEE RESULT S BELOW Test: Cultu re: Urine Speci men Sourc e: Urine Voide d Speci men Type: Urine Speci men Date: 2022 3:39 PM Resul t Date: 2022 6:57 AM Resul t Statu s: Final resul t Abnor mal: No Resul ting Lab: [facility] [address] [address] Tel: CULTU RE ----- ----- ----- --- Cultu re resul t (>=3 organ isms prese nt) indic ates possi ble conta minat ion. Repea t cultu re if sympt oms indic ate. Not Available [facility] (Lab) [address], [place], [address], 09/13/2022 08:01:08 09/11/1909/11/2022 drug scree n, urine Amphetamines : negati ve Not Available [facility] [address], [place], [address], 09/11/2022 15:16:06 09/11/19 23 09/11/2022 drug scree n, urine Cannabinoids : negati ve Not Available [facility] [address], [place], [address], 09/11/2022 15:16:06 09/11/19 23 09/11/2022 drug scree n, urine Opiates: negati ve Not Available [facility] [address], [place], [address], 09/11/2022 15:16:06 09/11/19 23 09/11/2022 drug scree n, urine Benzodiazepi sophia: negati ve Not Available [facility] [address], [place], [address], 09/11/2022 15:16:06 12/07/19 23 12/06/2022 GTT - GESTA HERMELINDO L SCREE N, ACOG OB glucose, 1 hour screen 70 mg/dL 70-[address] [facility] (Lab) [address] [place], [address], 12/07/2022 03:36:20 12/07/19 23 12/06/2022 CBC W/DIF F WBC 5.0 10'3/ uL 3.6-10 .2 Not Available [facility] (Lab) [address] [place], [address], 12/07/2022 03:36:21 12/07/19 23 12/06/2022 CBC W/DIF F RBC 3.21 10'6/ uL (based on docume nted legal sex) 4.10-5 .30 low Not Available [facility] (Lab) [address] [place], [address], 12/07/2022 03:36:21 12/07/19 23 12/06/2022 CBC W/DIF F HGB 9.1 g/dL (based on docume nted legal sex) 11.9-1 5.8 low Not Available [facility] (Lab) [address] [place], [address], 12/07/2022 03:36:21 12/07/19 23 12/06/2022 CBC W/DIF F HCT 29.7 % (based on docume nted legal sex) 37.4-4 8.3 low Not Available [facility] (Lab) [address], [place], [address], 12/07/2022 03:36:21 12/07/19 23 12/06/2022 CBC W/DIF F MCV 92.5 fL 82.0-9 9.0 Not Available [facility] (Lab) [address], [place], [address], 12/07/2022 03:36:21 12/07/19 23 12/06/2022 CBC W/DIF F MCH 28.3 pg 27.0-3 3.0 Not Available [facility] (Lab) [address], [place], [address], 12/07/2022 03:36:21 12/07/19 23 12/06/2022 CBC W/DIF F MCHC 30.6 g/dL 32.0-3 6.0 low Not Available [facility] (Lab) [address], [place], [address], 12/07/2022 03:36:21 12/07/19 23 12/06/2022 CBC W/DIF F RDW 13.7 % 11.0-1 5.0 Not Available [facility] (Lab) [address], [place], [address], 12/07/2022 03:36:21 12/07/19 23 12/06/2022 CBC W/DIF F plt 226 10'3/ uL 150-45 0 Not Available [facility] (Lab) [address], [place], [address], 12/07/2022 03:36:21 12/07/19 23 12/06/2022 CBC W/DIF F MPV 9.7 fL 9.8-12 .7 low Not Available [facility] (Lab) [address], [place], [address], 12/07/2022 03:36:21 12/07/19 23 12/06/2022 CBC W/DIF F NRBC's 0.0 % 0 Not Available [facility] (Lab) [address], [place], [address], 12/07/2022 03:36:21 12/07/19 23 12/06/2022 CBC W/DIF F absolute NRBCs 0.0 10'3/ uL 0 Not Available [facility] (Lab) [address], [place], [address], 12/07/2022 03:36:21 12/07/19 23 12/06/2022 CBC W/DIF F neutrophils 70.4 % 37.0-7 2.0 Not Available [facility] (Lab) [address], [place], [address], 12/07/2022 03:36:21 12/07/19 23 12/06/2022 CBC W/DIF F lymphocytes 19.6 % 16.0-4 8.0 Not Available [facility] (Lab) [address], [place], [address], 12/07/2022 03:36:21 12/07/19 23 12/06/2022 CBC W/DIF F monocytes 8.2 % 4.0-14 .0 Not Available [facility] (Lab) [address], [place], [address], 12/07/2022 03:36:21 12/07/19 23 12/06/2022 CBC W/DIF F eosinophils 1.2 % 0.0-9. 0 Not Available [facility] (Lab) [address], [place], [address], 12/07/2022 03:36:21 12/07/19 23 12/06/2022 CBC W/DIF F basophils 0.2 % 0.0-2. 0 Not Available [facility] (Lab) [address], [place], [address], 12/07/2022 03:36:21 12/07/19 23 12/06/2022 CBC W/DIF F immature granulocytes 0.4 % no define d refere nce range Not Available [facility] (Lab) [address], [place], [address], 12/07/2022 03:36:21 12/07/19 23 12/06/2022 CBC W/DIF F absolute neutrophils 3.5 10'3/ uL 1.1-6. 0 Not Available [facility] (Lab) [address], [place], [address], 12/07/2022 03:36:21 12/07/19 23 12/06/2022 CBC W/DIF F absolute lymphocytes 1.0 10'3/ uL 0.7-3. 4 Not Available [facility] (Lab) [address], [place], [address], 12/07/2022 03:36:21 12/07/19 23 12/06/2022 CBC W/DIF F absolute monocytes 0.4 10'3/ uL 0.3-1. 0 Not Available [facility] (Lab) [address], [place], [address], 12/07/2022 03:36:21 12/07/19 23 12/06/2022 CBC W/DIF F absolute eosinophils 0.1 10'3/ uL 0.0-0. 6 Not Available [facility] (Lab) [address], [place], [address], 12/07/2022 03:36:21 12/07/19 23 12/06/2022 CBC W/DIF F absolute basophils 0.0 10'3/ uL 0.0-0. 1 Not Available [facility] (Lab) [address], [place], [address], 12/07/2022 03:36:21 12/07/19 23 12/06/2022 CBC W/DIF [...] resul ts are expec sherrell. Not Available [facility] (Lab) [address], [place], [address], 12/07/2022 03:36:21 12/07/19 23 12/06/2022 TSH, REFLE X FREE T4 TSH 0.73 uIU/m L 0.30-5 .33 Not Available [facility] (Lab) [address], [place], [address], 12/07/2022 03:36:22 12/15/19 23 12/14/2022 CBC W/DIF F WBC 5.3 10'3/ uL 3.6-10 .2 Not Available [facility] (Lab) [address], [place], [address], 12/15/2022 03:22:56 12/15/19 23 12/14/2022 CBC W/DIF F RBC 3.19 10'6/ uL (based on docume nted legal sex) 4.10-5 .30 low Not Available [facility] (Lab) [address], [place], [address], 12/15/2022 03:22:56 12/15/19 23 12/14/2022 CBC W/DIF F HGB 9.4 g/dL (based on docume nted legal sex) 11.9-1 5.8 low Not Available [facility] ([facility]) [address], [place], [address], 12/15/2022 03:22:56 12/15/19 23 12/14/2022 CBC W/DIF F HCT 29.5 % (based on docume nted legal sex) 37.4-4 8.3 low Not Available [facility] (Lab) [address], [place], [address], 12/15/2022 03:22:56 12/15/19 23 12/14/2022 CBC W/DIF F MCV 92.5 fL 82.0-9 9.0 Not Available [facility] (Lab) [address], [place], [address], 12/15/2022 03:22:56 12/15/19 23 12/14/2022 CBC W/DIF F MCH 29.5 pg 27.0-3 3.0 Not Available [facility] (Lab) [address], [place], [address], 12/15/2022 03:22:56 12/15/19 23 12/14/2022 CBC W/DIF F MCHC 31.9 g/dL 32.0-3 6.0 low Not Available [facility] (Lab) [address], [place], [address], 12/15/2022 03:22:56 12/15/19 23 12/14/2022 CBC W/DIF F RDW 13.5 % 11.0-1 5.0 Not Available [facility] (Lab) [address], [place], [address], 12/15/2022 03:22:56 12/15/19 23 12/14/2022 CBC W/DIF F plt 229 10'3/ uL 150-45 0 Not Available [facility] (Lab) [address], [place], [address], 12/15/2022 03:22:56 12/15/19 23 12/14/2022 CBC W/DIF F MPV 9.9 fL 9.8-12 .7 Not Available [facility] (Lab) [address], [place], [address], 12/15/2022 03:22:56 12/15/19 23 12/14/2022 CBC W/DIF F NRBC's 0.0 % 0 Not Available [facility] (Lab) [address] [facility], [place], [address], 12/15/2022 03:22:56 12/15/19 23 12/14/2022 CBC W/DIF F absolute NRBCs 0.0 10'3/ uL 0 Not Available [facility] (Lab) [address], [place], [address], 12/15/2022 03:22:56 12/15/19 23 12/14/2022 CBC W/DIF F neutrophils 74.7 % 37.0-7 2.0 high Not Available [facility] (Lab) [address] [facility], [place], [address], 12/15/2022 03:22:56 12/15/19 23 12/14/2022 CBC W/DIF F lymphocytes 17.1 % 16.0-4 8.0 Not Available [facility] (Lab) [address] [facility], [place], [address], 12/15/2022 03:22:56 12/15/19 23 12/14/2022 CBC W/DIF F monocytes 7.2 % 4.0-14 .0 Not Available [facility] (Lab) [address] [facility], [place], [address], 12/15/2022 03:22:56 12/15/19 23 12/14/2022 CBC W/DIF F eosinophils 0.6 % 0.0-9. 0 Not Available [facility] (Lab) [address] [place], [address], 12/15/2022 03:22:56 12/15/19 23 12/14/2022 CBC W/DIF F basophils 0.2 % 0.0-2. 0 Not Available [facility] (Lab) [address] [facility], [place], [address], 12/15/2022 03:22:56 12/15/19 23 12/14/2022 CBC W/DIF F immature granulocytes 0.2 % no define d refere nce range Not Available [facility] (Lab) [address], [place], [address], 12/15/2022 03:22:56 12/15/19 23 12/14/2022 CBC W/DIF F absolute neutrophils 4.0 10'3/ uL 1.1-6. 0 Not Available [facility] (Lab) [address], [place], [address], 12/15/2022 03:22:56 12/15/19 23 12/14/2022 CBC W/DIF F absolute lymphocytes 0.9 10'3/ uL 0.7-3. 4 Not Available [facility] (Lab) [address], [place], [address], 12/15/2022 03:22:56 12/15/19 23 12/14/2022 CBC W/DIF F absolute monocytes 0.4 10'3/ uL 0.3-1. 0 Not Available [facility] (Lab) [address], [place], [address], 12/15/2022 03:22:56 12/15/19 23 12/14/2022 CBC W/DIF F absolute eosinophils 0.0 10'3/ uL 0.0-0. 6 Not Available [facility] (Lab) [address], [place], [address], 12/15/2022 03:22:56 12/15/19 23 12/14/2022 CBC W/DIF F absolute basophils 0.0 10'3/ uL 0.0-0. 1 Not Available [facility] (Lab) [address], [place], [address], 12/15/2022 03:22:56 12/15/19 23 12/14/2022 CBC W/DIF [...] resul ts are expec sherrell. Not Available [facility] (Lab) [address], [place], [address], 12/15/2022 03:22:56 12/15/19 23 12/14/2022 CMP(C OMPRE HENSI VE METAB OLIC PANEL ) sodium 139 mmol/ L 133-14 6 Not Available [facility] (Lab) [address], [place], [address], 12/15/2022 03:22:57 12/15/19 23 12/14/2022 CMP(C OMPRE HENSI VE METAB OLIC PANEL ) potassium 3.7 mmol/ L 3.5-5. 1 Not Available [facility] (Lab) [address], [place], [address], 12/15/2022 03:22:57 12/15/19 23 12/14/2022 CMP(C OMPRE HENSI VE METAB OLIC PANEL ) chloride 106 mmol/ L 98-107 Not Available [facility] (Lab) [address] [place], [address], 12/15/2022 03:22:57 12/15/19 23 12/14/2022 CMP(C OMPRE HENSI VE METAB OLIC PANEL ) carbon dioxide 25 mmol/ L 21-31 Not Available [facility] (Lab) [address] [place], [address], 12/15/2022 03:22:57 12/15/19 23 12/14/2022 CMP(C OMPRE HENSI VE METAB OLIC PANEL ) anion gap 8 mmol/ L 4-13 Not Available [facility] (Lab) [address] [place], [address], 12/15/2022 03:22:57 12/15/19 23 12/14/2022 CMP(C OMPRE HENSI VE METAB OLIC PANEL ) blood urea nitrogen 9 mg/dL 7-[address] [facility] (Lab) [address], [place], [address], 12/15/2022 03:22:57 12/15/19 23 12/14/2022 CMP(C OMPRE HENSI VE METAB OLIC PANEL ) creatinine 0.54 mg/dL 0.60-1 .30 low Not Available [facility] (Lab) [address], [place], [address], 12/15/2022 03:22:57 12/15/19 23 12/14/2022 CMP(C OMPRE HENSI VE METAB OLIC PANEL ) egfrcr (CKD-epi 2020) >90 mL/mi n/1.7 3_m2 >=60 Not Available [facility] (Lab) [address], [place], [address], 12/15/2022 03:22:57 12/15/19 23 12/14/2022 CMP(C OMPRE HENSI VE METAB OLIC PANEL ) calcium 8.4 mg/dL 8.3-10 .5 Not Available [facility] (Lab) [address] [place], [address], 12/15/2022 03:22:57 12/15/19 23 12/14/2022 CMP(C OMPRE HENSI VE METAB OLIC PANEL ) glucose 111 mg/dL 70-100 high Not Available [facility] (Lab) [address] [place], [address], 12/15/2022 03:22:57 12/15/19 23 12/14/2022 CMP(C OMPRE HENSI VE METAB OLIC PANEL ) protein, total 6.2 g/dL 6.4-8. 3 low Not Available [facility] (Lab) [address] [place], [address], 12/15/2022 03:22:57 12/15/19 23 12/14/2022 CMP(C OMPRE HENSI VE METAB OLIC PANEL ) albumin 3.4 g/dL 3.5-5. 0 low Not Available [facility] (Lab) [address], [place], [address], 12/15/2022 03:22:57 12/15/19 23 12/14/2022 CMP(C OMPRE HENSI VE METAB OLIC PANEL ) ALT 7 units /L 9-43 low Not Available [facility] (Lab) [address], [place], [address], 12/15/2022 03:22:57 12/15/19 23 12/14/2022 CMP(C OMPRE HENSI VE METAB OLIC PANEL ) alkaline phosphatase 34 units /L 34-104 Not Available [facility] (Lab) [address], [place], [address], 12/15/2022 03:22:57 12/15/19 23 12/14/2022 CMP(C OMPRE HENSI VE METAB OLIC PANEL ) AST 11 units /L 13-39 low Not Available [facility] (Lab) [address], [place], [address], 12/15/2022 03:22:57 12/15/19 23 12/14/2022 CMP(C OMPRE HENSI VE METAB OLIC PANEL ) bilirubin, total 0.4 mg/dL 0.2-1. 2 Not Available [facility] (Lab) [address] [place], [address], 12/15/2022 03:22:57 12/15/19 23 12/14/2022 VITAM IN B12 / FOLAT E PANEL vitamin B12 176 pg/mL 180-91 4 low Ema l Range : 180-9 14 pg/mL . Indet ermin ate Range : 145-1 80 pg/mL . Defic ient Range : <=145 pg/mL . Not Available [facility] (Lab) [address], [place], [address], 12/15/2022 03:22:57 12/15/19 23 12/14/2022 VITAM IN B12 / FOLAT E PANEL folate, serum 19.4 NG/mL 6.0-20 .0 Not Available [facility] (Lab) [address], [place], [address], 12/15/2022 03:22:57 12/15/19 23 12/14/2022 VITAM IN D, 25-OH (TOTA L D2/D3 ) vitamin D, 25-hydroxy, total 14.6 NG/mL 30.0-1 00.0 low Sugge stive of Defic iency : <20 ng/mL Sugge stive of Insuf ficie ncy: 20-29 ng/mL Sugge stive of Suffi cienc y: 30-10 0 ng/mL Sugge stive of Toxic ity: >150 ng/mL Not Available [facility] (Lab) [address], [place], [address], 12/15/2022 03:22:58 12/15/19 23 12/14/2022 MACIE TIN / IRON / TRANS MACIE N / TIBC iron 39 ug/dL 40-170 low Not Available [facility] (Lab) [address] [place], [address], 12/15/2022 03:22:58 12/15/19 23 12/14/2022 MACIE TIN / IRON / TRANS MACIE N / TIBC transferrin 414 mg/dL 200-36 0 high Not Available [facility] (Lab) [address] [place], [address], 12/15/2022 03:22:58 12/15/19 23 12/14/2022 MACIE TIN / IRON / TRANS MACIE N / TIBC ferritin 4.1 NG/mL 8.0-25 2.0 low Not Available [facility] (Lab) [address] [place], [address], 12/15/2022 03:22:58 12/15/19 23 12/14/2022 MACIE TIN / IRON / TRANS MACIE N / TIBC TIBC 580 ug/dL 250-45 0 high Not Available [facility] (Lab) [address], [place], [address], 12/15/2022 03:22:58 12/15/19 23 12/14/2022 MACIE TIN / IRON / TRANS MACIE N / TIBC iron saturation 7 % 20-55 low Not Available [facility] (Lab) [address], [place], [address], 12/15/2022 03:22:58 08/16/20 22 08/16/2022 imagi ng/di agnos tic resul t No observ ation record ed. BENNIE Guerra [address], [place], [address], 08/18/2022 11:05:39 09/11/19 23 09/11/2022 US, obste tric, nucha l trans lucen cy No observ ation record ed. [email or web address] [address], [place], [address], 09/11/2022 18:29:43 09/11/19 23 09/11/2022 US, obste tric, nucha l trans lucen cy No observ ation record ed. BENNIE Guerra [address], [place], [address], 09/12/2022 19:55:05 10/18/19 23 10/18/2022 US, obste tric, follo w-up No observ ation record ed. [email or web address] [facility] [address] [place], [address], 10/23/2022 11:07:08 10/18/19 23 10/18/2022 US, obste tric, follo w-up No observ ation record ed. [email or web address] [facility] [address], [address], 10/23/2022 11:08:08 11/18/19 23 11/17/2022 US, obste tric, follo w-up No observ ation record ed. [facility] [address], [address], 11/29/2022 19:13:38 11/18/19 23 11/17/2022 US, obste tric, follo w-up No observ ation record ed. [email or web address] [facility] [address], [address], 11/29/2022 19:13:26 11/18/19 23 11/17/2022 US, obste tric, follo w-up No observ ation record ed. [email or web address] [facility] [address], [address], 11/27/2022 10:38:29 12/19/19 23 12/18/2022 US, obste tric, follo w-up No observ ation record ed. [email or web address] [facility] [address], [address], 12/20/2022 14:52:02 12/19/1912/18/2022 US, obste tric, follo w-up No observ ation record ed. [email or web address] [facility] [address], [address], 12/20/2022 17:08:20 12/19/19 23 12/18/2022 US, obste tric, follo w-up No observ ation record ed. [facility] [address], [address], 12/19/2022 11:28:55 12/26/19 23 12/18/2022 norman r monit or No observ ation record ed. [email or web address] [facility] [address], [place], [address], 12/28/2022 18:21:57 01/27/20 23 01/26/2023 US, obste tric, follo w-up No observ ation record ed. [email or web address] [facility] [address], [place], [address], 01/29/2023 15:38:48 01/27/20 23 01/26/2023 US, obste tric, follo w-up No observ ation record ed. [facility] [address] [place], [address], 01/29/2023 17:55:36 02/27/20 23 02/26/2023 US, obste tric, follo w-up No observ ation record ed. [email or web address] [facility] [address] [place], [address], 03/09/2023 14:10:21 Result Notes None recorded. Problems Name Problem SNOMED Code Status Onset Date Resolution Date Notes Provider Name and Address Organization Details Recorded Time Vertebra l abnormal ities, anal atresia, cardiac abnormal ities, tracheo- esophage al fistula, renal anomalie s, limb defects syndrome 115290238 Active with this- has seen genetics , to get echo - MFM rec no risk to fetus Johana herrmann, [facility] 3 13:16:45 Anxiety in pregnanc y [id number] 9109 Active increase d lexapro to 20, not yet improvin g Johana herrmann, [facility] 3 13:16:44 History of sleeve gastrect blaise 5657122174 76876 Active MFM rec jelly madrid test instead of liquid, to see bariatri c team Feb Johana herrmann, [facility] 3 13:16:45 Vertebra l abnormal ities, anal atresia, cardiac abnormal ities, tracheo- esophage al fistula, renal anomalie s, limb defects syndrome 896461700 Completed with this- has seen genetics , to get echo - MFM rec no risk to fetus Johana herrmann, [facility] 3 13:16:45 Anxiety in pregnanc y 5342172305 9109 Completed increase d lexapro to 20, not yet improvin g Johana herrmann, [facility] 3 13:16:44 History of sleeve gastrect blaise 3284190363 96903 Completed MFM rec jelly madrid test instead of liquid, to see natalie diamond team Feb Johana herrmnan, [facility] 3 13:16:45 Asthma 827912136 Completed quiscent Johana chase [facility], [facility] 3 13:16:45 Hypoglyc emia 863830018 Completed borderli ne - precauti ons given [facility] 13:16:45 Vitamin B12 level below referenc e range 409263314 Completed B12 daily Johana herrmann, [facility] 3 13:16:44 Vitamin D deficien cy 03839618 Completed 1,000-2, 000 IUs daily [facility] [address] 13:16:[address] Concept Completed 201809/01/2020 Encntr for action installer exam (general ) (routine ) w/o abn findings ;Recorde d Elsewher e: No Locat ion: Daja sorto [facility] S ource: EHR Race Car Driver nava: N Practi ce ID: 0001 Geovani lable Time: 01:00:[address] [facility] 17:56:17 Pregnanc y detectio n examinat ion Completed 201809/01/2020 Encounte r for pregnanc y test, result positive ;Recorde d Elsewher e: No Locat ion: [facility] macario [facility] S ource: EHR Race Car Driver nava: N Practi ce ID: 0001 Geovani lable Time: 01:00:[address] [facility] 17:56:10 Antenata l screenin g Completed 201809/01/2020 Encounte r for antenata l screenin g for nuchal transluc ency;Rec orded Elsewher e: No Locat ion: [facility] S ource: EHR Race Car Driver nava: N Practi ce ID: 0001 Geovani lable Time: 10:30:[address] [facility] 17:55:23 Gestatio n period, 15 weeks 2506979 Completed 201809/01/2020 15 weeks gestatio n of pregnanc y;Record ed Elsewher e: No [facility] [employer] Driver nava: N Practi ce ID: 0001 Geovani lable Time: 12:30:[address] [facility] 17:55:27 Gestatio n period, 19 weeks 24092194 Completed 201809/01/2020 19 weeks gestatio n of pregnanc y;Record ed Elsewher e: No Locat ion: [facility] S ource: EHR Race Car Driver nava: N Practi ce ID: 0001 Geovani lable Time: 02:00:[address] [facility] 17:55:29 Antenata l screenin g for malforma tion Completed 201809/01/2020 Encounte r for antenata l screenin g for malforma tions;Re corded Elsewher e: No Locat ion: Daja sorto [facility] S ource: EHR Race Car Driver nava: N Practi ce ID: 0001 Geovani lable Time: 02:00:00 PM Fbaiana herrmann, [facility] 17:55:[address] Concept Completed 201809/01/2020 Maternal care for heredita ry disease in fetus, unsp;Rec orded Elsewher e: No [facility] S ource: EHR [employer] Car Driver nava: N Yfnti ce ID: 0001 Geovani lable Time: 10:45:00 AM Fabiana Benitez [facility], [facility] 17:55:42 Gestatio n period, 21 weeks 72329939 Completed 201809/01/2020 21 weeks gestatio n of pregnanc y;Record ed Elsewher e: No [facility] S ource: EHR Race Car Driver nava: N Practi ce ID: 0001 Geovani lable Time: 10:45:[address] [facility] 17:55:30 Gestatio n period, 24 weeks 612984779 Completed 201809/01/2020 24 weeks gestatio n of pregnanc y;Record ed Elsewher e: No [facility]: EHR Race Car Driver nava: N Practi ce ID: 0001 Geovani lable Time: 04:45:00 PM Fabiana herrmann, [facility] 17:55:31 Hypomagn esemia 847373038 Completed 201809/01/2020 Hypomagn esemia;P ractice ID: 0001 Fabiana Emmanuel [facility], [facility] 17:55:46 Supraven tricular tachycar yobany 5195253 Completed 201809/01/2020 Supraven tricular tachycar yobany;Prac conchita ID: 0001 Fabiana herrmann, [facility] 17:56:18 Palpitat ions 43757182 Completed 201809/01/2020 Palpitat ions;Pra ctice ID: 0001 Fabiana herrmann, [facility] 17:55:54 Gestatio n period, 30 weeks 72049894 Completed 201909/01/2020 30 weeks gestatio n of pregnanc y;Record ed Elsewher e: No Locat ion: [facility] S ource: EHR Race Car Driver nava: N Practi ce ID: 0001 Geovani lable Time: 04:45:00 PM Fabiana herrmann, [facility] 17:55:33 Severe obesity complica ting pregnanc y 3005326055 3320109 Completed 201909/01/2020 Obesity complica ting pregnanc y, unspecif ied trimeste r;Record ed Elsewher e: No Locat ion: [facility] S ource: EHR Race Car Driver nava: N Practi ce ID: 0001 Geovani lable Time: 04:45:00 PM Fabiana herrmann, [facility] 17:56:12 Gestatio n period, 32 weeks 4130421 Completed 201909/01/2020 32 weeks gestatio n of pregnanc y;Record ed Elsewher e: No Locat ion: [facility] S ource: EHR Race Car Driver nava: N Practi ce ID: 0001 Geovani lable Time: 03:00:[address] [facility] 17:55:[address] Concept Completed 201909/01/2020 Matern care for abnlt fetl hrt rate or rhym, 3rd tri, unsp;Rec orded Elsewher e: No Locat ion: [facility] S ource: EHR Race Car Driver nava: N Practi ce ID: 0001 Geovani lable Time: 11:30:[address] [facility] 17:56:15 Gestatio n period, 33 weeks 66889432 Completed 201909/01/2020 33 weeks gestatio n of pregnanc y;Record ed Elsewher e: No Locat ion: [facility] S ource: EHR Race Car Driver nava: N Practi ce ID: 0001 Geovani lable Time: 10:30:00 AM Fabiana herrmann, [facility] 17:55:35 Gestatio n period, 34 weeks [id number] Completed 201909/01/2020 34 weeks gestatio n of pregnanc y;Record ed Elsewher e: No Locat ion: [facility] S ource: EHR Race Car Driver nava: N Practi ce ID: 0001 Geovani lable Time: 01:45:[address] [facility] 17:55:37 Gestatio n period, 35 weeks [id number] Completed 201909/01/2020 35 weeks gestatio n of pregnanc y;Record ed Elsewher e: No Locat ion: [facility] S ource: EHR Race Car Driver nava: N Practi ce ID: 0001 Geovani lable Time: 01:00:[address] [facility] 17:55:38 Finding of trunk structur e Completed 201909/01/2020 Oth diseases and conditio ns compl preg/chl dbrth;Re corded Elsewher e: No Locat ion: [facility] S ource: EHR Race Car Driver nava: N Practi ce ID: 0001 Geovani lable Time: 01:00:00 PM Fabiana herrmann, [facility] 17:56:20 Disorder of biliary tract 312614212 Completed 201909/01/2020 Liver and biliary tract disord in pregnanc y, third trimeste r;Record ed Elsewher e: No Locat ion: Gabbyjohn macario [facility] S ource: EHR Race Car Driver nava: N Practi ce ID: 0001 Geovani lable Time: 11:30:00 AM Fabiana herrmann, [facility] 17:55:26 Liver disorder in pregnanc y - not delivere d 188793833 Completed 201909/01/2020 Liver and biliary tract disord in pregnanc y, third trimeste r;Record ed Elsewher e: No Locat ion: [facility] S ource: EHR Race Car Driver nava: N Yfnti ce ID: 0001 Geovani lable Time: 11:30:00 AM Fabiana herrmann, [facility] 17:55:49 Gestatio n period, 36 weeks [id number] Completed 201909/01/2020 36 weeks gestatio n of pregnanc y;Record ed Elsewher e: No Locat ion: [facility] S ource: EHR Race Car Driver nava: N Yfnti ce ID: 0001 Geovani lable Time: 11:30:00 AM Fabiana herrmann, [facility] 17:55:39 Normal pregnanc y in multigra tyson 2070680073 37091 Completed 201909/01/2020 Encounte r for supervis ion of other normal pregnanc y, 3rd trimeste r;Record ed Elsewher e: No Locat ion: [facility] S ource: EHR Race Car Driver nava: N Practi ce ID: 0001 Geovani lable Time: 03:00:00 PM Fabiana herrmann, [facility] 17:55:53 Lacerati on of female perineum Completed 201909/01/2020 First degree perineal lacerati on during delivery ;Practic e ID: 0001 Fabiana herrmann, [facility] 17:55:47 Single live from singleto n pregnanc y 285583550 Completed 201909/01/2020 Single live ;Pr actice ID: 0001 Fabiana herrmann, [facility] 17:56:14 Gestatio n period, 37 weeks 81772882 Completed 201909/01/2020 37 weeks gestatio n of pregnanc y;Practi ce ID: 0001 Fabiana herrmann, [facility] 17:55:40 Pre-ecla mpsia 632874870 Completed 201909/01/2020 Unspecif ied pre-ecla mpsia, complica ting the puerperi um;Pract ice ID: 0001 Fabiana herrmann, [facility] 17:55:56 Past pregnanc y history of gestatio nal trophobl astic disease 074398504 Completed 201909/01/2020 Personal history of comp of preg, chldbrth and the puerp;Pr actice ID: 0001 Fabiana herrmann, [facility] 17:55:44 Lochia finding Completed 201909/01/2020 Encounte r for routine postpart um follow-u p;Record ed Elsewher e: No Locat ion: Daja sorto [facility] S ource: EHR Race Car Driver nava: N Practi ce ID: 0001 Geovani lable Time: 11:45:[address] [facility] 17:55:51 Past pregnanc y history of pre-ecla mpsia 2210727030 22553 Active 2021 LD ASA 162 mg/day; with pulmonar y edema x2 Johana herrmann [facility] 3 13:16:44 Laparosc opic sleeve gastrect blaise Active 01/2021 Alison Dai MD [address], [place], [address], [facility] 2 13:18:17 Anxiety 97053190 Active 2021 Alison Dai MD [address], [place], [address], [facility] 2 13:18:39 Past pregnanc y history of pre-ecla mpsia 8441165100 36727 Completed 2021 LD ASA 162 mg/day; with pulmonar y edema x2 Johana herrmann [facility] 3 13:16:44 Pregnanc y 16412666 Completed 202203/02/[address] [facility] 3 13:16:49 Anemia 696432793 Completed 2022 1 tab slowfe bid- IV infusion referral faxed 12/[address] [facility] 3 13:16:44 Problem Notes None recorded. Procedures Surgical History Date Name Laterality Status Provider Name and Address Organization Details Recorded Time 1 Bariatric Surgery completed Jennifer Leon [facility] 11/07/2022 19:04:13 1 Date of Last Pap Smear completed Fabiana Benitez [facility] 09/01/2020 17:57:00 3 procedure on foot completed Jennifer Leon [facility] 11/07/2022 19:05:05 2 Shoulder joint surgery completed Jennifer Leon [facility] 11/07/2022 19:04:43 1 Shoulder joint surgery completed Jennifer Leon [facility] 11/07/2022 19:04:34 Imaging Results None recorded. Procedure Notes None recorded. Medical Equipment None Reported. Allergies Allergen ID Allergen Name Allergen Category Reaction Reaction Severity Criticality Documentation Date Start Date Code Code System Note Provider Name and Address Organization Details Recorded Time 2866 acetamino phen medicatio n Not available Not available Not available 07/28/2020 161 RxNorm Fabiana Benitez [address]tez [facility] 17:54:59 2867 dimenhydr inate medicatio n Not available Not available Not available 07/28/2020 3444 RxNorm Fabiana Benite[address] [facility] 17:54:57 2868 hydrocodo ne Not available Not available Not available Not available 07/28/2020 5489 RxNorm Fabiana Benitez [address]z [facility] 17:54:56 Medications Name Sig Start Date [...] Prescrib ed Elsewher e: No [facility] M odify By: bjorn todd DateTime : [...] Prescrib mk Odom e: Yes Loca tion: [facility] Brendon amaral By: [email or web address] Encounte r DateTime [...] completed Not Available Not Available Not Available [employer] 1.5 billion cell capsule TAKE 1 (ONE) CAPSULE BY MOUTH ONCE DAILY 04/14 completed Not Available Not Available Not Available Vitals Date Recorded Body height Body mass index (BMI) Body weight Systolic And Diastolic Provider Name and Address Organization Details Last Updated DateTime 09/11/2022 170.18 cm 30.2 kg/m2 02249.327 41 g 100/67 mm[Hg] [facility] 09/11/2022 15:10:56 Date Recorded Body height Body mass index (BMI) Body weight Systolic And Diastolic Provider Name and Address Organization Details Last Updated DateTime 10/12/2022 170.18 cm 31 kg/m2 12864.289 26 g 108/69 mm[Hg] [facility] 10/12/2022 17:12:55 Date Recorded Body height Body mass index (BMI) Body weight Systolic And Diastolic Provider Name and Address Organization Details Last Updated DateTime 11/06/2022 170.18 cm 32.3 kg/m2 49331.028 22 g 95/61 mm[Hg] Jennifer Leon [facility] 11/06/2022 15:14:37 Date Recorded Body height Body mass index (BMI) Body weight Systolic And Diastolic Provider Name and Address Organization Details Last Updated DateTime 12/04/2022 170.18 cm 32.4 kg/m2 71161.620 59 g 99/61 mm[Hg] Jennifer Leon [facility] 12/04/2022 14:35:02 Date Recorded Body height Body mass index (BMI) Body weight Systolic And Diastolic Provider Name and Address Organization Details Last Updated DateTime 01/03/2023 170.18 cm 32.7 kg/m2 00536.805 33 g 97/60 mm[Hg] Jennifer Leon [facility] 01/03/2023 17:52:15 Social History Question Answer Notes LastModified by Organizat ion Details LastModified Time Tobacco Smoking Status Never Smoker Jennifer Leon [facility] 01/03/2023 17:52:29 Do You Have An Advance Directive? No Information n ot available 04/14/2021 If You Are , What Was Your Level Of Alcohol Consumption Prior To ? Occasional [email or web address] Information not available 01/03/2023 How Many Years Have You Consumed Alcohol? 10 [email or web address] Information not available 04/14/2021 Are You Blind Or Do You Have Difficulty Seeing? No Information n ot available 04/14/2021 What Is Your Level Of Caffeine Consumption? Occasional [email or web address] Information not available 04/14/2021 How Much Tobacco Do You Chew? None [email or web address] Information not available 04/14/2021 In The 14 Days Before Symptom Onset, Have You Had Close Contact With A Laboratory-confirm ed COVID-19 While That Case Was Ill? No [email or web address] Information n ot available 04/14/2021 In The 14 Days Before Symptom Onset, Have You Had Close Contact With A Person Who Is Under Investigation For COVID-19 While That Person Was Ill? No [email or web address] Information not available 04/14/2021 Have You Been To An Area Known To Be High Risk For COVID-19? No Information not available 04/14/2021 Are You Deaf Or Do You Have Serious Difficulty Hearing? No [email or web address] Information not available 04/14/2021 What Type Of Diet Are You Following? SPECIFIC [email or web address] Information n ot available 04/14/2021 What Is The Highest Grade Or Level Of School You Have Completed Or The Highest Degree You Have Received? MN93772-2 [email or web address] Information not available 04/14/2021 Are There Any Guns Present In Your Home? Yes Information not available 04/14/2021 Do You Use Protection During Sex? Usually [email or web address] Information not available 01/03/2023 Do You Use Your Seat Belt Or Car Seat Routinely? Yes Information not available 04/14/2021 Do You Have Smoke And Carbon Monoxide Detectors In Your Home? Yes Information not available 04/14/2021 How Much Tobacco Do You Smoke? No [email or web address] Information not available 04/14/2021 Do You Use Sunscreen Routinely? Yes [email or web address] Information not available 04/14/2021 Have You Used IV Drugs? No [email or web address] Information not available 04/14/2021 Sex: Unknown Functional Status Question Answer Note LastModified by Organizat ion Details LastModified Time Do you use any illicit or recreational drugs? No [email or web address] Information not available 04/14/2021 What is your level of alcohol consumption? None [email or web address] Information not available 01/03/2023 Are you able to walk independently without assistance or assistive devices? 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 Moderate Information not available 04/14/2021 Mental Status Question Answer Note LastModified by Organization D etails LastModified Time Do you feel stressed (tense, restless, nervous, or anxious, or unable to sleep at night)? [id number] [email or web address] Information not available 01/03/2023 Family History Relationship Description Onset Age of this Age Resolved Age Notes LastModified by Organization Details LastModified Time Father Disorder of thyroid gland Not available 2020 15:31:06 Maternal Grandmother Disorder of thyroid gland [email or web address] Not available 2020 15:31:10 Mother Disorder of thyroid gland [email or web address] Not available 2020 15:31:13 Sister Seizure disorder [email or web address] Not available 2022 14:55:31 Medical History Condition [...] Diagnosis SNOMED-CT Code Diagnosis ICD10 Code Diagnosis IMO Codes Diagnosis Note [id number] Guerline Matthews CNM [facility] [address] [address] 09/02/2020 10:49:56 09/03/2020 12:35:04 Gynecologic examination 11359197 Z01.419 Take Calcium with Vitamin D 1200mg [...] desired. Mixed anxi ety and depressive disorder 515771399 F41.8 EPDS 15. No thoughts of harming herself or others. Discussed options and pt would like to start zoloft. Risks and benefits discussed. Precaution s given. I have also encouraged counselchauncey gKavon RTC in 2 weeks. Sooner if any problems. [id number] Guerline Matthews CNM [facility] [address],[place] [address] 09/30/2020 11:03:08 09/30/2020 11:56:03 Mixed anxiety and depressive disorder 510774550 F41.8 Doing much better. Plan to return for annual. If any worsening of symptoms or room for improvemen t she will come in to discuss further. [id number] Guerline Matthews CNM [address],[place] [address] 04/14/2021 15:10:15 04/22/2021 15:14:21 Mixed anxiety and depressive disorder 044726249 F41.8 Discussed medication options. Pt would like to switch to wellbutrin . Discussed weaning off of zoloft prior to starting wellbutrin . Pt verbalized understand ing. Will return 3-4 weeks after starting wellbutrin or sooner if any problems or concerns. Pt verbalized understand ing. [id number] Guerline Matthews CNM [facility] [address],[place] [address] 05/23/2021 14:50:27 05/23/2021 15:44:41 Mixed anxiety and depressive disorder 641474697 F41.8 Doing well. Still feeling anxious but libido has improved. Plan to increase to 300mg and RTC in 2 weeks. May need to consider med specifical ly geared towards anxiety. [id number] Guerline Matthews CNM [address],[place] [address] 06/13/2021 14:08:44 06/13/2021 14:48:56 Mixed anxiety and depressive disorder 754111937 F41.8 Doing much better with increased dose. Will send out refills. Plan to return for wwe. Sooner if any problems or concerns. [id number] Alison Dai MD [facility] [address],[place] [address] 08/16/2022 11:49:47 08/16/2022 18:44:15 [id number] Alison Dai MD [facility] [address],[place] [address] 08/16/2022 11:50:14 08/16/2022 14:10:47 test positive 237007020 Z32.01 Past pregn lyndsey history of pre-eclampsia 0996505277 20924 Z87.59 History of sleeve gastrectomy 1295261176 75267 Z90.3 Venereal d isease screening 853339391 Z11.3 Anxiety 68843048 F41.9 [id number] Alison Dai MD [facility] [address],[place] [address] 09/11/2022 14:24:04 09/11/2022 15:19:19 screening 188328838 Z36.82 [id number] Alison Dai MD [facility] [address],[place] [address] 09/11/2022 14:25:33 09/12/2022 16:12:56 Routine care 782732243 Z34.91 Anxiety in 744 4467316 9109 F41.9 Past pregn lyndsey history of pre-eclampsia 0346815036 17331 Z87.59 History of sleeve gastrectomy 3169361898 24320 Z90.3 [id number] Guerline Matthews CNM [facility] [address],[place] [address] 10/12/2022 17:09:20 10/13/2022 15:52:18 [id number] Guerline Matthews CNM [facility] [address],[place] [address] 11/06/2022 14:55:17 11/07/2022 17:32:23 Routine care 065304650 Z34.92 [id number] Guerline Matthews CNM [facility] [address] [address] 12/04/2022 14:03:42 12/05/2022 17:10:33 Routine care 989270430 Z34.92 [id number] Vanda Gomez CNM [facility] [address],[place] [address] 01/03/2023 16:54:48 01/04/2023 10:57:06 Routine care 229635716 Z34.92 Nausea and vomiting 1693 1999 R11.2 Health Concerns Section Related Observation LastModified by Organization Detai ls LastModified Time None Recorded Concern Status LastModified by Organization Details LastModified Time None Recorded Advance Directives Directive N: Payers Insurance Date Sequence Insurance Name Policy Number Policy Gamez Covered Member ID Gamez Member ID Guarantor Name 01/02/2023 1 [facility] PRIOR TO 02/24/2021 (MEDICAID REPLACEMENT - HMO) Shelbey Gassett [id number] Shelbey Gassett 01/02/2023 1 [facility] AFTER 02/24/21 (MEDICAID REPLACEMENT - HMO) Shelbey Gassett [id number] Shelbey Gassett Notes Date Note Type Note Provider Name and Address Organization Details Recorded Time 10/12/2022 text/html Generic HPI TemplateReported by Patient Jennifer herrmann, [facility] 10/30/2022 12:56:56 11/06/2022 text/html Generic HPI TemplateReported by Patient Guerline herrmann, [facility] 11/09/2022 10:55:17 12/04/2022 text/html Generic HPI TemplateReported by Patient Guerline herrmann, [facility] 12/05/2022 18:30:51 01/03/2023 text/html Generic HPI TemplateReported by Patient Vanda Gomez CNM [address], [place], [address], [facility] 01/03/2023 18:09:22 OBGyn Episode Ob Episode Information Episode Created Date Number of Fetuses Patient Bloodtype Patient rh Status Prepregnancy Weight lbs Domestic Partner Domestic Partner Phone Father Name Pot Filler Status 04/14/20 21 1 CLOSED Fetus Data First Name Last Name Admitted to NICU Weight (g) Sex Living Outcome Pediatric Complications Fetus ID Race Codes Race Delivery Type 3259.96 5704 M Full Term 99015 Vaginal Delivery Chris Calculation Initial Chris Date [...] Domestic Partner Domestic Partner Phone Father Name Pot Filler Status 04/14/20 21 1 CLOSED Fetus Data First Name Last Name Admitted to NICU Weight (g) Sex Living Outcome Pediatric Complications Fetus ID Race Codes Race Delivery Type 3572.03 7 F Full Term 16455 Vaginal Delivery Chris Calculation Initial Chris Date [...] Domestic Partner Domestic Partner Phone Father Name Pot Filler Status 09/11/19 23 1 O Positive 195 CLOSED Fetus Data First Name Last Name Admitted to NICU Weight (g) Sex Living Outcome Pediatric Complications Fetus ID Race Codes Race Delivery Type 33470 Problems Problem Notes 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 Will need echo eventually also - 11/17 1030 u/s only Level II 12/18 1:00 u/d only 01/16 1:00 u/s only Problem Name Start Date End Date Resolution Snomed Code Not e Asthma [id number] quiscent Past history of pre-eclampsia 08/16/2022 765009902038018 LD ASA 162 mg/day; with pulmonary edema x2 Vertebral abnormalities, anal atresia, cardiac abnormalities, tracheo-esophageal fistula, renal anomalies, limb defects syndrome 724567497 wit h this- has seen genetics, to get echo - MFM rec no risk to fetus Anxiety in 693151721 23229 increased lexapro to 20, not yet improving History of sleeve gastrectomy 463021536112999 MFM rec jell y madrid test instead of liquid, to see bariatric team Feb Vitamin B12 level below reference range 700029587 B12 daily Vitamin D deficiency 36757479 1,000-2,000 IUs daily Anemia 12/07/2022 931585383 1 tab slo wfe bid- IV infusion referral faxed 12/14 Hypoglycemia 991315200 borderl ine - precautions given Chris Calculation [...] Date Ultra Sound Latest Days Gestation 0 [email or web address] 09/12/2022 04/01/20 23 0 Pre- Flowsheet Flowsheet Date 09/11/2022 Calvin Score Blood Edema Fundus Height Fundus Units Glucose Ketones Leukocytes Nitrite Labor Signs Protein Cervic Dilation Cervic Effacement Cervic Station neg none none trace Type Weight in lbs Pre/Post Dialysis Refused Weight 193.65668902797 BP Diastolic BP Location Tested BP Systolic [...] Weight in lbs Pre/Post Dialysis Refused Weight 198.899175481867 BP Diastolic BP Location Tested BP Systolic BP Type 69 108 Fetus Heart Rate Present Fetus Movement A Yes Comments Doing well. MFM visit next w [place]. Flowsheet Date 11/06/2022 Calvin Score Blood Edema Fundus Height Fundus Units Glucose Ketones Leukocytes Nitrite Labor Signs Protein Cervic Dilation Cervic Effacement Cervic Station neg none 20 none trace Type Weight in lbs Pre/Post Dialysis Refused Weight 206.769841790097 BP Diastolic BP Location Tested BP Systolic BP Type 61 95 Fetus Heart Rate Present A 149 Fetus Movement A Yes Comments Doing well. Taking two baby aspirin daily per mfm recommendation. Having a boy. Baseline anatomy with [facility]. Flowsheet Date 12/04/2022 Calvin Score Blood Edema Fundus Height Fundus Units Glucose Ketones Leukocytes Nitrite Labor Signs Protein Cervic Dilation Cervic Effacement Cervic Station neg none 26 none trace Type Weight in lbs Pre/Post Dialysis Refused Weight 207.725758036332 BP Diastolic BP Location Tested BP Systolic [...] Weight in lbs Pre/Post Dialysis Refused Weight 209.978489066663 BP Diastolic BP Location Tested BP Systolic BP Type 60 97 Fetus Heart Rate Present Fetus Movement A Yes Comments patient is having some contr actions, nausea and vomiting. will callout zofran, one hour done 70, iron infusions start [...] At Estimated Date of Delivery false Thalassemia (Divehi, Micronesian, Mediterranean, Or Background): MCV < 80 false Neural Tube Defect (Meningom yelocele, Spina Bifida, Or Anencephaly) false Congenital Heart Defect true with VACTERL Down Syndrome false Gera-Sachs (eg, Gnosticism, Cajun, Hebrew-Lima) f alse Sandy Disease false Sickle Cell Disease Or Trait () false Hemophilia Or Other Blood Disorders false Muscular Dystrophy false Cystic Fibrosis false Marbella's Chorea false Intellectual Disability/Autism false If Yes, [...]
--- OUTSIDE RECORDS SUMMARY | 2025-06-09 16:14 | XMS_ITS | Clinical Summary ---
Author Organization [facility] true[x] Media Address [address] [place] [address] Care Team Providers Care Bulb Grower Name Role Phone Radha Keller STAR-STATISTICAL ENGINEER Primary Care Provide r Source Comments [facility] true[x] Media,non-owned Affiliates and Associated Physician Practices is amultiple site organization consisting of ambulatory clinics and hospital sitesin [place], [place], [place] and [place]. This disclosure is being madepursuant to the Care Everywhere program and may not contain all information available regarding this patient. Last updated 18.[facility] true[x] Media Allergies Active Allergy Reactions Criticality Noted Date [...] this medication since 2018 Active Probiotic Product (Xuba) capsuleIndicati ons:Bariatric surgery status Take 1 (one) capsule by mouth once daily 30 capsule 3 1 Active multivitamin daily tabletIndicatio ns:do not restart until marketing operations manager visit Take 1 (one) tablet by mouth daily with food Reasons: do not restart until marketing operations manager visit 1 Active CALCIUM CITRATE PO Take [...] Sex Assigned at Female 08/05/2020 8:32 PM MEDICAL PHYSIOLOGIST Legal Sex Female 10:53 AM MEDICAL PHYSIOLOGIST Gender Identity Female 08/05/2020 8:32 PM MEDICAL PHYSIOLOGIST Sexual Orientation Straight 08/05/2020 8: 32 PM MEDICAL PHYSIOLOGIST Last Filed Vital Signs Vital Sign Reading Time Taken Comments Blood Pressure 110/70 10/18/2022 11:03 AM MEDICAL PHYSIOLOGIST Pulse 81 10/18/2022 11:03 AM MEDICAL PHYSIOLOGIST Temperature 36.6 C (97.8 F) 12/16/2021 10:36 AM CDT Respiratory Rate 20 12/16/2021 10:36 AM CDT Oxygen Saturation 99% 12/16/2021 10:36 AM CDT Inhaled Oxygen Concentration - - Weight 90 kg (198 lb 6.4 oz) 10/18/2022 11:03 AM MEDICAL PHYSIOLOGIST Height 170.2 cm (5' 7) 10/18/2022 11:03 AM MEDICAL PHYSIOLOGIST Body Mass Index 31.07 10/18/2022 11:03 AM MEDICAL PHYSIOLOGIST Plan of Treatment Health Maintenance Due Date Last Done Comments HEPATITIS C SCREENING 04/08/2010 DTAP/TDAP/TD VACCINES (1 - Tdap) 2011 HEPATITIS B VACCINE (1 of 3 - 19+ 3-dose series) 2011 HPV VACCINE (1 - 3-dose SCDM series) 2019 DEPRESSION SCREENING 08/27/2024 COVID-19 VACCINE (1 - 2023-2 5 season) 2025 INFLUENZA VACCINE (#1) 2025 7, 05/27/2014 PAP SMEAR 08/16/2025 08/16/2022, 08/16/2022 ZOSTER VACCINE (1 of 2) 2042 [...] this topic Medical Devices Implanted Type Area Cutter Grinder Operator Device Identifier Shelf Expiration Date Model / Serial / Lot Kit Tissue Clsr Duo Tssl 1 Prefl Syr Implanted:Qty: 1 on 01/25/2021 by Bijal Riddle MD at [facility] N/A: Stomach LearnBIG 06/26/2022 [id number] / / [id number] Insurance [facility] AETNA Advance Directives * Full Code (Latest Code Status on File) Date Activated Date Inactivated Comments 01/25/2021 12:47 PM 01/26/2021 2:28 PM Care Teams Bulb Grower Relationship Specialty Start Date End Date Radha Keller APRN-HYACINTH [address] [place] [phone] PCP - General Nurse Practitioner 06/18/20
--- OUTSIDE RECORDS SUMMARY | 2025-06-09 16:14 | XMS_ITS | Clinical Summary ---
Author Organization [facility] Address [address] [place] [address] Phone Care Team Providers Care Meteorology Instructor Name Role Phone Unavailable Primary Care Provider Unavailabl e Allergies Active Allergy Reactions Criticality Noted Date Comments Dimenhydrinate Other (See Comments) Low 10/19/2017 Tingly all over Medications albuterol sulfate 90 mcg/actuation metered powder inhaler Take by inhalation every 6 hours as needed . Active cyanocobalamin (VITAMIN B-12) 1,[address]cg Tablet, Sub[address]ual Place 1 Tablet (1,000 mcg) under tongue daily. 90 Tablet 2 Active Active Problems Problem Noted Date Diagnosed Date Family history of DVT 10/19/2017 Mild intermittent asthma without complication Morbid obesity 10/19/2017 BMI 45.0-49.9, adult 06/15/2017 PCOS (polycystic ovarian syndrome) 06/15/2017 Resolved Problems Problem Noted Date Diagnosed Date Resolved Date Fertility testing 10/19/2017 10/19/2017 Encounters Date Type Department Care Team Description 06/09/2025 1:30 PM CDT Office Visit [facility] Oncology and Hematology - [address] [place] [phone] Yaya Beverly MD Chronic anemia (Primary Dx) from Last 3 Months Immunizations Immunization Administration Dates Next Due Influenza Seasonal Unspecified Formulation IM Family History Medical History Relation Name Comments Healthy Brother No Known Problems Child 1 No Known Problems Child 2 No Known Problems Child 3 Healthy Father Alzheimer's Disease Maternal Grandfather Heart Disease Maternal Grandmother Stroke Maternal Grandmother Thyroid Disease Maternal Grandmother Healthy Mother Hypertension Mother Other Mother PE blood clot d ue to fracture, immobilizain Pacemaker Paternal Grandfather Throat Cancer Paternal Grandfather THROAT Heart Disease Paternal Grandmother Pacemaker Paternal Grandmother Other Sister 1 MIGRAINES/SEIZR ES Seizures Sister 1 Migraines Sister 2 half Other Sister 2 half MIGRAINES/seizu res Bleeding Problem Neg Hx Breast Cancer Neg Hx Colon Cancer Neg Hx Lung Cancer Neg Hx Ovarian Cancer Neg Hx SLE Neg Hx Relation Name Status Comments Brother Alive Child 1 Alive Child 2 Alive Child 3 Alive Father Alive Maternal Grandfather Maternal Grandmother [...] on file Legal Sex Female 9:18 PM PULP SCREEN OPERATOR Gender Identity Not on file Sexual Orientation Not on file 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 Not on file Not [...] Mass Index 34.44 06/09/2025 1:40 PM CDT Plan of Treatment Upcoming Encounters Date Type Department Care Team (Late st Contact Info) Description 06/17/2025 4:30 PM CDT Telephone Check Up [facility] Oncology and Hematology [facility] [address] [place] [phone] Yaya Beverly MD [address] [facility] [employer] [address] [place] [phone] Health Maintenance Due Date Last Done Comments PAP SMEAR 2022 06/15/2017 CERVICAL CANCER SCREENING 06/15/2022 HPV/Cotest (21-29) 06/15/2022 06/15/2017 HPV/Cotest (30-65) 06/15/2022 06/15/2017 Preventative Visit- Commercial 08/27/2024 09/02/2020 , 06/15/2017 INFLUENZA VACCINE (#1) 2025 8, 05/21/2017, 05/27/2014 DTAP/TDAP/TD VACCINES (5 - T d or Tdap) 09/10/2029 09/10/2019, 1992, 1992, Additional history exists HEPATITIS B VACCINES Completed 06/04/2002, 1992, 1992, Additional history exists HPV VACCINES Completed 10/26/2008, 05/29, 04/09/2008 Procedures Procedure Name Priority Date/Time Associated Diagnosis [...] has been evaluated with computer assisted technology. RN RECOVERY: SEE COMMENT 2016 3:41 PM CDT [facility] Comment: DDS, CT(ASCP) CT screening location: [place] [address] Administration NAZARIO Ramirez [id number] REVIEW RN RECOVERY: SEE COMMENT 06/21/2017 3:41 PM CDT [facility] Comment: ABC, CT(ASCP) CT screening location: [place] [address] Administration NAZARIO Ramirez Genital SWAB OF ENDOCERVIX / Unknown Collection / Unknown 06/15/2017 1:49 PM CDT 06/15/2017 5:00 PM CDT Narrative [facility] - 06/21/2017 3:41 PM CDT Performing Organization Information: Site ID: Name: [facility] Address: [facility] Administration NAZARIO Dangelo [id number] Director: Sanjiv Og MD November Aren GRANADOS PATHOLOGY/CYTOLOGY ORDERABLES Final Result [facility] from Last 3 Months or Most Recently Relevant to Health Maintenance Insurance [facility] CHOICE [id number] [place]ICAID [place]
--- OUTSIDE RECORDS SUMMARY | 2025-06-09 16:14 | XMS_ITS | Clinical Summary ---
Author Organization [facility] al Address [address] [place] [address] Care Team Providers Care Jute Bag Sewer Name Role Phone Shaq Agarwal MD Unavailable [phone] Lyric Nascimento NP Primary Care Provider [phone] Allergies Active Allergy Reactions Criticality Noted Date Comments Acetaminophen Other (See comments) Low 04/23/2019 Dimenhydrinate Other (See comments) Low 10/19/2017 Tingly all over Hydrocodone Bitartrate Other (See comments) Low 04/23/2019 Hydrocodone-Acetaminophen Nausea & Vomiting Low Medications buPROPion SR (WELLBUTRIN SR) 150 mg 12 hr tablet Acti ve albuterol sulfate 90 mcg/actuation aerosol powdr breath activated Inhale every 6 hours as needed Active no.70-dori-RL-dha 28 mg iron- 1 mg-200 mg capsule [...] Supervision of high risk in second tri mester 05/12/2019 Overview (05/12/2019): [] Co-management vs. [] Full M Care; Referring Provider: Shaq Agarwal [phone] [x] Dating Criteria: LMP 01/29/19 THOMAS 11/05/19 [...] [] MOC: [] Method of feeding: [] Marketing Lead: [] PP Depression Discussed: Abdominal pain 10/13/2016 [...] on file Legal Sex Female 3:51 AM SENIOR ADVOCATE Gender Identity Not on file Sexual Orientation [...] 167.6 cm (5' 6) 09/23/2019 1:50 PM SENIOR ADVOCATE Body Mass Index 35.51 09/23/2019 1:50 PM SENIOR ADVOCATE Plan of Treatment Health Maintenance Due Date Last Done Comments Cervical Cancer Screening 1992 Depression Screening 1992 Varicella Vaccines (1 of 2 - 13+ 2-dose series) 2005 Regular Well Visit/Exam 18-64 2010 Pneumococcal vaccine <65 (1 of 2 - PCV) 2011 Influenza Vaccine (#1) 2025 05/21/2017, 2013 DTaP/Tdap/Td Vaccine (6 - Td or Tdap) 09/10/2029 09/10/2019, 07/28/2018, 1992, Additional history exists Hepatitis B Screening Completed 06/04/2002 , 1992, 1992, Additional history exists HPV Vaccines Completed 10/26/2008, 05/29, 04/09/2008 Hepatitis C Screening Completed 09/10/2019, 019 Procedures Procedure Name Priority Date/Time Associated Diagnosis Comments HEPATITIS PANEL, ACUTE Timed 09/10/2019 9:40 AM SENIOR ADVOCATE from Last 3 Months or Most Recently Relevant to Health Maintenance Results * Hepatitis panel, acute (09/10/2019 9:40 AM SENIOR ADVOCATE) Hep A IgM Nonreactive Nonreactive [facility] Comment: Interpretive Data If test is reported as GRAYZONE, new sample should be drawn in two weeks for testing. Current interpretive data was last revised on 2016. Hep B core IgM Nonreactive Nonreactive [facility] Comment: Interpretive Data If test is reported as GRAYZONE, new sample should be drawn for testing. Current interpretive data was last revised on 2016. Hep C Ab Nonreactive Nonreactive [facility] Comment: Interpretive Data Positive results should be confirmed by a molecular method. If positive, a second separately collected sample should be submitted for Hepatitis C Virus (HCV) RNA Detection and Quantitation by Real-Time Reverse Social Service Manager-PCR (RT-PCR). Current interpretive data was last revised on 2016. HepBsAg Nonreactive Nonreactive [facility] Blood specimen (specimen) 09/10/2019 9:40 AM SENIOR ADVOCATE 09/10/2019 10:14 AM SENIOR ADVOCATE us Krystal Hankins MD LAB MICRO BIOLOGY - GENERAL ORDERABLES Edited Result - Final [facility] Department [place] [address] from Last 3 Months or Most Recently Relevant to Health Maintenance Insurance [facility] [place] [id number] [place] [address] Advance Directives For more information, please contact: [phone] * Full Code (Latest Code Status on File) Date Activated Date Inactivated Comments 09/09/2019 8:40 PM 09/12/2019 5:22 PM Full CPR in case of cardiopulmonary arrest Care Teams Jute Bag Sewer Relationship Specialty Start Date End Date Lyric Nascimento NP [email or web address] [address] PCP - General Family Medicine 11/06/23 Shaq Agarwal MD [address] [place] [address] Referring Physician Obstetrics and Gynecology 05/06/19
[2025-06-09 16:28] LABS: Alanine Aminotransferase 12 U/L (6-35); Albumin Level 4.5 g/dL (3.5-5.1); Alkaline Phosphatase 46 U/L (38-126); Anion Gap 9 mmol/L (4-12); Aspartate Amino Transferase 26 U/L (14-36); Bilirubin,Total 0.9 mg/dL (0.2-1.3); Blood Urea Nitrogen 7 mg/dL (7-17); Calcium 9.2 mg/dL (8.4-10.2); Carbon Dioxide 29 mmol/L (22-30); Chloride 103 mmol/L (98-107); Estimated Glomerular Filt Rate > 60; Glucose 95 mg/dL (65-110); Potassium 3.9 mmol/L (3.4-5.0); Sodium 141 mmol/L (137-145); Total Protein 7.9 g/dL (6.3-8.2)
[2025-06-09 16:40] LABS: Iron 28 ug/dL (37-170)
[2025-06-09 16:52] LABS: Percent Iron Saturation 6 % (20-50)
[2025-06-09 17:17] LABS: Ferritin 5.47 ng/mL (6.24-137)
[2025-06-09 17:39] LABS: Vitamin B12 337.0 pg/mL (239-931)
== END 2025-06-09 14:18 | disposition home or self-care (01) ==
PROVIDERS: PCP Nurse Practitioner Family; Visit Provider Internal Medicine Hematology & Oncology
DX: D64.9 Anemia, unspecified (principal)
CPT/HCPCS: 36415; 80053; 82607; 82728; 82746; 83540; 83550; 83921; 84238; 85025